=== PATIENT | female | born 1955 | race Caucasian/White ===

== ENCOUNTER 2017-05-19 11:53 | Inpatient (IN) | payer MEDICAID ==
[2017-05-19] MEDS ORDERED: VANCOMYCIN 1 GM (PMX) 250 ML IVPB (12:25)
[2017-05-19] MEDS ORDERED: ACETAMINOPHEN 325 MG TAB PO (13:00)
[2017-05-19] MEDS ORDERED: ONDANSETRON 4 MG INJ IV (13:00)
[2017-05-19 13:23] LABS: ADD MAN DIFF? NO
[2017-05-19 13:27] LABS: WHITE BLOOD COUNT 8.2 10^3/ul (4.8-10.8)
[2017-05-19 13:27] LABS: BASOPHIL # 0.1 10^3/ul (0.0-0.1); BASOPHILS % 0.7 % (0.0-2.0); EOSINOPHILS # 0.1 10^3/ul (0.0-0.5); EOSINOPHILS % 1.2 % (0.0-7.0); HEMATOCRIT 36.8 % (37.0-47.0); HEMOGLOBIN 11.6 g/dl (12.0-16.0); LYMPHOCYTES # 0.9 10^3/ul (0.8-2.9); LYMPHOCYTES % 10.4 % (15.0-51.0); MEAN CORPUSCULAR HGB CONC 31.5 g/dl (32.0-37.0); MEAN CORPUSCULAR VOLUME 101.7 fl (82.0-101.0); MEAN PLATELET VOLUME 10.7 fl (7.4-10.4); MONOCYTE # 0.5 10^3/ul (0.3-0.9); MONOCYTES % 5.6 % (0.0-11.0); NEUTROPHIL # 6.7 10^3/ul (1.6-7.5); NEUTROPHILS % 81.7 % (39.0-77.0); PLATELET COUNT 211 10^3/UL (140-415); RED BLOOD COUNT 3.62 10^6/ul (4.20-5.40); RED CELL DISTRIBUTION WIDTH 14.5 % (11.5-14.5)
[2017-05-19 13:49] LABS: ALANINE AMINOTRANSFERASE 39 IU/L (13-69); ALBUMIN 3.6 g/dl (3.3-4.9); ALBUMIN/GLOBULIN RATIO 0.73; ALKALINE PHOSPHATASE 267 IU/L (42-121); ANION GAP 21 (8-16); ASPARTATE AMINO TRANSFERASE 40 IU/L (15-46); BILIRUBIN,INDIRECT 0.1 mg/dl (0-1.1); BILIRUBIN,TOTAL 0.1 mg/dl (0.2-1.3); BLOOD UREA NITROGEN 33 mg/dl (7-20); CALCIUM 8.7 mg/dl (8.4-10.2); CARBON DIOXIDE 21 mmol/L (21-31); CHLORIDE 101 mmol/L (97-110); CREATININE 5.58 mg/dl (0.44-1.00); SODIUM 138 mmol/L (135-144); TOTAL PROTEIN 8.5 g/dl (6.1-8.1)
[2017-05-19 13:56] LABS: GLUCOSE 460 mg/dl (70-220)
[2017-05-19 13:57] LABS: LACTIC ACID 3.4 mmol/L (0.5-2.0)
[2017-05-19 13:59] LABS: INR 1.05; PROTIME 13.8 Sec (11.9-14.9); PT RATIO 1.1
[2017-05-19 14:00] LABS: PARTIAL THROMBOPLASTIN TIME 30.4 Sec (25.0-35.0)
[2017-05-19] MEDS: PROMETHAZINE 25 MG TAB PO (15:32)
[2017-05-19] MEDS: CEFEPIME 2GM/50 ML (PMX) 50 ML IVPB (15:35)
[2017-05-19] MEDS ORDERED: DEXTROSE 50% 50 ML SYRINGE IV (16:00)
[2017-05-19] MEDS ORDERED: GLUCAGON 1 MG INJ IM (16:00)
[2017-05-19] MEDS ORDERED: GLUCOSE GEL 15 GRAM TUBE PO ×2 (16:00)
[2017-05-19] MEDS: GENTAMICIN IN NACL, ISO-OSM 50 ML IVPB (16:08)
[2017-05-19] MEDS ORDERED: DIPHENHYDRAMINE 50 MG INJ IM (16:30)
[2017-05-19] MEDS: DIPHENHYDRAMINE 50 MG INJ IV (16:37)
[2017-05-19] MEDS: SEVELAMER CARBONATE 0.8 GM PKT PO (17:17)
[2017-05-19] MEDS: INSULIN ASPART [NOVOLOG] 3 ML PEN SC ×3 (17:46→20:33)
[2017-05-19] MEDS: INSULIN GLARGINE [LANtus] 3 ML PEN SC (20:36)
[2017-05-19] MEDS: ZOLPIDEM 5 MG TAB PO (22:35)
[2017-05-20] MEDS: ACCU-CHEK XX (02:00)
[2017-05-20] MEDS ORDERED: METOPROLOL 5 MG INJ (07:00)
[2017-05-20] MEDS: DEXTROSE 50% 50 ML SYRINGE IV (07:25)
[2017-05-20] MEDS: INSULIN ASPART [NOVOLOG] 3 ML PEN SC ×4 (07:42→21:00)
[2017-05-20] MEDS: SEVELAMER CARBONATE 0.8 GM PKT PO ×3 (07:53→17:04)
[2017-05-20] MEDS ORDERED: MIDAZOLAM 1 MG/ML 2 ML INJ (08:04)
[2017-05-20] MEDS ORDERED: ROPIVACAINE 0.5 % 30 ML VIAL (08:05)
[2017-05-20 08:25] LABS: ADD MAN DIFF? NO
[2017-05-20 08:29] LABS: BASOPHILS % 0.4 % (0.0-2.0); EOSINOPHILS # 0.1 10^3/ul (0.0-0.5); EOSINOPHILS % 1.1 % (0.0-7.0); HEMATOCRIT 33.1 % (37.0-47.0); HEMOGLOBIN 10.9 g/dl (12.0-16.0); LYMPHOCYTES # 0.7 10^3/ul (0.8-2.9); LYMPHOCYTES % 7.9 % (15.0-51.0); MEAN CORPUSCULAR HEMOGLOBIN 32.8 pg (29.0-33.0); MEAN CORPUSCULAR HGB CONC 32.9 g/dl (32.0-37.0); MEAN CORPUSCULAR VOLUME 99.7 fl (82.0-101.0); MEAN PLATELET VOLUME 10.6 fl (7.4-10.4); MONOCYTE # 0.8 10^3/ul (0.3-0.9); MONOCYTES % 8.7 % (0.0-11.0); NEUTROPHIL # 7.4 10^3/ul (1.6-7.5); NEUTROPHILS % 81.6 % (39.0-77.0); PLATELET COUNT 211 10^3/UL (140-415); RED BLOOD COUNT 3.32 10^6/ul (4.20-5.40); RED CELL DISTRIBUTION WIDTH 14.1 % (11.5-14.5)
[2017-05-20] MEDS: BUPIVACAINE 0.5% (SDV) 30 ML INJ (08:30)
[2017-05-20] MEDS: LIDOCAINE 1% (MPF) 30 ML INJ (08:30)
[2017-05-20] MEDS ORDERED: GENTAMICIN 80 MG INJ (08:43)
[2017-05-20] MEDS: IOHEXOL 300MG/ML 30 ML BTL (08:45)
[2017-05-20 08:50] LABS: ANION GAP 20 (8-16); BLOOD UREA NITROGEN 41 mg/dl (7-20); CALCIUM 8.6 mg/dl (8.4-10.2); CARBON DIOXIDE 24 mmol/L (21-31); CHLORIDE 103 mmol/L (97-110); CREATININE 6.05 mg/dl (0.44-1.00); GLUCOSE 69 mg/dl (70-220); MAGNESIUM 1.8 mg/dl (1.7-2.5); PHOSPHORUS 7.3 mg/dl (2.5-4.9); POTASSIUM 4.1 mmol/L (3.5-5.1); SODIUM 143 mmol/L (135-144)
[2017-05-20] MEDS: HEPARIN 1000 UNITS/ML 10 ML INJ ×2 (09:00→09:05)
[2017-05-20] MEDS ORDERED: DIPHENHYDRAMINE 50 MG INJ IV (10:30)
[2017-05-20] MEDS ORDERED: ONDANSETRON 4 MG INJ IV (10:30)
[2017-05-20] MEDS ORDERED: FENTAnyl 50 MCG/ML VIAL IV (10:30)
[2017-05-20] MEDS ORDERED: hydrALAzine 20 MG INJ IV (10:30)
[2017-05-20] MEDS ORDERED: HYDROmorphONE (0.2 MG/ML) 10ML SYG IV (10:30)
[2017-05-20] MEDS ORDERED: LABETALOL HCL 20MG INJ IV (10:30)
[2017-05-20] MEDS: METOPROLOL (XL) 100 MG TAB PO (11:50)
[2017-05-20 12:02] LABS: HEPATITIS B SURFACE ANTIGEN NEGATIVE (NEGATIVE)
[2017-05-20] MEDS: DESMOPRESSIN IVPB (14:00)
[2017-05-20] MEDS: SOD CHLORIDE 0.9% IVPB (14:00)
[2017-05-20 14:20] LABS: HEMATOCRIT 29.1 % (37.0-47.0); HEMOGLOBIN 9.6 g/dl (12.0-16.0)
[2017-05-20] MEDS ORDERED: PROMETHAZINE 25 MG TAB PO (14:30)
[2017-05-20] MEDS ORDERED: GENTAMICIN IV PER PHARMACY XX (14:30)
[2017-05-20] MEDS: PROMETHAZINE 25 MG TAB PO (15:23)
[2017-05-20] MEDS: CEFEPIME 1GM/50 ML IVPB (17:04)
[2017-05-20] MEDS: INSULIN GLARGINE [LANtus] 3 ML PEN SC (20:37)
[2017-05-20] MEDS ORDERED: CEFEPIME 1GM/50 ML (PMX) 50 ML IVPB (21:00)
[2017-05-20 22:30] LABS: IMMEDIATE SPIN CROSSMATCH 1 1
[2017-05-20] MEDS: ZOLPIDEM 5 MG TAB PO (22:45)
[2017-05-21] MEDS: DIPHENHYDRAMINE 50 MG INJ IV ×2 (01:20→21:19)
[2017-05-21] MEDS: ACCU-CHEK XX ×3 (02:00→21:17)
[2017-05-21 06:36] LABS: ADD MAN DIFF? NO
[2017-05-21 06:43] LABS: BASOPHILS % 0.3 % (0.0-2.0); EOSINOPHILS # 0.1 10^3/ul (0.0-0.5); HEMATOCRIT 27.9 % (37.0-47.0); HEMOGLOBIN 9.2 g/dl (12.0-16.0); LYMPHOCYTES % 8.8 % (15.0-51.0); MEAN CORPUSCULAR HEMOGLOBIN 31.9 pg (29.0-33.0); MEAN CORPUSCULAR VOLUME 96.9 fl (82.0-101.0); MEAN PLATELET VOLUME 10.9 fl (7.4-10.4); MONOCYTE # 0.9 10^3/ul (0.3-0.9); NEUTROPHIL # 9.5 10^3/ul (1.6-7.5); NEUTROPHILS % 81.6 % (39.0-77.0); PLATELET COUNT 165 10^3/UL (140-415); RED BLOOD COUNT 2.88 10^6/ul (4.20-5.40); RED CELL DISTRIBUTION WIDTH 16.5 % (11.5-14.5)
[2017-05-21 06:43] LABS: WHITE BLOOD COUNT 11.6 10^3/ul (4.8-10.8)
[2017-05-21 07:03] LABS: ANION GAP 19 (8-16); BLOOD UREA NITROGEN 44 mg/dl (7-20); CARBON DIOXIDE 19 mmol/L (21-31); CHLORIDE 110 mmol/L (97-110); CREATININE 6.53 mg/dl (0.44-1.00); GLUCOSE 141 mg/dl (70-220); MAGNESIUM 1.9 mg/dl (1.7-2.5); PHOSPHORUS 6.5 mg/dl (2.5-4.9); POTASSIUM 4.5 mmol/L (3.5-5.1); SODIUM 143 mmol/L (135-144)
[2017-05-21 07:07] LABS: GENTAMICIN,RANDOM 7.6 ug/ml
[2017-05-21] MEDS: INSULIN ASPART [NOVOLOG] 3 ML PEN SC ×4 (08:11→20:04)
[2017-05-21] MEDS: SEVELAMER CARBONATE 0.8 GM PKT PO ×3 (08:19→17:37)
[2017-05-21] MEDS: METOPROLOL (XL) 100 MG TAB PO (08:51)
[2017-05-21] MEDS: DEXTROSE 50% 50 ML SYRINGE IV (12:06)
[2017-05-21] MEDS: morphine 2 MG INJ IV (12:06)
[2017-05-21] MEDS ORDERED: GENTAMICIN 70 MG in SOD CHLORIDE 0.9% 50 ML IVPB (17:00)
[2017-05-21] MEDS: CEFEPIME 1GM/50 ML IVPB (17:36)
[2017-05-21] MEDS: ALTEPLASE (CATHFLO) 2 MG INJ CATHETER ×3 (18:10→21:07)
[2017-05-21] MEDS: ATORVASTATIN 20 MG TAB PO (21:19)
[2017-05-21] MEDS: INSULIN GLARGINE [LANtus] 3 ML PEN SC (21:26)
[2017-05-21] MEDS: ZOLPIDEM 5 MG TAB PO (22:14)
[2017-05-22] MEDS: ACCU-CHEK XX ×8 (02:00→21:08)
[2017-05-22 06:05] LABS: ADD MAN DIFF? NO
[2017-05-22 06:09] LABS: BASOPHILS % 0.4 % (0.0-2.0); EOSINOPHILS # 0.1 10^3/ul (0.0-0.5); EOSINOPHILS % 1.5 % (0.0-7.0); HEMATOCRIT 27.4 % (37.0-47.0); LYMPHOCYTES # 1.2 10^3/ul (0.8-2.9); LYMPHOCYTES % 12.7 % (15.0-51.0); MEAN CORPUSCULAR HGB CONC 32.8 g/dl (32.0-37.0); MEAN CORPUSCULAR VOLUME 97.5 fl (82.0-101.0); MONOCYTE # 0.9 10^3/ul (0.3-0.9); MONOCYTES % 9.3 % (0.0-11.0); NEUTROPHILS % 75.9 % (39.0-77.0); PLATELET COUNT 168 10^3/UL (140-415); RED BLOOD COUNT 2.81 10^6/ul (4.20-5.40); RED CELL DISTRIBUTION WIDTH 16.5 % (11.5-14.5)
[2017-05-22 06:09] LABS: WHITE BLOOD COUNT 9.2 10^3/ul (4.8-10.8)
[2017-05-22 06:59] LABS: ANION GAP 15 (8-16); BLOOD UREA NITROGEN 29 mg/dl (7-20); CALCIUM 8.1 mg/dl (8.4-10.2); CARBON DIOXIDE 26 mmol/L (21-31); CHLORIDE 106 mmol/L (97-110); GLUCOSE 64 mg/dl (70-220); MAGNESIUM 1.8 mg/dl (1.7-2.5); POTASSIUM 4.2 mmol/L (3.5-5.1); SODIUM 143 mmol/L (135-144)
[2017-05-22] MEDS: INSULIN ASPART [NOVOLOG] 3 ML PEN SC ×7 (07:55→21:00)
[2017-05-22] MEDS ORDERED: INSULIN GLARGINE [LANtus] 3 ML PEN SC (08:00)
[2017-05-22] MEDS: ASPIRIN 81 MG TAB PO (08:11)
[2017-05-22] MEDS: SEVELAMER CARBONATE 0.8 GM PKT PO ×3 (08:12→17:17)
[2017-05-22] MEDS: INSULIN GLARGINE [LANtus] 3 ML PEN SC ×2 (08:13→21:12)
[2017-05-22] MEDS: METOPROLOL (XL) 100 MG TAB PO (08:15)
[2017-05-22] MEDS: LISINOPRIL 20 MG TAB PO (12:02)
[2017-05-22] MEDS: EPOETIN 10000 UNITS/1 ML INJ (ESRD) SC (12:04)
[2017-05-22] MEDS: morphine 2 MG INJ IV (14:56)
[2017-05-22] MEDS: HYDROGEN PEROXIDE 118 ML TOP (14:57)
[2017-05-22] MEDS: CEFEPIME 1GM/50 ML IVPB (15:36)
[2017-05-22] MEDS: ATORVASTATIN 20 MG TAB PO (21:00)
[2017-05-22 21:01] LABS: THYROID STIMULATING HORMONE 0.391 MIU/L (0.465-4.680)
[2017-05-22] MEDS: DIPHENHYDRAMINE 50 MG INJ IV (21:17)
[2017-05-22 21:18] LABS: HEPATITIS C VIRAL ANTIBODY NEGATIVE (NEGATIVE)
[2017-05-22] MEDS: ZOLPIDEM 5 MG TAB PO (23:26)
[2017-05-23] MEDS: ACCU-CHEK XX ×8 (02:00→21:03)
[2017-05-23] MEDS: INSULIN ASPART [NOVOLOG] 3 ML PEN SC ×7 (07:55→21:00)
[2017-05-23] MEDS: SEVELAMER CARBONATE 0.8 GM PKT PO ×3 (08:15→17:37)
[2017-05-23] MEDS: ASPIRIN 81 MG TAB PO (08:15)
[2017-05-23] MEDS: METOPROLOL (XL) 100 MG TAB PO (08:16)
[2017-05-23] MEDS: LISINOPRIL 20 MG TAB PO (08:18)
[2017-05-23] MEDS: INSULIN GLARGINE [LANtus] 3 ML PEN SC ×2 (08:32→21:45)
[2017-05-23] MEDS: HYDROGEN PEROXIDE 118 ML TOP (08:33)
[2017-05-23 08:38] LABS: CHOL/HDL RATIO 2.9 RATIO; HDL CHOLESTEROL 33 mg/dl (35-98); LDL CHOLESTEROL,CALCULATED 46 mg/dl; TRIGLYCERIDES 85 mg/dl (0-149)
[2017-05-23 08:38] LABS: CHOLESTEROL 96 mg/dl (100-200)
[2017-05-23] MEDS ORDERED: SOD CHLORIDE 0.9% IVPB (12:00)
[2017-05-23] MEDS ORDERED: DAPTOMYCIN IVPB (12:00)
[2017-05-23] MEDS: HEPARIN 1000 UNITS/ML 10 ML INJ CATHETER (12:47)
[2017-05-23] MEDS: GENTAMICIN 60 MG in SOD CHLORIDE 0.9% 50 ML IVPB (14:29)
[2017-05-23] MEDS: PROMETHAZINE 25 MG TAB PO (14:30)
[2017-05-23 15:06] LABS: RAPID PLASMA REAGIN NONREACTIVE (NR)
[2017-05-23] MEDS: LINEZOLID 600 MG/D5W (PMX) 300 ML IVPB ×2 (15:12→22:37)
[2017-05-23] MEDS: EPOETIN 10000 UNITS/1 ML INJ (ESRD) SC (17:38)
[2017-05-23] MEDS: DIPHENHYDRAMINE 50 MG INJ IV (20:56)
[2017-05-23] MEDS: ATORVASTATIN 20 MG TAB PO (20:57)
[2017-05-24] MEDS: DIPHENHYDRAMINE 50 MG INJ IV ×2 (01:07→21:03)
[2017-05-24] MEDS: morphine LIQ (10 MG/5 ML) CUP PO (01:11)
[2017-05-24] MEDS: PROMETHAZINE 25 MG TAB PO ×2 (01:24→21:03)
[2017-05-24] MEDS: ACCU-CHEK XX ×8 (01:55→21:09)
[2017-05-24] MEDS: INSULIN ASPART [NOVOLOG] 3 ML PEN SC ×7 (07:55→21:00)
[2017-05-24] MEDS: SEVELAMER CARBONATE 0.8 GM PKT PO ×3 (09:20→17:58)
[2017-05-24] MEDS: ASPIRIN 81 MG TAB PO (09:21)
[2017-05-24] MEDS: METOPROLOL (XL) 100 MG TAB PO (09:21)
[2017-05-24] MEDS: LISINOPRIL 20 MG TAB PO (09:21)
[2017-05-24] MEDS: LINEZOLID 600 MG/D5W (PMX) 300 ML IVPB ×2 (09:21→21:03)
[2017-05-24] MEDS: INSULIN GLARGINE [LANtus] 3 ML PEN SC ×2 (09:51→21:00)
[2017-05-24] MEDS: HYDROGEN PEROXIDE 118 ML TOP (09:55)
[2017-05-24] MEDS: ATORVASTATIN 20 MG TAB PO (21:00)
[2017-05-25] MEDS: ACCU-CHEK XX ×8 (02:00→21:58)
[2017-05-25] MEDS: PROMETHAZINE 25 MG TAB PO ×2 (05:39→09:31)
[2017-05-25 05:54] LABS: ADD MAN DIFF? NO
[2017-05-25 06:01] LABS: BASOPHILS % 0.5 % (0.0-2.0); EOSINOPHILS # 0.1 10^3/ul (0.0-0.5); EOSINOPHILS % 1.8 % (0.0-7.0); HEMATOCRIT 26.9 % (37.0-47.0); HEMOGLOBIN 8.7 g/dl (12.0-16.0); LYMPHOCYTES # 1.1 10^3/ul (0.8-2.9); LYMPHOCYTES % 17.1 % (15.0-51.0); MEAN CORPUSCULAR HEMOGLOBIN 31.4 pg (29.0-33.0); MEAN CORPUSCULAR HGB CONC 32.3 g/dl (32.0-37.0); MEAN CORPUSCULAR VOLUME 97.1 fl (82.0-101.0); MEAN PLATELET VOLUME 10.9 fl (7.4-10.4); MONOCYTE # 0.6 10^3/ul (0.3-0.9); MONOCYTES % 9.6 % (0.0-11.0); NEUTROPHIL # 4.4 10^3/ul (1.6-7.5); NEUTROPHILS % 70.7 % (39.0-77.0); PLATELET COUNT 177 10^3/UL (140-415); RED BLOOD COUNT 2.77 10^6/ul (4.20-5.40); RED CELL DISTRIBUTION WIDTH 14.6 % (11.5-14.5)
[2017-05-25 06:01] LABS: WHITE BLOOD COUNT 6.3 10^3/ul (4.8-10.8)
[2017-05-25 06:24] LABS: ANION GAP 15 (8-16); BLOOD UREA NITROGEN 36 mg/dl (7-20); CALCIUM 8.1 mg/dl (8.4-10.2); CARBON DIOXIDE 25 mmol/L (21-31); CHLORIDE 101 mmol/L (97-110); CREATININE 7.32 mg/dl (0.44-1.00); GLUCOSE 117 mg/dl (70-220); PHOSPHORUS 6.8 mg/dl (2.5-4.9); POTASSIUM 4.5 mmol/L (3.5-5.1); SODIUM 136 mmol/L (135-144)
[2017-05-25] MEDS: INSULIN ASPART [NOVOLOG] 3 ML PEN SC ×7 (07:55→21:00)
[2017-05-25] MEDS: LINEZOLID 600 MG/D5W (PMX) 300 ML IVPB ×2 (08:38→21:58)
[2017-05-25] MEDS: ASPIRIN 81 MG TAB PO (09:00)
[2017-05-25] MEDS: HYDROGEN PEROXIDE 118 ML TOP (09:00)
[2017-05-25] MEDS: SEVELAMER CARBONATE 0.8 GM PKT PO ×3 (09:20→17:31)
[2017-05-25] MEDS: LISINOPRIL 20 MG TAB PO (09:21)
[2017-05-25] MEDS: METOPROLOL (XL) 100 MG TAB PO (09:22)
[2017-05-25] MEDS: ALTEPLASE (CATHFLO) 2 MG INJ CATHETER (14:58)
[2017-05-25] MEDS ORDERED: ALTEPLASE (CATHFLO) 2 MG INJ CATHETER (15:00)
[2017-05-25] MEDS: GLUCOSE GEL 15 GRAM TUBE BUCCAL (19:56)
[2017-05-25] MEDS: INSULIN GLARGINE [LANtus] 3 ML PEN SC ×2 (20:03→20:51)
[2017-05-25] MEDS: DEXTROSE 50% 50 ML SYRINGE IV (20:45)
[2017-05-25] MEDS: ATORVASTATIN 20 MG TAB PO (21:00)
[2017-05-25] MEDS ORDERED: PROCHLORPERAZINE 10 MG INJ IV (21:30)
[2017-05-26] MEDS: ALTEPLASE (CATHFLO) 2 MG INJ CATHETER ×2 (01:57→01:59)
[2017-05-26] MEDS: ACCU-CHEK XX ×8 (02:48→21:45)
[2017-05-26] MEDS: EPOETIN 10000 UNITS/1 ML INJ (ESRD) SC (03:35)
[2017-05-26] MEDS: PROMETHAZINE 25 MG TAB PO (03:36)
[2017-05-26] MEDS: morphine LIQ (10 MG/5 ML) CUP PO (06:14)
[2017-05-26] MEDS: SEVELAMER CARBONATE 0.8 GM PKT PO ×3 (07:55→17:55)
[2017-05-26] MEDS: INSULIN ASPART [NOVOLOG] 3 ML PEN SC ×7 (07:55→21:00)
[2017-05-26] MEDS: HYDROGEN PEROXIDE 118 ML TOP (09:00)
[2017-05-26] MEDS: LINEZOLID 600 MG/D5W (PMX) 300 ML IVPB ×2 (09:00→21:00)
[2017-05-26] MEDS: LISINOPRIL 20 MG TAB PO ×2 (09:00→21:00)
[2017-05-26] MEDS: INSULIN GLARGINE [LANtus] 3 ML PEN SC ×3 (09:00→21:00)
[2017-05-26] MEDS: ASPIRIN 81 MG TAB PO (09:00)
[2017-05-26] MEDS: METOPROLOL (XL) 100 MG TAB PO (11:30)
[2017-05-26 12:06] LABS: IRON 76 ug/dl (35-150)
[2017-05-26 12:15] LABS: % IRON SATURATION 44 % SAT (22-52); TOTAL IRON BINDING CAPACITY 171 ug/dl (241-421)
[2017-05-26] MEDS: ATORVASTATIN 20 MG TAB PO (21:00)
[2017-05-27] MEDS: DIPHENHYDRAMINE 50 MG INJ IV ×2 (00:55→21:35)
[2017-05-27] MEDS: ACCU-CHEK XX ×6 (02:46→14:08)
[2017-05-27 06:57] LABS: ADD MAN DIFF? NO
[2017-05-27 06:58] LABS: WHITE BLOOD COUNT 7.2 10^3/ul (4.8-10.8)
[2017-05-27 06:58] LABS: BASOPHIL # 0.1 10^3/ul (0.0-0.1); BASOPHILS % 0.8 % (0.0-2.0); EOSINOPHILS # 0.1 10^3/ul (0.0-0.5); EOSINOPHILS % 1.8 % (0.0-7.0); HEMATOCRIT 28.8 % (37.0-47.0); HEMOGLOBIN 9.3 g/dl (12.0-16.0); LYMPHOCYTES % 14.4 % (15.0-51.0); MEAN CORPUSCULAR HEMOGLOBIN 31.8 pg (29.0-33.0); MEAN CORPUSCULAR HGB CONC 32.3 g/dl (32.0-37.0); MEAN CORPUSCULAR VOLUME 98.6 fl (82.0-101.0); MEAN PLATELET VOLUME 10.4 fl (7.4-10.4); MONOCYTE # 0.8 10^3/ul (0.3-0.9); MONOCYTES % 11.4 % (0.0-11.0); NEUTROPHIL # 5.2 10^3/ul (1.6-7.5); NEUTROPHILS % 71.3 % (39.0-77.0); PLATELET COUNT 251 10^3/UL (140-415); RED BLOOD COUNT 2.92 10^6/ul (4.20-5.40); RED CELL DISTRIBUTION WIDTH 14.9 % (11.5-14.5)
[2017-05-27 07:23] LABS: ALANINE AMINOTRANSFERASE 20 IU/L (13-69); ALBUMIN/GLOBULIN RATIO 0.66; ALKALINE PHOSPHATASE 105 IU/L (42-121); ASPARTATE AMINO TRANSFERASE 17 IU/L (15-46); BLOOD UREA NITROGEN 27 mg/dl (7-20); CALCIUM 7.9 mg/dl (8.4-10.2); CARBON DIOXIDE 27 mmol/L (21-31); GLUCOSE 78 mg/dl (70-220); POTASSIUM 4.4 mmol/L (3.5-5.1); SODIUM 140 mmol/L (135-144); TOTAL PROTEIN 7.5 g/dl (6.1-8.1)
[2017-05-27 07:37] LABS: ANION GAP 16 (8-16); CHLORIDE 101 mmol/L (97-110)
[2017-05-27 07:43] LABS: PHOSPHORUS 6.5 mg/dl (2.5-4.9)
[2017-05-27] MEDS: INSULIN ASPART [NOVOLOG] 3 ML PEN SC ×5 (07:55→17:55)
[2017-05-27] MEDS: LINEZOLID 600 MG/D5W (PMX) 300 ML IVPB ×2 (08:23→21:00)
[2017-05-27] MEDS: LISINOPRIL 20 MG TAB PO ×2 (08:25→21:00)
[2017-05-27] MEDS: SEVELAMER CARBONATE 0.8 GM PKT PO ×3 (08:26→18:14)
[2017-05-27] MEDS: METOPROLOL (XL) 100 MG TAB PO ×2 (08:26→21:00)
[2017-05-27] MEDS: HYDROGEN PEROXIDE 118 ML TOP (08:27)
[2017-05-27] MEDS: INSULIN GLARGINE [LANtus] 3 ML PEN SC ×2 (08:35→21:48)
[2017-05-27] MEDS: ASPIRIN 81 MG TAB PO (08:36)
[2017-05-27] MEDS: ATORVASTATIN 20 MG TAB PO (21:00)
[2017-05-28] MEDS: ACCU-CHEK XX ×2 (07:28→17:18)
[2017-05-28] MEDS: SEVELAMER CARBONATE 0.8 GM PKT PO ×3 (07:55→17:18)
[2017-05-28] MEDS: INSULIN ASPART [NOVOLOG] 3 ML PEN SC ×3 (07:55→17:17)
[2017-05-28] MEDS: LISINOPRIL 20 MG TAB PO ×2 (09:00→20:39)
[2017-05-28] MEDS: METOPROLOL (XL) 100 MG TAB PO ×2 (09:00→20:43)
[2017-05-28] MEDS: INSULIN GLARGINE [LANtus] 3 ML PEN SC ×2 (09:00→21:15)
[2017-05-28] MEDS: LINEZOLID 600 MG/D5W (PMX) 300 ML IVPB ×2 (09:00→20:39)
[2017-05-28] MEDS: ASPIRIN 81 MG TAB PO (09:00)
[2017-05-28] MEDS: HYDROGEN PEROXIDE 118 ML TOP (09:16)
[2017-05-28] MEDS: ALTEPLASE (CATHFLO) 2 MG INJ CATHETER (11:14)
[2017-05-28] MEDS ORDERED: morphine 2 MG INJ (13:48)
[2017-05-28] MEDS: morphine 2 MG INJ IV (13:51)
[2017-05-28] MEDS ORDERED: IODIXANOL LOCM 100 ML BTL (14:37)
[2017-05-28] MEDS ORDERED: LIDOCAINE 1% (MDV) 20 ML INJ (14:37)
[2017-05-28] MEDS ORDERED: HEPARIN 1000 UNITS/ML 10 ML INJ (14:41)
[2017-05-28] MEDS ORDERED: FENTAnyl 50 MCG/ML VIAL (14:58)
[2017-05-28] MEDS ORDERED: IODIXANOL LOCM 50 ML BTL (15:28)
[2017-05-28] MEDS: PROMETHAZINE 25 MG TAB PO (17:18)
[2017-05-28] MEDS: EPOETIN 10000 UNITS/1 ML INJ (ESRD) SC (17:19)
[2017-05-28] MEDS: GENTAMICIN 60 MG in SOD CHLORIDE 0.9% 50 ML IVPB (18:26)
[2017-05-28] MEDS: ATORVASTATIN 20 MG TAB PO (20:39)
[2017-05-28] MEDS: DIPHENHYDRAMINE 50 MG INJ IV (20:42)
[2017-05-29] MEDS: ACCU-CHEK XX ×2 (07:25→17:45)
[2017-05-29 07:32] LABS: ADD MAN DIFF? NO
[2017-05-29 07:35] LABS: BASOPHIL # 0.1 10^3/ul (0.0-0.1); BASOPHILS % 0.7 % (0.0-2.0); EOSINOPHILS # 0.2 10^3/ul (0.0-0.5); HEMATOCRIT 30.8 % (37.0-47.0); HEMOGLOBIN 9.8 g/dl (12.0-16.0); LYMPHOCYTES # 1.2 10^3/ul (0.8-2.9); MEAN CORPUSCULAR HEMOGLOBIN 31.9 pg (29.0-33.0); MEAN CORPUSCULAR HGB CONC 31.8 g/dl (32.0-37.0); MEAN CORPUSCULAR VOLUME 100.3 fl (82.0-101.0); MEAN PLATELET VOLUME 10.3 fl (7.4-10.4); MONOCYTE # 0.9 10^3/ul (0.3-0.9); MONOCYTES % 11.2 % (0.0-11.0); NEUTROPHIL # 5.3 10^3/ul (1.6-7.5); NEUTROPHILS % 69.7 % (39.0-77.0); PLATELET COUNT 261 10^3/UL (140-415); RED BLOOD COUNT 3.07 10^6/ul (4.20-5.40)
[2017-05-29 07:35] LABS: WHITE BLOOD COUNT 7.6 10^3/ul (4.8-10.8)
[2017-05-29] MEDS: SEVELAMER CARBONATE 0.8 GM PKT PO ×3 (07:55→17:46)
[2017-05-29] MEDS: INSULIN ASPART [NOVOLOG] 3 ML PEN SC ×3 (07:55→17:48)
[2017-05-29 08:01] LABS: ANION GAP 16 (8-16); BLOOD UREA NITROGEN 26 mg/dl (7-20); CARBON DIOXIDE 25 mmol/L (21-31); CHLORIDE 104 mmol/L (97-110); CREATININE 5.65 mg/dl (0.44-1.00); GLUCOSE 86 mg/dl (70-220); MAGNESIUM 1.9 mg/dl (1.7-2.5); PHOSPHORUS 5.8 mg/dl (2.5-4.9); POTASSIUM 4.9 mmol/L (3.5-5.1); SODIUM 140 mmol/L (135-144)
[2017-05-29] MEDS: LISINOPRIL 20 MG TAB PO ×2 (09:00→21:00)
[2017-05-29] MEDS: HYDROGEN PEROXIDE 118 ML TOP (09:00)
[2017-05-29] MEDS: METOPROLOL (XL) 100 MG TAB PO ×2 (09:00→21:09)
[2017-05-29] MEDS: LINEZOLID 600 MG/D5W (PMX) 300 ML IVPB ×2 (09:00→21:00)
[2017-05-29] MEDS: ASPIRIN 81 MG TAB PO (09:00)
[2017-05-29] MEDS: INSULIN GLARGINE [LANtus] 3 ML PEN SC ×2 (09:00→21:12)
[2017-05-29] MEDS: morphine 2 MG INJ IV (16:05)
[2017-05-29] MEDS: ATORVASTATIN 20 MG TAB PO (21:00)
[2017-05-29] MEDS: DIPHENHYDRAMINE 50 MG INJ IV (22:18)
[2017-05-30] MEDS: INSULIN ASPART [NOVOLOG] 3 ML PEN SC ×3 (08:15→18:00)
[2017-05-30] MEDS: SEVELAMER CARBONATE 0.8 GM PKT PO ×3 (08:31→20:26)
[2017-05-30] MEDS: ACCU-CHEK XX ×2 (08:32→17:45)
[2017-05-30] MEDS: ASPIRIN 81 MG TAB PO (08:33)
[2017-05-30] MEDS: LISINOPRIL 20 MG TAB PO ×2 (09:00→20:27)
[2017-05-30] MEDS: HYDROGEN PEROXIDE 118 ML TOP (09:00)
[2017-05-30] MEDS: METOPROLOL (XL) 100 MG TAB PO ×2 (09:00→20:27)
[2017-05-30] MEDS: LINEZOLID 600 MG/D5W (PMX) 300 ML IVPB ×2 (09:21→20:28)
[2017-05-30] MEDS: PROMETHAZINE 25 MG TAB PO ×2 (11:23→20:51)
[2017-05-30] MEDS: INSULIN GLARGINE [LANtus] 3 ML PEN SC ×2 (12:09→20:34)
[2017-05-30] MEDS: HEPARIN 1000 UNITS/ML 10 ML INJ CATHETER (19:20)
[2017-05-30] MEDS: EPOETIN 10000 UNITS/1 ML INJ (ESRD) SC (20:33)
[2017-05-30] MEDS: ATORVASTATIN 20 MG TAB PO (20:34)
[2017-05-30] MEDS: DIPHENHYDRAMINE 50 MG INJ IV (22:02)
[2017-05-30] MEDS: GENTAMICIN 60 MG in SOD CHLORIDE 0.9% 50 ML IVPB (23:51)
[2017-05-31] MEDS ORDERED: IODIXANOL LOCM 50 ML BTL (07:30)
[2017-05-31] MEDS ORDERED: LIDOCAINE 1% (MDV) 20 ML INJ (07:30)
[2017-05-31] MEDS ORDERED: MIDAZOLAM 1 MG/ML 2 ML INJ (07:31)
[2017-05-31] MEDS ORDERED: FENTAnyl 50 MCG/ML VIAL (07:33)
[2017-05-31] MEDS ORDERED: BUPIVACAINE 0.5% (SDV) 30 ML INJ (07:33)
[2017-05-31] MEDS: ACCU-CHEK XX (08:00)
[2017-05-31] MEDS: ASPIRIN 81 MG TAB PO (09:00)
[2017-05-31] MEDS: SEVELAMER CARBONATE 0.8 GM PKT PO ×2 (09:07→12:48)
[2017-05-31] MEDS: LISINOPRIL 20 MG TAB PO (09:10)
[2017-05-31] MEDS: INSULIN ASPART [NOVOLOG] 3 ML PEN SC ×2 (09:10→12:51)
[2017-05-31] MEDS: INSULIN GLARGINE [LANtus] 3 ML PEN SC (09:10)
[2017-05-31] MEDS: METOPROLOL (XL) 100 MG TAB PO (09:11)
[2017-05-31] MEDS: HYDROGEN PEROXIDE 118 ML TOP (09:28)
[2017-05-31] MEDS: LINEZOLID 600 MG/D5W (PMX) 300 ML IVPB (09:28)
[2017-05-31] MEDS: PROMETHAZINE 25 MG TAB PO (09:37)
[2017-05-31] MEDS: morphine 2 MG INJ IV (12:48)
[2017-05-31] MEDS: DIPHENHYDRAMINE 50 MG INJ IV (13:43)
== END 2017-05-31 14:38 | disposition home health service (06) | DRG 270 ==
LOC: TEL 05-24 08:30 → MS2 05-29 10:46 → E/R 11:53 → TEL 12:52
PROC: 02PY03Z Removal of Infusion Device from Great Vessel, Open Approach (ICD-10-PCS; principal; 2017-05-20 07:30)
PROC: 0JB60ZZ Excision of Chest Subcutaneous Tissue and Fascia, Open Approach (ICD-10-PCS; 2017-05-20 07:30)
PROC: 0JPT0XZ Removal of Tunneled Vascular Access Device from Trunk Subcutaneous Tissue and Fascia, Open Approach (ICD-10-PCS; 2017-05-20 07:30)
PROC: 0JH63XZ Insertion of Tunneled Vascular Access Device into Chest Subcutaneous Tissue and Fascia, Percutaneous Approach (ICD-10-PCS; 2017-05-20 07:30)
PROC: 06H033Z Insertion of Infusion Device into Inferior Vena Cava, Percutaneous Approach (ICD-10-PCS; 2017-05-20 07:30)
PROC: B519YZA Fluoroscopy of Inferior Vena Cava using Other Contrast, Guidance (ICD-10-PCS; 2017-05-20 07:30)
PROC: 30233N1 Transfusion of Nonautologous Red Blood Cells into Peripheral Vein, Percutaneous Approach (ICD-10-PCS; 2017-05-20 07:30)
PROC: 0J2TXYZ Change Other Device in Trunk Subcutaneous Tissue and Fascia, External Approach (ICD-10-PCS; 2017-05-20 08:10)
PROC: 0JH63XZ Insertion of Tunneled Vascular Access Device into Chest Subcutaneous Tissue and Fascia, Percutaneous Approach (ICD-10-PCS; 2017-05-20 08:10)
PROC: 02HV33Z Insertion of Infusion Device into Superior Vena Cava, Percutaneous Approach (ICD-10-PCS; 2017-05-20 08:10)
PROC: B518YZA Fluoroscopy of Superior Vena Cava using Other Contrast, Guidance (ICD-10-PCS; 2017-05-20 08:10)
PROC: 5A1D70Z Performance of Urinary Filtration, Intermittent, Less than 6 Hours Per Day (ICD-10-PCS; 2017-05-20 08:10)
DX: T82.7XXA Infection and inflammatory reaction due to other cardiac and vascular devices, implants and grafts, initial encounter (principal); A41.50 Gram-negative sepsis, unspecified; I50.33 Acute on chronic diastolic (congestive) heart failure; N18.6 End stage renal disease; A41.02 Sepsis due to Methicillin resistant Staphylococcus aureus; A41.81 Sepsis due to Enterococcus; L02.411 Cutaneous abscess of right axilla; I13.2 Hypertensive heart and chronic kidney disease with heart failure and with stage 5 chronic kidney disease, or end stage renal disease; I42.9 Cardiomyopathy, unspecified; N25.81 Secondary hyperparathyroidism of renal origin; L02.213 Cutaneous abscess of chest wall; T82.41XA Breakdown (mechanical) of vascular dialysis catheter, initial encounter; E10.22 Type 1 diabetes mellitus with diabetic chronic kidney disease; D63.1 Anemia in chronic kidney disease; E78.5 Hyperlipidemia, unspecified; I34.0 Nonrheumatic mitral (valve) insufficiency; L29.9 Pruritus, unspecified; Z88.1 Allergy status to other antibiotic agents; Z99.2 Dependence on renal dialysis; Z79.4 Long term (current) use of insulin
CPT/HCPCS: 36430; 71045; 76937; 78264; 80048; 80053; 80061; 80170; 82728; 82962; 83540; 83605; 83735; 84100; 84443; 85014; 85018; 85025; 85610; 85730; 86592; 86803; 86850; 86900; 86901; 86920; 87040; 87070; 87075; 87081; 87102; 87340; 90935; 93005; 93306; 96374; 99285-25

== ENCOUNTER 2017-07-03 09:17 | Day surgery (SDC) | payer MEDICARE, MEDICAID ==
[2017-07-03] MEDS: LIDOCAINE 1% (MPF) 30 ML INJ
[~2017-07-03 09:17] MED LIST: ATROPINE 1 MG/10 ML SYRINGE IV; DIPHENHYDRAMINE 50 MG INJ IV; EPHEDrine SULFATE 50 MG/5 ML SYG IV; FENTAnyl 50 MCG/ML VIAL IV; LABETALOL HCL 20MG INJ IV; MEPERIDINE 25 MG INJ IV; MIDAZOLAM 1 MG/ML 2 ML INJ IV; ONDANSETRON 4 MG INJ IV; ROPIVACAINE 0.5 % 30 ML VIAL; hydrALAzine 20 MG INJ IV
[2017-07-03] MEDS ORDERED: MIDAZOLAM 1 MG/ML 2 ML INJ (09:33)
[2017-07-03] MEDS ORDERED: NEOSTIGMINE 3 MG/3 ML SYRINGE (09:33)
[2017-07-03] MEDS ORDERED: DEXAMETHASONE 4 MG/ML 1 ML INJ (09:33)
[2017-07-03] MEDS ORDERED: PROPOFOL 20 ML (09:33)
[2017-07-03] MEDS ORDERED: FENTAnyl 50 MCG/ML VIAL ×2 (09:33→15:48)
[2017-07-03] MEDS ORDERED: GLYCOPYRROLATE 0.4 MG INJ (09:33)
[2017-07-03] MEDS ORDERED: LIDOCAINE 2% (SDV) 5 ML INJ (09:33)
[2017-07-03] MEDS ORDERED: ROCURONIUM 50 MG INJ (09:33)
[2017-07-03] MEDS ORDERED: ONDANSETRON 4 MG INJ (09:34)
[2017-07-03] MEDS ORDERED: GELATIN SIZE 100 SPONGE (09:52)
[2017-07-03] MEDS ORDERED: CEFAZOLIN 1 GM INJ (09:57)
[2017-07-03 10:56] LABS: ADD MAN DIFF? NO
[2017-07-03 10:59] LABS: BASOPHILS % 0.4 % (0.0-2.0); EOSINOPHILS # 0.1 10^3/ul (0.0-0.5); HEMATOCRIT 23.2 % (37.0-47.0); HEMOGLOBIN 7.3 g/dl (12.0-16.0); LYMPHOCYTES # 0.9 10^3/ul (0.8-2.9); LYMPHOCYTES % 12.1 % (15.0-51.0); MEAN CORPUSCULAR HEMOGLOBIN 33.8 pg (29.0-33.0); MEAN CORPUSCULAR HGB CONC 31.5 g/dl (32.0-37.0); MEAN CORPUSCULAR VOLUME 107.4 fl (82.0-101.0); MEAN PLATELET VOLUME 10.9 fl (7.4-10.4); MONOCYTE # 0.8 10^3/ul (0.3-0.9); MONOCYTES % 11.8 % (0.0-11.0); NEUTROPHIL # 5.2 10^3/ul (1.6-7.5); NEUTROPHILS % 74.1 % (39.0-77.0); PLATELET COUNT 233 10^3/UL (140-415); RED BLOOD COUNT 2.16 10^6/ul (4.20-5.40); RED CELL DISTRIBUTION WIDTH 17.2 % (11.5-14.5)
[2017-07-03 11:03] LABS: HOLD TRANSMISSIONS 1
[2017-07-03 11:18] LABS: ANION GAP 20 (8-16); CARBON DIOXIDE 27 mmol/L (21-31); CHLORIDE 100 mmol/L (97-110); GLUCOSE 190 mg/dl (70-220)
[2017-07-03 11:20] LABS: BLOOD UREA NITROGEN 32 mg/dl (7-20); CREATININE 4.96 mg/dl (0.44-1.00); POTASSIUM 4.4 mmol/L (3.5-5.1); SODIUM 143 mmol/L (135-144)
[2017-07-03 11:23] LABS: PROTIME 15.4 Sec (11.9-14.9); PT RATIO 1.2
[2017-07-03] MEDS ORDERED: GENTAMICIN 80 MG/NS (PMX) 50 ML (12:10)
[2017-07-03] MEDS: HEPARIN 1000 UNITS/ML 10 ML INJ (12:30)
[2017-07-03] MEDS: THROMBIN 5000 UNIT VIAL ×2 (14:39→14:40)
[2017-07-03 14:44] LABS: IMMEDIATE SPIN CROSSMATCH 1 2
[2017-07-03] MEDS: PROMETHAZINE 25 MG TAB PO (15:54)
[2017-07-03] MEDS: FENTAnyl 50 MCG/ML VIAL IV (15:56)
== END 2017-07-03 18:15 | disposition home or self-care (01) ==
LOC: SDS 09:17
DX: I12.0 Hypertensive chronic kidney disease with stage 5 chronic kidney disease or end stage renal disease (principal); N18.6 End stage renal disease; E10.9 Type 1 diabetes mellitus without complications; E78.5 Hyperlipidemia, unspecified; I50.9 Heart failure, unspecified
CPT/HCPCS: 36430; 71045; 80048; 82962; 85025; 85610; 85730; 86850; 86900; 86901; 86920; 93005

== ENCOUNTER 2017-07-17 23:23 | Inpatient (IN) | payer MEDICARE, MEDICAID ==
[2017-07-18 01:25] LABS: ADD MAN DIFF? NO
[2017-07-18 01:28] LABS: WHITE BLOOD COUNT 9.4 10^3/ul (4.8-10.8)
[2017-07-18 01:28] LABS: BASOPHILS % 0.3 % (0.0-2.0); EOSINOPHILS # 0.1 10^3/ul (0.0-0.5); EOSINOPHILS % 0.8 % (0.0-7.0); HEMATOCRIT 22.5 % (37.0-47.0); LYMPHOCYTES # 0.9 10^3/ul (0.8-2.9); LYMPHOCYTES % 9.2 % (15.0-51.0); MEAN CORPUSCULAR HEMOGLOBIN 32.4 pg (29.0-33.0); MEAN CORPUSCULAR HGB CONC 31.1 g/dl (32.0-37.0); MEAN CORPUSCULAR VOLUME 104.2 fl (82.0-101.0); MEAN PLATELET VOLUME 10.9 fl (7.4-10.4); MONOCYTE # 1.1 10^3/ul (0.3-0.9); MONOCYTES % 11.3 % (0.0-11.0); NEUTROPHIL # 7.3 10^3/ul (1.6-7.5); NEUTROPHILS % 77.9 % (39.0-77.0); NUCLEATED RED BLOOD CELLS% 0.2 /100WBC (0.0-0.0); PLATELET COUNT 233 10^3/UL (140-415); RED BLOOD COUNT 2.16 10^6/ul (4.20-5.40); RED CELL DISTRIBUTION WIDTH 17.2 % (11.5-14.5)
[2017-07-18 01:44] LABS: ANION GAP 19 (8-16); BLOOD UREA NITROGEN 49 mg/dl (7-20); CALCIUM 8.4 mg/dl (8.4-10.2); CARBON DIOXIDE 26 mmol/L (21-31); CHLORIDE 98 mmol/L (97-110); CREATININE 5.33 mg/dl (0.44-1.00); POTASSIUM 4.3 mmol/L (3.5-5.1); SODIUM 139 mmol/L (135-144)
[2017-07-18 01:59] LABS: TROPONIN-I < 0.012 ng/ml (0.000-0.120)
[2017-07-18 02:01] LABS: GLUCOSE 437 mg/dl (70-220)
[2017-07-18 02:11] LABS: B-TYPE NATRIURETIC PEPTIDE > 175000 PG/ML (0-125)
[2017-07-18] MEDS: morphine 4 MG/ML VIAL IV (02:16)
[2017-07-18] MEDS ORDERED: DOCUSATE SODIUM 100 MG CAP PO (04:30)
[2017-07-18] MEDS ORDERED: ACETAMINOPHEN 325 MG TAB PO (04:30)
[2017-07-18] MEDS ORDERED: morphine 2 MG INJ IV ×2 (04:30→10:30)
[2017-07-18] MEDS ORDERED: GLUCOSE GEL 15 GRAM TUBE PO ×2 (04:30)
[2017-07-18] MEDS ORDERED: GLUCAGON 1 MG INJ IM (04:30)
[2017-07-18] MEDS ORDERED: GLUCOSE GEL 15 GRAM TUBE BUCCAL (04:30)
[2017-07-18] MEDS ORDERED: NACL 0.9% 3 ML SYG IV (04:30)
[2017-07-18] MEDS ORDERED: BISACODYL (EC) 5 MG TAB PO (04:30)
[2017-07-18] MEDS: INSULIN LISPRO 100 UNIT/ML VIAL SC (04:43)
[2017-07-18] MEDS: DIPHENHYDRAMINE 50 MG INJ IV ×4 (04:54→17:36)
[2017-07-18] MEDS: INSULIN REGULAR, HUMAN 100 UNIT/1 ML 3ML VIAL IV (07:30)
[2017-07-18] MEDS: INSULIN ASPART [NOVOLOG] 3 ML PEN SC ×6 (07:44→21:00)
[2017-07-18 08:02] LABS: CREATINE KINASE 155 IU/L (23-200)
[2017-07-18 08:15] LABS: CK INDEX 1.9; CK-MB 2.96 ng/ml (0.0-2.4)
[2017-07-18 08:19] LABS: TROPONIN-I < 0.012 ng/ml (0.000-0.120)
[2017-07-18 09:16] LABS: IRON 43 ug/dl (35-150)
[2017-07-18 09:25] LABS: % IRON SATURATION 19 % SAT (22-52); TOTAL IRON BINDING CAPACITY 223 ug/dl (241-421)
[2017-07-18] MEDS: morphine LIQ (10 MG/5 ML) CUP PO (09:27)
[2017-07-18] MEDS: PROMETHAZINE 25 MG TAB PO ×2 (09:34→16:17)
[2017-07-18] MEDS: LOSARTAN 25 MG TAB PO (10:00)
[2017-07-18] MEDS: INSULIN GLARGINE [LANtus] 3 ML PEN SC (10:28)
[2017-07-18 13:14] LABS: CREATINE KINASE 169 IU/L (23-200)
[2017-07-18 13:27] LABS: CK INDEX 2.9; CK-MB 4.84 ng/ml (0.0-2.4); TROPONIN-I < 0.012 ng/ml (0.000-0.120)
[2017-07-18 13:46] LABS: HEPATITIS B SURFACE ANTIGEN NEGATIVE (NEGATIVE)
[2017-07-18] MEDS ORDERED: morphine LIQ (10 MG/5 ML) CUP PO (15:30)
[2017-07-18] MEDS: morphine 2 MG INJ IV ×2 (16:22→21:06)
[2017-07-18 16:49] LABS: HEMATOCRIT 20.2 % (37.0-47.0)
[2017-07-18 16:53] LABS: HEMOGLOBIN 6.4 g/dl (12.0-16.0)
[2017-07-18] MEDS: SOD FERRIC GLUC COMPLX 125 MG in SOD CHLORIDE 0.9% 100 ML IVPB (17:33)
[2017-07-18] MEDS: EPOETIN 10000 UNITS/1 ML INJ (ESRD) SC (17:36)
[2017-07-18 20:32] LABS: HEMATOCRIT 23.3 % (37.0-47.0); HEMOGLOBIN 7.6 g/dl (12.0-16.0)
[2017-07-18] MEDS: DEXTROSE 50% 50 ML SYRINGE IV (20:56)
[2017-07-19] MEDS: ACCU-CHEK XX (02:00)
[2017-07-19 06:52] LABS: ADD MAN DIFF? NO
[2017-07-19 06:56] LABS: ABNORMAL IP MESSAGE 1; BASOPHIL # 0.1 10^3/ul (0.0-0.1); BASOPHILS % 0.3 % (0.0-2.0); EOSINOPHILS # 0.1 10^3/ul (0.0-0.5); EOSINOPHILS % 0.3 % (0.0-7.0); HEMATOCRIT 20.9 % (37.0-47.0); LYMPHOCYTES # 0.9 10^3/ul (0.8-2.9); LYMPHOCYTES % 5.5 % (15.0-51.0); MEAN CORPUSCULAR HEMOGLOBIN 32.2 pg (29.0-33.0); MEAN CORPUSCULAR HGB CONC 31.1 g/dl (32.0-37.0); MEAN CORPUSCULAR VOLUME 103.5 fl (82.0-101.0); MEAN PLATELET VOLUME 10.8 fl (7.4-10.4); MONOCYTE # 1.4 10^3/ul (0.3-0.9); MONOCYTES % 8.1 % (0.0-11.0); NEUTROPHIL # 14.1 10^3/ul (1.6-7.5); NEUTROPHILS % 85.1 % (39.0-77.0); NUCLEATED RED BLOOD CELLS # 0.1 10^3/ul (0.0-0.0); NUCLEATED RED BLOOD CELLS% 0.4 /100WBC (0.0-0.0); PLATELET COUNT 221 10^3/UL (140-415); RED BLOOD COUNT 2.02 10^6/ul (4.20-5.40); RED CELL DISTRIBUTION WIDTH 17.2 % (11.5-14.5)
[2017-07-19 06:56] LABS: WHITE BLOOD COUNT 16.6 10^3/ul (4.8-10.8)
[2017-07-19 06:58] LABS: POSITIVE DIFF @See below
[2017-07-19 07:01] LABS: HEMOGLOBIN 6.5 g/dl (12.0-16.0)
[2017-07-19 07:10] LABS: HEMOGLOBIN A1C 7.7 % (0-5.9)
[2017-07-19 07:21] LABS: ALANINE AMINOTRANSFERASE 19 IU/L (13-69); ALBUMIN 2.6 g/dl (3.3-4.9); ALBUMIN/GLOBULIN RATIO 0.72; ALKALINE PHOSPHATASE 95 IU/L (42-121); ANION GAP 13 (8-16); ASPARTATE AMINO TRANSFERASE 31 IU/L (15-46); BLOOD UREA NITROGEN 22 mg/dl (7-20); CALCIUM 8.1 mg/dl (8.4-10.2); CARBON DIOXIDE 29 mmol/L (21-31); CHLORIDE 103 mmol/L (97-110); CREATININE 3.43 mg/dl (0.44-1.00); GLUCOSE 111 mg/dl (70-220); MAGNESIUM 1.9 mg/dl (1.7-2.5); POTASSIUM 4.2 mmol/L (3.5-5.1); SODIUM 141 mmol/L (135-144); TOTAL PROTEIN 6.2 g/dl (6.1-8.1)
[2017-07-19] MEDS: INSULIN ASPART [NOVOLOG] 3 ML PEN SC ×7 (07:46→21:00)
[2017-07-19] MEDS: INSULIN GLARGINE [LANtus] 3 ML PEN SC ×2 (08:40→20:00)
[2017-07-19] MEDS: LOSARTAN 25 MG TAB PO (08:41)
[2017-07-19] MEDS: PROMETHAZINE 25 MG TAB PO ×2 (08:47→18:53)
[2017-07-19] MEDS ORDERED: ERTAPENEM SODIUM 0.5 GM in SOD CHLORIDE 0.9% 100 ML IVPB (12:30)
[2017-07-19] MEDS: ZYVOX 600 MG TAB PO ×2 (13:03→21:00)
[2017-07-19] MEDS: SOD FERRIC GLUC COMPLX 125 MG in SOD CHLORIDE 0.9% 100 ML IVPB (21:21)
[2017-07-20 01:12] LABS: IMMEDIATE SPIN CROSSMATCH 1 3
[2017-07-20] MEDS: ACCU-CHEK XX (02:00)
[2017-07-20] MEDS ORDERED: ERTAPENEM SODIUM 0.5 GM in SOD CHLORIDE 0.9% 100 ML IVPB (06:00)
[2017-07-20] MEDS: INSULIN ASPART [NOVOLOG] 3 ML PEN SC ×7 (07:55→20:58)
[2017-07-20] MEDS: INSULIN GLARGINE [LANtus] 3 ML PEN SC ×2 (08:00→20:58)
[2017-07-20] MEDS: REGADENOSON 0.4 MG/5 ML SYG (08:55)
[2017-07-20] MEDS: LOSARTAN 25 MG TAB PO ×2 (10:28→10:41)
[2017-07-20] MEDS: ZYVOX 600 MG TAB PO ×2 (10:28→10:40)
[2017-07-20] MEDS: PROMETHAZINE 25 MG TAB PO (10:37)
[2017-07-20] MEDS: ERTAPENEM SODIUM 0.5 GM in SOD CHLORIDE 0.9% 100 ML IVPB ×2 (11:11→11:16)
[2017-07-20 11:35] LABS: ADD MAN DIFF? NO
[2017-07-20 11:38] LABS: WHITE BLOOD COUNT 13.7 10^3/ul (4.8-10.8)
[2017-07-20 11:38] LABS: BASOPHIL # 0.1 10^3/ul (0.0-0.1); BASOPHILS % 0.4 % (0.0-2.0); EOSINOPHILS % 0.2 % (0.0-7.0); HEMATOCRIT 31.8 % (37.0-47.0); HEMOGLOBIN 10.2 g/dl (12.0-16.0); LYMPHOCYTES # 0.8 10^3/ul (0.8-2.9); LYMPHOCYTES % 5.6 % (15.0-51.0); MEAN CORPUSCULAR HEMOGLOBIN 31.3 pg (29.0-33.0); MEAN CORPUSCULAR HGB CONC 32.1 g/dl (32.0-37.0); MEAN CORPUSCULAR VOLUME 97.5 fl (82.0-101.0); MEAN PLATELET VOLUME 10.6 fl (7.4-10.4); MONOCYTE # 1.1 10^3/ul (0.3-0.9); NEUTROPHIL # 11.6 10^3/ul (1.6-7.5); NEUTROPHILS % 84.9 % (39.0-77.0); NUCLEATED RED BLOOD CELLS # 0.1 10^3/ul (0.0-0.0); NUCLEATED RED BLOOD CELLS% 0.4 /100WBC (0.0-0.0); PLATELET COUNT 232 10^3/UL (140-415); RED BLOOD COUNT 3.26 10^6/ul (4.20-5.40); RED CELL DISTRIBUTION WIDTH 19.4 % (11.5-14.5)
[2017-07-20 12:01] LABS: ANION GAP 20 (8-16); BLOOD UREA NITROGEN 36 mg/dl (7-20); CARBON DIOXIDE 25 mmol/L (21-31); CHLORIDE 101 mmol/L (97-110); CREATININE 5.14 mg/dl (0.44-1.00); GLUCOSE 101 mg/dl (70-220); POTASSIUM 4.6 mmol/L (3.5-5.1); SODIUM 141 mmol/L (135-144)
[2017-07-20] MEDS: SOD FERRIC GLUC COMPLX 125 MG in SOD CHLORIDE 0.9% 100 ML IVPB (18:18)
[2017-07-20] MEDS: EPOETIN 10000 UNITS/1 ML INJ (ESRD) SC (18:19)
[2017-07-20] MEDS: HEPARIN 1000 UNITS/ML 10 ML INJ CATHETER (19:36)
[2017-07-21] MEDS: ACCU-CHEK XX (02:00)
[2017-07-21] MEDS: DIPHENHYDRAMINE 50 MG INJ IV ×2 (07:16→21:08)
[2017-07-21 07:54] LABS: ADD MAN DIFF? NO
[2017-07-21 08:11] LABS: WHITE BLOOD COUNT 11.6 10^3/ul (4.8-10.8)
[2017-07-21 08:11] LABS: BASOPHILS % 0.3 % (0.0-2.0); EOSINOPHILS # 0.1 10^3/ul (0.0-0.5); EOSINOPHILS % 1.2 % (0.0-7.0); HEMATOCRIT 30.6 % (37.0-47.0); HEMOGLOBIN 9.8 g/dl (12.0-16.0); LYMPHOCYTES # 0.9 10^3/ul (0.8-2.9); LYMPHOCYTES % 7.9 % (15.0-51.0); MEAN CORPUSCULAR HEMOGLOBIN 31.4 pg (29.0-33.0); MEAN CORPUSCULAR VOLUME 98.1 fl (82.0-101.0); MEAN PLATELET VOLUME 10.6 fl (7.4-10.4); MONOCYTE # 1.2 10^3/ul (0.3-0.9); MONOCYTES % 10.1 % (0.0-11.0); NEUTROPHIL # 9.2 10^3/ul (1.6-7.5); NEUTROPHILS % 79.6 % (39.0-77.0); NUCLEATED RED BLOOD CELLS # 0.1 10^3/ul (0.0-0.0); NUCLEATED RED BLOOD CELLS% 0.9 /100WBC (0.0-0.0); PLATELET COUNT 267 10^3/UL (140-415); RED BLOOD COUNT 3.12 10^6/ul (4.20-5.40)
[2017-07-21] MEDS: INSULIN ASPART [NOVOLOG] 3 ML PEN SC ×7 (08:26→20:38)
[2017-07-21] MEDS: INSULIN GLARGINE [LANtus] 3 ML PEN SC ×2 (08:26→20:38)
[2017-07-21 08:39] LABS: ANION GAP 16 (8-16); BLOOD UREA NITROGEN 21 mg/dl (7-20); CALCIUM 8.1 mg/dl (8.4-10.2); CARBON DIOXIDE 28 mmol/L (21-31); CHLORIDE 101 mmol/L (97-110); CREATININE 3.59 mg/dl (0.44-1.00); GLUCOSE 286 mg/dl (70-220); PHOSPHORUS 3.8 mg/dl (2.5-4.9); SODIUM 141 mmol/L (135-144)
[2017-07-21] MEDS: ZYVOX 600 MG TAB PO (09:00)
[2017-07-21] MEDS: LOSARTAN 25 MG TAB PO (09:21)
[2017-07-21] MEDS: PROMETHAZINE 25 MG TAB PO ×2 (09:49→15:09)
[2017-07-21] MEDS ORDERED: GENTAMICIN IV PER PHARMACY XX (12:00)
[2017-07-21] MEDS ORDERED: GENTAMICIN 120 MG/NS (PMX) 100 ML IVPB (13:00)
[2017-07-21] MEDS: GENTAMICIN 100 MG/50 ML NS IVPB (15:10)
[2017-07-21] MEDS: SOD FERRIC GLUC COMPLX 125 MG in SOD CHLORIDE 0.9% 100 ML IVPB (18:05)
[2017-07-22] MEDS: ACCU-CHEK XX (02:00)
[2017-07-22] MEDS: LOSARTAN 25 MG TAB PO (08:27)
[2017-07-22] MEDS: INSULIN GLARGINE [LANtus] 3 ML PEN SC ×2 (08:33→20:14)
[2017-07-22] MEDS: INSULIN ASPART [NOVOLOG] 3 ML PEN SC ×7 (08:33→20:15)
[2017-07-22] MEDS: PROMETHAZINE 25 MG TAB PO (08:39)
[2017-07-22] MEDS ORDERED: GENTAMICIN 80 MG/NS (PMX) 50 ML IVPB (10:00)
[2017-07-22] MEDS: SOD FERRIC GLUC COMPLX 125 MG in SOD CHLORIDE 0.9% 100 ML IVPB (16:55)
[2017-07-22] MEDS: DIPHENHYDRAMINE 50 MG INJ IV (23:45)
[2017-07-23] MEDS: ACCU-CHEK XX (02:00)
[2017-07-23] MEDS: LOSARTAN 25 MG TAB PO ×2 (08:15→21:27)
[2017-07-23] MEDS: INSULIN GLARGINE [LANtus] 3 ML PEN SC ×2 (08:32→21:43)
[2017-07-23] MEDS: INSULIN ASPART [NOVOLOG] 3 ML PEN SC ×7 (08:32→21:00)
[2017-07-23] MEDS: HEPARIN 1000 UNITS/ML 10 ML INJ CATHETER (11:56)
[2017-07-23] MEDS: COLLAGENASE 5 GM (UD JAR) TOP (12:06)
[2017-07-23 13:09] LABS: OCCULT BLOOD STOOL POSITIVE (NEGATIVE)
[2017-07-23] MEDS: GENTAMICIN 70 MG in SOD CHLORIDE 0.9% 50 ML IVPB (17:38)
[2017-07-23] MEDS: EPOETIN 10000 UNITS/1 ML INJ (ESRD) SC (17:39)
[2017-07-23] MEDS: METOPROLOL (XL) 25 MG TAB PO ×2 (17:58→21:00)
[2017-07-23] MEDS ORDERED: morphine LIQ (10 MG/5 ML) CUP PO (18:30)
[2017-07-23] MEDS: PROMETHAZINE 25 MG TAB PO (19:43)
[2017-07-23] MEDS: DIPHENHYDRAMINE 50 MG INJ IV (23:03)
[2017-07-24] MEDS: ACCU-CHEK XX (02:00)
[2017-07-24 07:51] LABS: ADD MAN DIFF? NO
[2017-07-24 08:01] LABS: BASOPHILS % 0.4 % (0.0-2.0); EOSINOPHILS # 0.2 10^3/ul (0.0-0.5); EOSINOPHILS % 1.4 % (0.0-7.0); HEMATOCRIT 24.3 % (37.0-47.0); HEMOGLOBIN 7.5 g/dl (12.0-16.0); MEAN CORPUSCULAR HEMOGLOBIN 32.5 pg (29.0-33.0); MEAN CORPUSCULAR HGB CONC 30.9 g/dl (32.0-37.0); MEAN CORPUSCULAR VOLUME 105.2 fl (82.0-101.0); MEAN PLATELET VOLUME 10.3 fl (7.4-10.4); MONOCYTE # 1.1 10^3/ul (0.3-0.9); MONOCYTES % 10.9 % (0.0-11.0); NEUTROPHIL # 7.9 10^3/ul (1.6-7.5); NEUTROPHILS % 76.7 % (39.0-77.0); NUCLEATED RED BLOOD CELLS% 0.2 /100WBC (0.0-0.0); PLATELET COUNT 231 10^3/UL (140-415); RED BLOOD COUNT 2.31 10^6/ul (4.20-5.40); RED CELL DISTRIBUTION WIDTH 19.4 % (11.5-14.5)
[2017-07-24 08:01] LABS: WHITE BLOOD COUNT 10.4 10^3/ul (4.8-10.8)
[2017-07-24 08:12] LABS: ANION GAP 17 (8-16); BLOOD UREA NITROGEN 55 mg/dl (7-20); CARBON DIOXIDE 26 mmol/L (21-31); CHLORIDE 104 mmol/L (97-110); CREATININE 4.31 mg/dl (0.44-1.00); GLUCOSE 152 mg/dl (70-220); MAGNESIUM 1.9 mg/dl (1.7-2.5); PHOSPHORUS 4.2 mg/dl (2.5-4.9); POTASSIUM 4.8 mmol/L (3.5-5.1); SODIUM 142 mmol/L (135-144)
[2017-07-24] MEDS: LOSARTAN 25 MG TAB PO ×2 (08:14→21:48)
[2017-07-24] MEDS: METOPROLOL (XL) 25 MG TAB PO (08:14)
[2017-07-24] MEDS: COLLAGENASE 5 GM (UD JAR) TOP (08:14)
[2017-07-24] MEDS: INSULIN ASPART [NOVOLOG] 3 ML PEN SC ×7 (08:15→22:00)
[2017-07-24] MEDS: INSULIN GLARGINE [LANtus] 3 ML PEN SC ×2 (08:17→20:00)
[2017-07-24] MEDS: METOCLOPRAMIDE 5 MG TAB PO ×2 (13:00→21:00)
[2017-07-24] MEDS: LIDOCAINE 2% (MDV) 20 ML INJ (17:42)
[2017-07-24] MEDS: BUPIVACAINE 0.5% (SDV) 30 ML INJ (17:42)
[2017-07-24] MEDS: PANTOPRAZOLE 40 MG INJ IV (18:00)
[2017-07-24] MEDS ORDERED: hydrALAzine 20 MG INJ IV (18:30)
[2017-07-24] MEDS: METOPROLOL (XL) 50 MG TAB PO (21:00)
[2017-07-24] MEDS: DIPHENHYDRAMINE 50 MG INJ IV (23:51)
[2017-07-25] MEDS: ACCU-CHEK XX (02:55)
[2017-07-25] MEDS: PANTOPRAZOLE 40 MG INJ IV ×2 (06:22→17:27)
[2017-07-25] MEDS: DIPHENHYDRAMINE 50 MG INJ IV (06:22)
[2017-07-25 06:57] LABS: ADD MAN DIFF? NO
[2017-07-25 07:06] LABS: ABNORMAL IP MESSAGE 1; BASOPHILS % 0.4 % (0.0-2.0); EOSINOPHILS # 0.2 10^3/ul (0.0-0.5); EOSINOPHILS % 1.3 % (0.0-7.0); HEMATOCRIT 22.4 % (37.0-47.0); LYMPHOCYTES # 1.5 10^3/ul (0.8-2.9); LYMPHOCYTES % 13.2 % (15.0-51.0); MEAN CORPUSCULAR HEMOGLOBIN 32.2 pg (29.0-33.0); MEAN CORPUSCULAR HGB CONC 30.4 g/dl (32.0-37.0); MEAN CORPUSCULAR VOLUME 106.2 fl (82.0-101.0); MEAN PLATELET VOLUME 10.4 fl (7.4-10.4); MONOCYTE # 1.1 10^3/ul (0.3-0.9); NEUTROPHIL # 8.3 10^3/ul (1.6-7.5); NEUTROPHILS % 74.6 % (39.0-77.0); NUCLEATED RED BLOOD CELLS% 0.2 /100WBC (0.0-0.0); PLATELET COUNT 253 10^3/UL (140-415); RED BLOOD COUNT 2.11 10^6/ul (4.20-5.40); RED CELL DISTRIBUTION WIDTH 19.9 % (11.5-14.5)
[2017-07-25 07:06] LABS: WHITE BLOOD COUNT 11.1 10^3/ul (4.8-10.8)
[2017-07-25 07:14] LABS: POSITIVE DIFF @See below
[2017-07-25 07:19] LABS: HEMOGLOBIN 6.8 g/dl (12.0-16.0); PATH REVIEW? YES
[2017-07-25 07:24] LABS: INR 1.23; PARTIAL THROMBOPLASTIN TIME 35.4 Sec (25.0-35.0); PROTIME 15.7 Sec (11.9-14.9); PT RATIO 1.2
[2017-07-25 07:31] LABS: ALANINE AMINOTRANSFERASE 19 IU/L (13-69); ALBUMIN 2.8 g/dl (3.3-4.9); ALBUMIN/GLOBULIN RATIO 0.77; ALKALINE PHOSPHATASE 94 IU/L (42-121); ANION GAP 20 (8-16); ASPARTATE AMINO TRANSFERASE 27 IU/L (15-46); BLOOD UREA NITROGEN 87 mg/dl (7-20); CALCIUM 8.1 mg/dl (8.4-10.2); CARBON DIOXIDE 23 mmol/L (21-31); CHLORIDE 105 mmol/L (97-110); CREATININE 5.44 mg/dl (0.44-1.00); GLUCOSE 169 mg/dl (70-220); SODIUM 143 mmol/L (135-144); TOTAL PROTEIN 6.4 g/dl (6.1-8.1)
[2017-07-25 07:38] LABS: POTASSIUM 5.2 mmol/L (3.5-5.1)
[2017-07-25] MEDS: INSULIN ASPART [NOVOLOG] 3 ML PEN SC ×7 (09:00→20:19)
[2017-07-25] MEDS: INSULIN GLARGINE [LANtus] 3 ML PEN SC ×2 (09:00→20:35)
[2017-07-25] MEDS: LOSARTAN 25 MG TAB PO ×2 (09:00→20:17)
[2017-07-25] MEDS: METOPROLOL (XL) 50 MG TAB PO ×2 (09:00→20:34)
[2017-07-25] MEDS: COLLAGENASE 5 GM (UD JAR) TOP (09:00)
[2017-07-25] MEDS: METOCLOPRAMIDE 5 MG TAB PO ×3 (09:00→20:36)
[2017-07-25] MEDS: PROMETHAZINE 25 MG TAB PO (09:31)
[2017-07-25 09:57] LABS: IMMEDIATE SPIN CROSSMATCH 1 2
[2017-07-25] MEDS: HEPARIN 1000 UNITS/ML 10 ML INJ CATHETER (13:17)
[2017-07-25] MEDS: EPOETIN 10000 UNITS/1 ML INJ (ESRD) SC (17:27)
[2017-07-26] MEDS: DIPHENHYDRAMINE 50 MG INJ IV ×2 (00:08→23:36)
[2017-07-26] MEDS: ACCU-CHEK XX (02:00)
[2017-07-26] MEDS: PANTOPRAZOLE 40 MG INJ IV ×2 (06:00→17:15)
[2017-07-26] MEDS: LOSARTAN 25 MG TAB PO (07:38)
[2017-07-26] MEDS: METOCLOPRAMIDE 5 MG TAB PO ×3 (07:38→20:20)
[2017-07-26] MEDS: METOPROLOL (XL) 50 MG TAB PO (07:38)
[2017-07-26] MEDS: INSULIN ASPART [NOVOLOG] 3 ML PEN SC ×7 (07:55→20:14)
[2017-07-26] MEDS: INSULIN GLARGINE [LANtus] 3 ML PEN SC ×2 (08:00→20:28)
[2017-07-26] MEDS: COLLAGENASE 5 GM (UD JAR) TOP (09:00)
[2017-07-26 11:10] LABS: ADD MAN DIFF? NO
[2017-07-26 11:14] LABS: BASOPHILS % 0.4 % (0.0-2.0); EOSINOPHILS # 0.1 10^3/ul (0.0-0.5); EOSINOPHILS % 1.5 % (0.0-7.0); HEMATOCRIT 29.4 % (37.0-47.0); HEMOGLOBIN 9.4 g/dl (12.0-16.0); LYMPHOCYTES % 11.6 % (15.0-51.0); MEAN CORPUSCULAR HEMOGLOBIN 31.2 pg (29.0-33.0); MEAN CORPUSCULAR VOLUME 97.7 fl (82.0-101.0); MEAN PLATELET VOLUME 10.2 fl (7.4-10.4); MONOCYTE # 1.1 10^3/ul (0.3-0.9); MONOCYTES % 12.1 % (0.0-11.0); NEUTROPHIL # 6.6 10^3/ul (1.6-7.5); NEUTROPHILS % 73.7 % (39.0-77.0); NUCLEATED RED BLOOD CELLS% 0.3 /100WBC (0.0-0.0); PLATELET COUNT 227 10^3/UL (140-415); RED BLOOD COUNT 3.01 10^6/ul (4.20-5.40); RED CELL DISTRIBUTION WIDTH 21.1 % (11.5-14.5)
[2017-07-26 11:14] LABS: WHITE BLOOD COUNT 8.9 10^3/ul (4.8-10.8)
[2017-07-26 11:37] LABS: ALANINE AMINOTRANSFERASE 15 IU/L (13-69); ALBUMIN 2.9 g/dl (3.3-4.9); ALKALINE PHOSPHATASE 105 IU/L (42-121); ANION GAP 18 (8-16); ASPARTATE AMINO TRANSFERASE 29 IU/L (15-46); BILIRUBIN,INDIRECT 0.2 mg/dl (0-1.1); BILIRUBIN,TOTAL 0.2 mg/dl (0.2-1.3); BLOOD UREA NITROGEN 41 mg/dl (7-20); CALCIUM 8.1 mg/dl (8.4-10.2); CARBON DIOXIDE 28 mmol/L (21-31); CHLORIDE 104 mmol/L (97-110); CREATININE 4.05 mg/dl (0.44-1.00); GLUCOSE 95 mg/dl (70-220); POTASSIUM 4.2 mmol/L (3.5-5.1); SODIUM 146 mmol/L (135-144)
[2017-07-26] MEDS: PROPOFOL 20 ML (11:37)
[2017-07-26] MEDS: LOSARTAN 50 MG TAB PO (20:20)
[2017-07-26] MEDS: METOPROLOL (XL) 100 MG TAB PO (20:20)
[2017-07-27] MEDS: ACCU-CHEK XX (02:00)
[2017-07-27] MEDS: PANTOPRAZOLE 40 MG INJ IV ×2 (05:30→17:32)
[2017-07-27] MEDS: DIPHENHYDRAMINE 50 MG INJ IV ×2 (05:30→23:47)
[2017-07-27 07:14] LABS: ADD MAN DIFF? NO
[2017-07-27 07:20] LABS: BASOPHIL # 0.1 10^3/ul (0.0-0.1); BASOPHILS % 0.5 % (0.0-2.0); EOSINOPHILS # 0.2 10^3/ul (0.0-0.5); EOSINOPHILS % 1.8 % (0.0-7.0); HEMATOCRIT 29.3 % (37.0-47.0); HEMOGLOBIN 9.4 g/dl (12.0-16.0); LYMPHOCYTES # 1.2 10^3/ul (0.8-2.9); LYMPHOCYTES % 12.4 % (15.0-51.0); MEAN CORPUSCULAR HEMOGLOBIN 32.2 pg (29.0-33.0); MEAN CORPUSCULAR HGB CONC 32.1 g/dl (32.0-37.0); MEAN CORPUSCULAR VOLUME 100.3 fl (82.0-101.0); MEAN PLATELET VOLUME 9.8 fl (7.4-10.4); MONOCYTE # 0.9 10^3/ul (0.3-0.9); NEUTROPHIL # 6.9 10^3/ul (1.6-7.5); NEUTROPHILS % 74.5 % (39.0-77.0); PLATELET COUNT 228 10^3/UL (140-415); RED BLOOD COUNT 2.92 10^6/ul (4.20-5.40); RED CELL DISTRIBUTION WIDTH 20.5 % (11.5-14.5)
[2017-07-27 07:20] LABS: WHITE BLOOD COUNT 9.3 10^3/ul (4.8-10.8)
[2017-07-27 07:40] LABS: ANION GAP 17 (8-16); BLOOD UREA NITROGEN 56 mg/dl (7-20); CALCIUM 7.7 mg/dl (8.4-10.2); CARBON DIOXIDE 27 mmol/L (21-31); CHLORIDE 105 mmol/L (97-110); GLUCOSE 116 mg/dl (70-220); MAGNESIUM 2.1 mg/dl (1.7-2.5); PHOSPHORUS 5.1 mg/dl (2.5-4.9); POTASSIUM 4.8 mmol/L (3.5-5.1); SODIUM 144 mmol/L (135-144)
[2017-07-27] MEDS: INSULIN ASPART [NOVOLOG] 3 ML PEN SC ×7 (07:55→20:46)
[2017-07-27] MEDS: INSULIN GLARGINE [LANtus] 3 ML PEN SC ×2 (08:20→20:45)
[2017-07-27] MEDS: METOPROLOL (XL) 100 MG TAB PO ×2 (09:00→21:00)
[2017-07-27] MEDS: METOCLOPRAMIDE 5 MG TAB PO ×3 (09:00→21:00)
[2017-07-27] MEDS: COLLAGENASE 5 GM (UD JAR) TOP (09:00)
[2017-07-27] MEDS: LOSARTAN 50 MG TAB PO ×2 (09:00→21:00)
[2017-07-27] MEDS: HEPARIN 1000 UNITS/ML 10 ML INJ CATHETER (13:35)
[2017-07-27] MEDS ORDERED: ACETAMINOPHEN 1000MG/100ML IV 100 ML (16:16)
[2017-07-27] MEDS ORDERED: FENTAnyl 50 MCG/ML VIAL (16:16)
[2017-07-27] MEDS ORDERED: MIDAZOLAM 1 MG/ML 2 ML INJ (16:16)
[2017-07-27] MEDS ORDERED: KETOROLAC 30 MG INJ (16:16)
[2017-07-27] MEDS ORDERED: CEFAZOLIN 1 GM INJ (16:16)
[2017-07-27] MEDS: EPOETIN 10000 UNITS/1 ML INJ (ESRD) SC (17:19)
[2017-07-27] MEDS: GENTAMICIN 70 MG in SOD CHLORIDE 0.9% 50 ML IVPB (17:20)
[2017-07-27] MEDS: SUCRALFATE 1 GM TAB PO (21:00)
[2017-07-28] MEDS: DEXTROSE 50% 50 ML SYRINGE IV (02:40)
[2017-07-28] MEDS: ACCU-CHEK XX (02:46)
[2017-07-28] MEDS: PANTOPRAZOLE 40 MG INJ IV ×2 (06:00→18:00)
[2017-07-28 07:15] LABS: ADD MAN DIFF? NO
[2017-07-28 07:18] LABS: BASOPHIL # 0.1 10^3/ul (0.0-0.1); BASOPHILS % 0.6 % (0.0-2.0); EOSINOPHILS # 0.2 10^3/ul (0.0-0.5); EOSINOPHILS % 1.9 % (0.0-7.0); HEMATOCRIT 29.6 % (37.0-47.0); HEMOGLOBIN 9.4 g/dl (12.0-16.0); LYMPHOCYTES % 11.9 % (15.0-51.0); MEAN CORPUSCULAR HEMOGLOBIN 31.9 pg (29.0-33.0); MEAN CORPUSCULAR HGB CONC 31.8 g/dl (32.0-37.0); MEAN CORPUSCULAR VOLUME 100.3 fl (82.0-101.0); MEAN PLATELET VOLUME 10.1 fl (7.4-10.4); MONOCYTES % 12.7 % (0.0-11.0); NEUTROPHIL # 5.9 10^3/ul (1.6-7.5); NEUTROPHILS % 72.5 % (39.0-77.0); PLATELET COUNT 247 10^3/UL (140-415); RED BLOOD COUNT 2.95 10^6/ul (4.20-5.40); RED CELL DISTRIBUTION WIDTH 20.5 % (11.5-14.5)
[2017-07-28 07:18] LABS: WHITE BLOOD COUNT 8.1 10^3/ul (4.8-10.8)
[2017-07-28 07:45] LABS: ANION GAP 13 (8-16); BLOOD UREA NITROGEN 29 mg/dl (7-20); CARBON DIOXIDE 28 mmol/L (21-31); CHLORIDE 104 mmol/L (97-110); GLUCOSE 79 mg/dl (70-220); PHOSPHORUS 4.3 mg/dl (2.5-4.9); SODIUM 141 mmol/L (135-144)
[2017-07-28] MEDS: INSULIN ASPART [NOVOLOG] 3 ML PEN SC ×7 (07:55→21:00)
[2017-07-28] MEDS: INSULIN GLARGINE [LANtus] 3 ML PEN SC ×2 (08:00→21:08)
[2017-07-28] MEDS: COLLAGENASE 5 GM (UD JAR) TOP (09:00)
[2017-07-28] MEDS: SUCRALFATE 1 GM TAB PO ×2 (09:00→21:00)
[2017-07-28] MEDS: METOCLOPRAMIDE 5 MG TAB PO ×3 (09:00→21:00)
[2017-07-28] MEDS: METOPROLOL (XL) 100 MG TAB PO ×2 (09:00→21:00)
[2017-07-28] MEDS: LOSARTAN 50 MG TAB PO ×2 (09:00→21:00)
[2017-07-28 14:48] LABS: ADD MAN DIFF? NO
[2017-07-28 14:52] LABS: BASOPHIL # 0.1 10^3/ul (0.0-0.1); BASOPHILS % 0.6 % (0.0-2.0); EOSINOPHILS # 0.1 10^3/ul (0.0-0.5); EOSINOPHILS % 1.3 % (0.0-7.0); HEMATOCRIT 33.6 % (37.0-47.0); HEMOGLOBIN 10.6 g/dl (12.0-16.0); LYMPHOCYTES # 0.8 10^3/ul (0.8-2.9); LYMPHOCYTES % 9.8 % (15.0-51.0); MEAN CORPUSCULAR HEMOGLOBIN 32.1 pg (29.0-33.0); MEAN CORPUSCULAR HGB CONC 31.5 g/dl (32.0-37.0); MEAN CORPUSCULAR VOLUME 101.8 fl (82.0-101.0); MEAN PLATELET VOLUME 10.1 fl (7.4-10.4); MONOCYTE # 0.8 10^3/ul (0.3-0.9); MONOCYTES % 9.3 % (0.0-11.0); NEUTROPHIL # 6.7 10^3/ul (1.6-7.5); NEUTROPHILS % 78.6 % (39.0-77.0); PLATELET COUNT 272 10^3/UL (140-415); RED CELL DISTRIBUTION WIDTH 21.1 % (11.5-14.5)
[2017-07-28 14:52] LABS: WHITE BLOOD COUNT 8.5 10^3/ul (4.8-10.8)
[2017-07-28 15:06] LABS: LACTIC ACID 1.4 mmol/L (0.5-2.0)
[2017-07-28 15:07] LABS: ANION GAP 16 (8-16); BLOOD UREA NITROGEN 33 mg/dl (7-20); CALCIUM 8.2 mg/dl (8.4-10.2); CARBON DIOXIDE 27 mmol/L (21-31); CHLORIDE 103 mmol/L (97-110); GLUCOSE 82 mg/dl (70-220); POTASSIUM 4.5 mmol/L (3.5-5.1); SODIUM 141 mmol/L (135-144)
[2017-07-28 15:28] LABS: TROPONIN-I < 0.010 ng/ml (0.000-0.120)
[2017-07-29] MEDS: ACCU-CHEK XX (02:40)
[2017-07-29] MEDS: PANTOPRAZOLE 40 MG INJ IV (06:00)
[2017-07-29] MEDS: LOSARTAN 50 MG TAB PO (09:00)
[2017-07-29] MEDS: COLLAGENASE 5 GM (UD JAR) TOP (09:00)
[2017-07-29] MEDS: SUCRALFATE 1 GM TAB PO (09:00)
[2017-07-29] MEDS: INSULIN ASPART [NOVOLOG] 3 ML PEN SC ×4 (09:02→13:03)
[2017-07-29] MEDS: INSULIN GLARGINE [LANtus] 3 ML PEN SC (09:04)
[2017-07-29] MEDS: METOPROLOL (XL) 100 MG TAB PO (09:07)
[2017-07-29] MEDS: METOCLOPRAMIDE 5 MG TAB PO ×2 (09:07→12:25)
== END 2017-07-29 14:55 | disposition home health service (06) | DRG 981 ==
LOC: E/R 23:23 → TEL 07-18 03:42
PROC: 0KBT0ZZ Excision of Left Lower Leg Muscle, Open Approach (ICD-10-PCS; principal; 2017-07-24 15:30)
PROC: 5A1D70Z Performance of Urinary Filtration, Intermittent, Less than 6 Hours Per Day (ICD-10-PCS; 2017-07-24 17:36)
PROC: 30233N1 Transfusion of Nonautologous Red Blood Cells into Peripheral Vein, Percutaneous Approach (ICD-10-PCS; 2017-07-24 17:36)
PROC: 0DB68ZX Excision of Stomach, Via Natural or Artificial Opening Endoscopic, Diagnostic (ICD-10-PCS; 2017-07-24 17:36)
DX: I13.2 Hypertensive heart and chronic kidney disease with heart failure and with stage 5 chronic kidney disease, or end stage renal disease (principal); N18.6 End stage renal disease; I50.23 Acute on chronic systolic (congestive) heart failure; K25.0 Acute gastric ulcer with hemorrhage; K29.71 Gastritis, unspecified, with bleeding; L03.116 Cellulitis of left lower limb; L02.416 Cutaneous abscess of left lower limb; R65.10 Systemic inflammatory response syndrome (SIRS) of non-infectious origin without acute organ dysfunction; E87.2 Acidosis; D62 Acute posthemorrhagic anemia; L97.822 Non-pressure chronic ulcer of other part of left lower leg with fat layer exposed; L97.823 Non-pressure chronic ulcer of other part of left lower leg with necrosis of muscle; D63.1 Anemia in chronic kidney disease; E78.5 Hyperlipidemia, unspecified; E10.22 Type 1 diabetes mellitus with diabetic chronic kidney disease; E10.622 Type 1 diabetes mellitus with other skin ulcer; E10.3599 Type 1 diabetes mellitus with proliferative diabetic retinopathy without macular edema, unspecified eye; E10.42 Type 1 diabetes mellitus with diabetic polyneuropathy; E10.43 Type 1 diabetes mellitus with diabetic autonomic (poly)neuropathy; E10.65 Type 1 diabetes mellitus with hyperglycemia; E10.59 Type 1 diabetes mellitus with other circulatory complications; I70.248 Atherosclerosis of native arteries of left leg with ulceration of other part of lower leg; I70.201 Unspecified atherosclerosis of native arteries of extremities, right leg; I42.9 Cardiomyopathy, unspecified; I34.0 Nonrheumatic mitral (valve) insufficiency; K31.84 Gastroparesis; L29.9 Pruritus, unspecified; B96.5 Pseudomonas (aeruginosa) (mallei) (pseudomallei) as the cause of diseases classified elsewhere; Z96.81 Presence of artificial skin; Z99.2 Dependence on renal dialysis; Z79.4 Long term (current) use of insulin
CPT/HCPCS: 36415; 36430; 70551; 71045; 78452; 80048; 80053; 82270; 82550; 82553; 82728; 82962; 83036; 83540; 83605; 83735; 83880; 84100; 84484; 85014; 85018; 85025; 85610; 85730; 86850; 86900; 86901; 86920; 87040; 87070; 87340; 88305; 88312; 90935; 93005; 93017; 93923; 96372; 96374; 99285-25

== ENCOUNTER 2017-08-18 20:16 | Inpatient (IN) | payer MEDICARE, MEDICAID ==
[2017-08-18] MEDS ORDERED: LIDOCAINE 4% CR (21:48)
[2017-08-18 22:14] LABS: WHITE BLOOD COUNT 9.6 10^3/ul (4.8-10.8)
[2017-08-18 22:14] LABS: ABNORMAL IP MESSAGE 1; HEMATOCRIT 16.8 % (37.0-47.0); MEAN CORPUSCULAR HEMOGLOBIN 33.8 pg (29.0-33.0); MEAN CORPUSCULAR VOLUME 109.1 fl (82.0-101.0); MEAN PLATELET VOLUME 10.7 fl (7.4-10.4); NUCLEATED RED BLOOD CELLS% 0.5 /100WBC (0.0-0.0); PLATELET COUNT 173 10^3/UL (140-415); RED BLOOD COUNT 1.54 10^6/ul (4.20-5.40); RED CELL DISTRIBUTION WIDTH 19.5 % (11.5-14.5)
[2017-08-18 22:26] LABS: POSITIVE DIFF @See below
[2017-08-18 22:38] LABS: ADD MAN DIFF? YES
[2017-08-18 22:46] LABS: INR 1.42; PROTIME 17.6 Sec (11.9-14.9); PT RATIO 1.4
[2017-08-18 22:47] LABS: PARTIAL THROMBOPLASTIN TIME 36.2 Sec (25.0-35.0)
[2017-08-18 22:48] LABS: EOSINOPHILS % 0.3 % (0.0-7.0); HEMOGLOBIN 5.2 g/dl (12.0-16.0); LYMPHOCYTES % 11.3 % (15.0-51.0); MONOCYTES % 9.6 % (0.0-11.0); NEUTROPHILS % 77.8 % (39.0-77.0)
[2017-08-18 22:49] LABS: BASOPHILS % 0.3 % (0.0-2.0); LYMPHOCYTES #M 1.1 10^3/ul (0.8-2.9); MONOCYTE #M 0.9 10^3/ul (0.3-0.9); SEG NEUT #M 7.4 10^3/ul (1.7-7.5)
[2017-08-18 22:50] LABS: ALANINE AMINOTRANSFERASE 17 IU/L (13-69); ALBUMIN 2.6 g/dl (3.3-4.9); ALBUMIN/GLOBULIN RATIO 0.78; ALKALINE PHOSPHATASE 82 IU/L (42-121); ANION GAP 26 (8-16); ASPARTATE AMINO TRANSFERASE 20 IU/L (15-46); BLOOD UREA NITROGEN 61 mg/dl (7-20); CALCIUM 8.5 mg/dl (8.4-10.2); CARBON DIOXIDE 20 mmol/L (21-31); CHLORIDE 102 mmol/L (97-110); CREATININE 6.21 mg/dl (0.44-1.00); GLUCOSE 232 mg/dl (70-220); LIPASE 23 U/L (23-300); POTASSIUM 5.6 mmol/L (3.5-5.1); SODIUM 142 mmol/L (135-144); TOTAL PROTEIN 5.9 g/dl (6.1-8.1)
[2017-08-18 23:19] LABS: IMMEDIATE SPIN CROSSMATCH 1 2
[2017-08-18] MEDS ORDERED: DIPHENHYDRAMINE 50 MG INJ (23:48)
[2017-08-19 01:00] LABS: OCCULT BLOOD STOOL POSITIVE (NEGATIVE)
[2017-08-19] MEDS: ONDANSETRON 4 MG INJ IV (01:05)
[2017-08-19] MEDS: morphine 4 MG/ML VIAL IV (01:06)
[2017-08-19] MEDS: DIPHENHYDRAMINE 50 MG INJ IV ×3 (01:11→23:49)
[2017-08-19] MEDS: LIDOCAINE 4% CR TOP (01:11)
[2017-08-19] MEDS ORDERED: ONDANSETRON 4 MG INJ IV (02:30)
[2017-08-19] MEDS ORDERED: ACETAMINOPHEN 325 MG TAB PO ×2 (02:30→06:30)
[2017-08-19] MEDS: PANTOPRAZOLE IV 80 MG in SOD CHLORIDE 0.9% 100 ML IVPB (06:01)
[2017-08-19] MEDS ORDERED: morphine 2 MG INJ IV (06:30)
[2017-08-19] MEDS ORDERED: NACL 0.9% 3 ML SYG IV (06:30)
[2017-08-19] MEDS ORDERED: GLUCOSE GEL 15 GRAM TUBE PO ×2 (08:00)
[2017-08-19] MEDS ORDERED: GLUCAGON 1 MG INJ IM (08:00)
[2017-08-19] MEDS ORDERED: GLUCOSE GEL 15 GRAM TUBE BUCCAL (08:00)
[2017-08-19 13:58] LABS: HEPATITIS B SURFACE ANTIGEN NEGATIVE (NEGATIVE)
[2017-08-19] MEDS ORDERED: HEPARIN 1000 UNITS/ML 10 ML INJ (14:00)
[2017-08-19] MEDS: HEPARIN 1000 UNITS/ML 10 ML INJ CATHETER (14:45)
[2017-08-19] MEDS: DEXTROSE 5%-0.45% NACL 1,000 ML IV (14:58)
[2017-08-19] MEDS: SOD CHLORIDE 0.9% 1,000 ML IV ×2 (15:00→16:18)
[2017-08-19] MEDS: INSULIN ASPART [NOVOLOG] 3 ML PEN SC ×4 (15:20→21:00)
[2017-08-19] MEDS: PANTOPRAZOLE IV 80 MG in SOD CHLORIDE 0.9% 100 ML IV (16:18)
[2017-08-19] MEDS ORDERED: morphine LIQ (10 MG/5 ML) CUP PO (17:30)
[2017-08-19] MEDS: INSULIN GLARGINE [LANtus] 3 ML PEN SC (20:52)
[2017-08-20] MEDS: ACCU-CHEK XX (02:08)
[2017-08-20] MEDS: SOD CHLORIDE 0.9% 1,000 ML IV (02:29)
[2017-08-20] MEDS: INSULIN ASPART [NOVOLOG] 3 ML PEN SC ×4 (07:55→20:59)
[2017-08-20 08:04] LABS: ADD MAN DIFF? NO
[2017-08-20 08:08] LABS: ABNORMAL IP MESSAGE 1; BASOPHILS % 0.3 % (0.0-2.0); EOSINOPHILS # 0.1 10^3/ul (0.0-0.5); EOSINOPHILS % 0.8 % (0.0-7.0); HEMATOCRIT 25.2 % (37.0-47.0); HEMOGLOBIN 8.2 g/dl (12.0-16.0); LYMPHOCYTES # 1.4 10^3/ul (0.8-2.9); LYMPHOCYTES % 14.5 % (15.0-51.0); MEAN CORPUSCULAR HEMOGLOBIN 31.3 pg (29.0-33.0); MEAN CORPUSCULAR HGB CONC 32.5 g/dl (32.0-37.0); MEAN CORPUSCULAR VOLUME 96.2 fl (82.0-101.0); MEAN PLATELET VOLUME 11.1 fl (7.4-10.4); MONOCYTE # 1.3 10^3/ul (0.3-0.9); MONOCYTES % 13.5 % (0.0-11.0); NEUTROPHIL # 6.7 10^3/ul (1.6-7.5); NEUTROPHILS % 70.5 % (39.0-77.0); NUCLEATED RED BLOOD CELLS # 0.2 10^3/ul (0.0-0.0); NUCLEATED RED BLOOD CELLS% 2.3 /100WBC (0.0-0.0); PLATELET COUNT 140 10^3/UL (140-415); RED BLOOD COUNT 2.62 10^6/ul (4.20-5.40); RED CELL DISTRIBUTION WIDTH 22.9 % (11.5-14.5)
[2017-08-20 08:08] LABS: WHITE BLOOD COUNT 9.5 10^3/ul (4.8-10.8)
[2017-08-20 08:09] LABS: POSITIVE DIFF @See below
[2017-08-20] MEDS: BISACODYL (EC) 5 MG TAB PO ×2 (08:33→17:01)
[2017-08-20 08:37] LABS: ANION GAP 20 (8-16); BLOOD UREA NITROGEN 47 mg/dl (7-20); CARBON DIOXIDE 26 mmol/L (21-31); CHLORIDE 101 mmol/L (97-110); CREATININE 4.88 mg/dl (0.44-1.00); GLUCOSE 122 mg/dl (70-220); PHOSPHORUS 6.4 mg/dl (2.5-4.9); POTASSIUM 5.1 mmol/L (3.5-5.1); SODIUM 142 mmol/L (135-144)
[2017-08-20] MEDS ORDERED: PROCHLORPERAZINE 10 MG INJ IV (09:00)
[2017-08-20] MEDS: MAGNESIUM CITRATE 300 ML BTL PO (10:19)
[2017-08-20] MEDS: POLYETHYLENE GLYCOL 3350 119 GM POWDER PO ×2 (10:20→16:00)
[2017-08-20 12:26] LABS: ADD MAN DIFF? NO
[2017-08-20 12:40] LABS: ABNORMAL IP MESSAGE 1; BASOPHIL # 0.1 10^3/ul (0.0-0.1); BASOPHILS % 0.4 % (0.0-2.0); EOSINOPHILS # 0.1 10^3/ul (0.0-0.5); EOSINOPHILS % 0.8 % (0.0-7.0); HEMATOCRIT 27.7 % (37.0-47.0); HEMOGLOBIN 9.1 g/dl (12.0-16.0); LYMPHOCYTES # 1.3 10^3/ul (0.8-2.9); LYMPHOCYTES % 10.8 % (15.0-51.0); MEAN CORPUSCULAR HEMOGLOBIN 31.9 pg (29.0-33.0); MEAN CORPUSCULAR HGB CONC 32.9 g/dl (32.0-37.0); MEAN CORPUSCULAR VOLUME 97.2 fl (82.0-101.0); MEAN PLATELET VOLUME 11.2 fl (7.4-10.4); MONOCYTE # 1.9 10^3/ul (0.3-0.9); MONOCYTES % 15.5 % (0.0-11.0); NEUTROPHIL # 8.6 10^3/ul (1.6-7.5); NEUTROPHILS % 72.1 % (39.0-77.0); NUCLEATED RED BLOOD CELLS # 0.2 10^3/ul (0.0-0.0); PLATELET COUNT 142 10^3/UL (140-415); RED BLOOD COUNT 2.85 10^6/ul (4.20-5.40); RED CELL DISTRIBUTION WIDTH 23.1 % (11.5-14.5)
[2017-08-20 12:42] LABS: POSITIVE DIFF @See below
[2017-08-20 16:57] LABS: ADD MAN DIFF? NO
[2017-08-20 16:59] LABS: ABNORMAL IP MESSAGE 1; BASOPHIL # 0.1 10^3/ul (0.0-0.1); BASOPHILS % 0.6 % (0.0-2.0); EOSINOPHILS # 0.1 10^3/ul (0.0-0.5); EOSINOPHILS % 0.7 % (0.0-7.0); HEMATOCRIT 26.1 % (37.0-47.0); HEMOGLOBIN 8.4 g/dl (12.0-16.0); LYMPHOCYTES # 1.4 10^3/ul (0.8-2.9); LYMPHOCYTES % 12.8 % (15.0-51.0); MEAN CORPUSCULAR HEMOGLOBIN 31.8 pg (29.0-33.0); MEAN CORPUSCULAR HGB CONC 32.2 g/dl (32.0-37.0); MEAN CORPUSCULAR VOLUME 98.9 fl (82.0-101.0); MEAN PLATELET VOLUME 10.7 fl (7.4-10.4); MONOCYTE # 1.3 10^3/ul (0.3-0.9); MONOCYTES % 11.7 % (0.0-11.0); NEUTROPHILS % 73.6 % (39.0-77.0); NUCLEATED RED BLOOD CELLS # 0.2 10^3/ul (0.0-0.0); NUCLEATED RED BLOOD CELLS% 1.7 /100WBC (0.0-0.0); PLATELET COUNT 151 10^3/UL (140-415); RED BLOOD COUNT 2.64 10^6/ul (4.20-5.40); RED CELL DISTRIBUTION WIDTH 23.8 % (11.5-14.5)
[2017-08-20 16:59] LABS: WHITE BLOOD COUNT 10.9 10^3/ul (4.8-10.8)
[2017-08-20 17:01] LABS: POSITIVE DIFF @See below
[2017-08-20] MEDS: DEXTROSE 5%-0.9% NACL 1,000 ML IV (20:58)
[2017-08-20] MEDS: INSULIN GLARGINE [LANtus] 3 ML PEN SC (20:58)
[2017-08-20 23:12] LABS: ADD MAN DIFF? NO
[2017-08-20 23:14] LABS: WHITE BLOOD COUNT 9.6 10^3/ul (4.8-10.8)
[2017-08-20 23:14] LABS: ABNORMAL IP MESSAGE 1; BASOPHILS % 0.4 % (0.0-2.0); EOSINOPHILS # 0.1 10^3/ul (0.0-0.5); HEMATOCRIT 25.9 % (37.0-47.0); HEMOGLOBIN 8.3 g/dl (12.0-16.0); LYMPHOCYTES # 1.3 10^3/ul (0.8-2.9); LYMPHOCYTES % 13.7 % (15.0-51.0); MEAN CORPUSCULAR HEMOGLOBIN 31.9 pg (29.0-33.0); MEAN CORPUSCULAR VOLUME 99.6 fl (82.0-101.0); MONOCYTE # 1.2 10^3/ul (0.3-0.9); MONOCYTES % 12.4 % (0.0-11.0); NEUTROPHIL # 6.8 10^3/ul (1.6-7.5); NEUTROPHILS % 71.7 % (39.0-77.0); NUCLEATED RED BLOOD CELLS # 0.2 10^3/ul (0.0-0.0); PLATELET COUNT 158 10^3/UL (140-415); RED CELL DISTRIBUTION WIDTH 23.2 % (11.5-14.5)
[2017-08-20 23:19] LABS: POSITIVE DIFF @See below
[2017-08-21] MEDS: ACCU-CHEK XX (02:00)
[2017-08-21 07:48] LABS: ADD MAN DIFF? NO
[2017-08-21 07:52] LABS: WHITE BLOOD COUNT 8.4 10^3/ul (4.8-10.8)
[2017-08-21 07:52] LABS: ABNORMAL IP MESSAGE 1; BASOPHILS % 0.5 % (0.0-2.0); EOSINOPHILS # 0.1 10^3/ul (0.0-0.5); EOSINOPHILS % 1.4 % (0.0-7.0); HEMATOCRIT 23.9 % (37.0-47.0); HEMOGLOBIN 7.5 g/dl (12.0-16.0); LYMPHOCYTES % 11.5 % (15.0-51.0); MEAN CORPUSCULAR HEMOGLOBIN 31.4 pg (29.0-33.0); MEAN CORPUSCULAR HGB CONC 31.4 g/dl (32.0-37.0); MEAN PLATELET VOLUME 11.1 fl (7.4-10.4); NEUTROPHIL # 6.2 10^3/ul (1.6-7.5); NUCLEATED RED BLOOD CELLS # 0.1 10^3/ul (0.0-0.0); NUCLEATED RED BLOOD CELLS% 1.3 /100WBC (0.0-0.0); PLATELET COUNT 144 10^3/UL (140-415); RED BLOOD COUNT 2.39 10^6/ul (4.20-5.40); RED CELL DISTRIBUTION WIDTH 23.2 % (11.5-14.5)
[2017-08-21] MEDS: INSULIN ASPART [NOVOLOG] 3 ML PEN SC ×4 (07:55→21:00)
[2017-08-21 07:57] LABS: POSITIVE DIFF @See below
[2017-08-21 08:22] LABS: ANION GAP 16 (8-16); BLOOD UREA NITROGEN 51 mg/dl (7-20); CALCIUM 7.8 mg/dl (8.4-10.2); CARBON DIOXIDE 25 mmol/L (21-31); CHLORIDE 107 mmol/L (97-110); CREATININE 5.95 mg/dl (0.44-1.00); GLUCOSE 117 mg/dl (70-220); MAGNESIUM 2.4 mg/dl (1.7-2.5); PHOSPHORUS 6.6 mg/dl (2.5-4.9); POTASSIUM 4.6 mmol/L (3.5-5.1); SODIUM 143 mmol/L (135-144)
[2017-08-21] MEDS ORDERED: EPOETIN 10000 UNITS/1 ML INJ (ESRD) SC (08:30)
[2017-08-21] MEDS: EPOETIN 10000 UNITS/1 ML INJ (ESRD) SC (10:17)
[2017-08-21] MEDS: DEXTROSE 5%-0.9% NACL 1,000 ML IV ×2 (10:20→23:40)
[2017-08-21] MEDS: morphine 2 MG INJ IV (12:46)
[2017-08-21] MEDS: ONDANSETRON 4 MG INJ IV (12:47)
[2017-08-21] MEDS: ACETIC ACID 0.25% IRR 1,000 ML BTL IRR (13:01)
[2017-08-21] MEDS: LIDOCAINE 2% (SDV) 5 ML INJ (15:33)
[2017-08-21] MEDS: PROPOFOL 60 ML (15:33)
[2017-08-21] MEDS: EPHEDrine SULFATE 50 MG/5 ML SYG (15:56)
[2017-08-21] MEDS: SUCRALFATE 1 GM TAB PO ×2 (17:35→21:36)
[2017-08-21] MEDS: PROMETHAZINE (1.25 MG/ML) 5 ML CUP PO (17:56)
[2017-08-21 18:35] LABS: HEMATOCRIT 27.2 % (37.0-47.0); HEMOGLOBIN 8.4 g/dl (12.0-16.0)
[2017-08-21] MEDS: INSULIN GLARGINE [LANtus] 3 ML PEN SC (21:41)
[2017-08-22] MEDS: morphine 2 MG INJ IV ×3 (00:13→18:15)
[2017-08-22] MEDS: ONDANSETRON 4 MG INJ IV ×3 (00:13→18:21)
[2017-08-22] MEDS: ACCU-CHEK XX (02:24)
[2017-08-22] MEDS: DIPHENHYDRAMINE 25 MG CAP PO (04:05)
[2017-08-22 07:39] LABS: ADD MAN DIFF? NO
[2017-08-22 07:42] LABS: WHITE BLOOD COUNT 8.9 10^3/ul (4.8-10.8)
[2017-08-22 07:42] LABS: ABNORMAL IP MESSAGE 1; BASOPHILS % 0.3 % (0.0-2.0); EOSINOPHILS # 0.1 10^3/ul (0.0-0.5); EOSINOPHILS % 1.6 % (0.0-7.0); HEMATOCRIT 28.7 % (37.0-47.0); HEMOGLOBIN 8.7 g/dl (12.0-16.0); LYMPHOCYTES # 0.8 10^3/ul (0.8-2.9); LYMPHOCYTES % 8.9 % (15.0-51.0); MEAN CORPUSCULAR HEMOGLOBIN 31.6 pg (29.0-33.0); MEAN CORPUSCULAR HGB CONC 30.3 g/dl (32.0-37.0); MEAN CORPUSCULAR VOLUME 104.4 fl (82.0-101.0); MEAN PLATELET VOLUME 10.8 fl (7.4-10.4); MONOCYTES % 11.2 % (0.0-11.0); NEUTROPHIL # 6.9 10^3/ul (1.6-7.5); NEUTROPHILS % 77.5 % (39.0-77.0); NUCLEATED RED BLOOD CELLS% 0.5 /100WBC (0.0-0.0); PLATELET COUNT 147 10^3/UL (140-415); RED BLOOD COUNT 2.75 10^6/ul (4.20-5.40); RED CELL DISTRIBUTION WIDTH 23.7 % (11.5-14.5)
[2017-08-22 07:51] LABS: POSITIVE DIFF @See below
[2017-08-22] MEDS: INSULIN ASPART [NOVOLOG] 3 ML PEN SC ×4 (07:55→20:45)
[2017-08-22] MEDS: SUCRALFATE 1 GM TAB PO ×4 (08:10→20:45)
[2017-08-22] MEDS: ACETIC ACID 0.25% IRR 1,000 ML BTL IRR (08:10)
[2017-08-22 08:13] LABS: ANION GAP 23 (8-16); BLOOD UREA NITROGEN 53 mg/dl (7-20); CALCIUM 7.7 mg/dl (8.4-10.2); CARBON DIOXIDE 19 mmol/L (21-31); CHLORIDE 103 mmol/L (97-110); CREATININE 6.85 mg/dl (0.44-1.00); GLUCOSE 161 mg/dl (70-220); MAGNESIUM 2.5 mg/dl (1.7-2.5); PHOSPHORUS 7.4 mg/dl (2.5-4.9); POTASSIUM 4.4 mmol/L (3.5-5.1); SODIUM 141 mmol/L (135-144)
[2017-08-22] MEDS: LIDOCAINE 1% (MPF) 5 ML VIAL SC (10:50)
[2017-08-22] MEDS: SEVELAMER CARBONATE 800 MG TABLET PO ×2 (12:08→18:16)
[2017-08-22] MEDS: HEPARIN 1000 UNITS/ML 10 ML INJ CATHETER (18:03)
[2017-08-22] MEDS: EPOETIN 10000 UNITS/1 ML INJ (ESRD) SC (18:18)
[2017-08-22] MEDS: INSULIN GLARGINE [LANtus] 3 ML PEN SC (20:51)
[2017-08-23] MEDS: ONDANSETRON 4 MG INJ IV ×4 (00:14→23:44)
[2017-08-23] MEDS: morphine 2 MG INJ IV ×4 (00:15→23:41)
[2017-08-23] MEDS: DIPHENHYDRAMINE 50 MG INJ IV (01:13)
[2017-08-23] MEDS: ACCU-CHEK XX (02:29)
[2017-08-23] MEDS: INSULIN ASPART [NOVOLOG] 3 ML PEN SC ×4 (07:55→21:00)
[2017-08-23] MEDS: SUCRALFATE 1 GM TAB PO ×4 (08:05→21:32)
[2017-08-23] MEDS: SEVELAMER CARBONATE 800 MG TABLET PO ×2 (08:05→11:50)
[2017-08-23] MEDS: ACETIC ACID 0.25% IRR 1,000 ML BTL IRR (08:06)
[2017-08-23 08:48] LABS: ADD MAN DIFF? NO
[2017-08-23 09:00] LABS: WHITE BLOOD COUNT 9.2 10^3/ul (4.8-10.8)
[2017-08-23 09:00] LABS: ABNORMAL IP MESSAGE 1; BASOPHILS % 0.3 % (0.0-2.0); EOSINOPHILS # 0.1 10^3/ul (0.0-0.5); EOSINOPHILS % 1.4 % (0.0-7.0); HEMATOCRIT 24.1 % (37.0-47.0); HEMOGLOBIN 7.5 g/dl (12.0-16.0); LYMPHOCYTES # 0.8 10^3/ul (0.8-2.9); LYMPHOCYTES % 8.2 % (15.0-51.0); MEAN CORPUSCULAR HEMOGLOBIN 31.6 pg (29.0-33.0); MEAN CORPUSCULAR HGB CONC 31.1 g/dl (32.0-37.0); MEAN CORPUSCULAR VOLUME 101.7 fl (82.0-101.0); MONOCYTE # 1.1 10^3/ul (0.3-0.9); MONOCYTES % 12.2 % (0.0-11.0); NEUTROPHIL # 7.1 10^3/ul (1.6-7.5); NEUTROPHILS % 77.4 % (39.0-77.0); NUCLEATED RED BLOOD CELLS% 0.2 /100WBC (0.0-0.0); PLATELET COUNT 145 10^3/UL (140-415); RED BLOOD COUNT 2.37 10^6/ul (4.20-5.40); RED CELL DISTRIBUTION WIDTH 22.9 % (11.5-14.5)
[2017-08-23 09:01] LABS: POSITIVE DIFF @See below
[2017-08-23] MEDS: COLLAGENASE 5 GM (UD JAR) TOP (10:22)
[2017-08-23 12:34] LABS: HEMATOCRIT 25.5 % (37.0-47.0)
[2017-08-23] MEDS: PANTOPRAZOLE (EC) 40 MG TAB PO (17:32)
[2017-08-23] MEDS: SEVELAMER CARBONATE 0.8 GM PKT PO (17:32)
[2017-08-23] MEDS ORDERED: PANTOPRAZOLE 40 MG INJ IV (18:00)
[2017-08-23] MEDS: INSULIN GLARGINE [LANtus] 3 ML PEN SC (21:35)
[2017-08-24] MEDS: ACCU-CHEK XX (02:42)
[2017-08-24] MEDS: PANTOPRAZOLE (EC) 40 MG TAB PO ×2 (06:08→17:41)
[2017-08-24] MEDS: INSULIN ASPART [NOVOLOG] 3 ML PEN SC ×4 (07:55→21:00)
[2017-08-24] MEDS: SEVELAMER CARBONATE 2.4 GM PKT PO ×3 (07:55→17:55)
[2017-08-24 08:52] LABS: ADD MAN DIFF? NO
[2017-08-24] MEDS: COLLAGENASE 5 GM (UD JAR) TOP (09:00)
[2017-08-24] MEDS: HEPARIN 5,000 UNIT/0.5 ML VIAL SC (09:00)
[2017-08-24] MEDS: SUCRALFATE 1 GM TAB PO ×4 (09:00→23:55)
[2017-08-24 09:09] LABS: BASOPHILS % 0.4 % (0.0-2.0); EOSINOPHILS # 0.2 10^3/ul (0.0-0.5); HEMATOCRIT 25.6 % (37.0-47.0); LYMPHOCYTES # 0.9 10^3/ul (0.8-2.9); LYMPHOCYTES % 9.7 % (15.0-51.0); MEAN CORPUSCULAR HEMOGLOBIN 31.6 pg (29.0-33.0); MEAN CORPUSCULAR HGB CONC 31.3 g/dl (32.0-37.0); MEAN CORPUSCULAR VOLUME 101.2 fl (82.0-101.0); MEAN PLATELET VOLUME 10.8 fl (7.4-10.4); MONOCYTE # 1.2 10^3/ul (0.3-0.9); MONOCYTES % 12.7 % (0.0-11.0); NEUTROPHIL # 6.8 10^3/ul (1.6-7.5); NEUTROPHILS % 74.5 % (39.0-77.0); PLATELET COUNT 175 10^3/UL (140-415); RED BLOOD COUNT 2.53 10^6/ul (4.20-5.40)
[2017-08-24 09:09] LABS: WHITE BLOOD COUNT 9.1 10^3/ul (4.8-10.8)
[2017-08-24] MEDS: morphine 2 MG INJ IV ×3 (10:06→23:53)
[2017-08-24] MEDS: ONDANSETRON 4 MG INJ IV ×4 (10:06→23:53)
[2017-08-24] MEDS: ACETIC ACID 0.25% IRR 1,000 ML BTL IRR (10:07)
[2017-08-24] MEDS: EPOETIN 10000 UNITS/1 ML INJ (ESRD) SC (17:00)
[2017-08-24] MEDS: DEXTROSE 50% 50 ML SYRINGE IV ×2 (17:20→19:03)
[2017-08-24] MEDS: HEPARIN 1000 UNITS/ML 10 ML INJ CATHETER (18:47)
[2017-08-24] MEDS ORDERED: FENTAnyl 50 MCG/ML VIAL (20:06)
[2017-08-24] MEDS ORDERED: MIDAZOLAM 1 MG/ML 2 ML INJ (20:06)
[2017-08-24] MEDS ORDERED: CEFAZOLIN 1 GM INJ (20:14)
[2017-08-24] MEDS ORDERED: GENTAMICIN 80 MG INJ (20:19)
[2017-08-24] MEDS ORDERED: ONDANSETRON 4 MG INJ IV (20:30)
[2017-08-24] MEDS ORDERED: HYDROmorphONE 1 MG/5 ML IV SYRINGE IV (20:30)
[2017-08-24] MEDS: HYDROmorphONE 1 MG/5 ML IV SYRINGE IV ×4 (20:50→21:30)
[2017-08-24] MEDS: INSULIN GLARGINE [LANtus] 3 ML PEN SC (21:00)
[2017-08-24] MEDS: DIPHENHYDRAMINE 25 MG CAP PO (23:53)
[2017-08-25] MEDS: HEPARIN 5,000 UNIT/0.5 ML VIAL SC ×3 (00:20→20:26)
[2017-08-25] MEDS: DIPHENHYDRAMINE 50 MG INJ IV ×3 (00:37→20:32)
[2017-08-25] MEDS: ACCU-CHEK XX (02:00)
[2017-08-25] MEDS: PANTOPRAZOLE (EC) 40 MG TAB PO ×2 (06:18→17:17)
[2017-08-25] MEDS: ONDANSETRON 4 MG INJ IV ×3 (06:18→22:11)
[2017-08-25] MEDS: morphine 2 MG INJ IV ×3 (06:19→22:11)
[2017-08-25] MEDS: INSULIN ASPART [NOVOLOG] 3 ML PEN SC ×4 (07:55→21:00)
[2017-08-25 08:08] LABS: ADD MAN DIFF? NO
[2017-08-25 08:16] LABS: BASOPHILS % 0.4 % (0.0-2.0); EOSINOPHILS # 0.2 10^3/ul (0.0-0.5); HEMATOCRIT 26.2 % (37.0-47.0); LYMPHOCYTES # 0.9 10^3/ul (0.8-2.9); LYMPHOCYTES % 10.3 % (15.0-51.0); MEAN CORPUSCULAR HEMOGLOBIN 30.9 pg (29.0-33.0); MEAN CORPUSCULAR HGB CONC 30.5 g/dl (32.0-37.0); MEAN CORPUSCULAR VOLUME 101.2 fl (82.0-101.0); MEAN PLATELET VOLUME 10.3 fl (7.4-10.4); MONOCYTE # 1.3 10^3/ul (0.3-0.9); MONOCYTES % 14.6 % (0.0-11.0); NEUTROPHIL # 6.5 10^3/ul (1.6-7.5); PLATELET COUNT 192 10^3/UL (140-415); RED BLOOD COUNT 2.59 10^6/ul (4.20-5.40); RED CELL DISTRIBUTION WIDTH 21.8 % (11.5-14.5)
[2017-08-25 08:32] LABS: ANION GAP 11 (8-16); BLOOD UREA NITROGEN 14 mg/dl (7-20); CALCIUM 7.9 mg/dl (8.4-10.2); CARBON DIOXIDE 28 mmol/L (21-31); CHLORIDE 104 mmol/L (97-110); CREATININE 3.89 mg/dl (0.44-1.00); GLUCOSE 93 mg/dl (70-220); MAGNESIUM 1.9 mg/dl (1.7-2.5); PHOSPHORUS 4.9 mg/dl (2.5-4.9); POTASSIUM 4.2 mmol/L (3.5-5.1); SODIUM 139 mmol/L (135-144)
[2017-08-25] MEDS: SUCRALFATE 1 GM TAB PO ×4 (09:32→20:22)
[2017-08-25] MEDS: SEVELAMER CARBONATE 2.4 GM PKT PO ×3 (09:32→17:17)
[2017-08-25] MEDS: COLLAGENASE 5 GM (UD JAR) TOP (09:32)
[2017-08-25] MEDS: ACETIC ACID 0.25% IRR 1,000 ML BTL IRR (09:33)
[2017-08-25] MEDS: INSULIN GLARGINE [LANtus] 3 ML PEN SC (20:25)
[2017-08-26] MEDS: ACCU-CHEK XX (02:00)
[2017-08-26] MEDS: PANTOPRAZOLE (EC) 40 MG TAB PO ×2 (05:03→17:54)
[2017-08-26] MEDS: DIPHENHYDRAMINE 50 MG INJ IV ×3 (05:03→21:23)
[2017-08-26] MEDS: ONDANSETRON 4 MG INJ IV ×2 (06:18→13:53)
[2017-08-26] MEDS: morphine 2 MG INJ IV ×2 (06:18→13:00)
[2017-08-26] MEDS: INSULIN ASPART [NOVOLOG] 3 ML PEN SC ×4 (07:55→21:00)
[2017-08-26] MEDS: COLLAGENASE 5 GM (UD JAR) TOP (09:13)
[2017-08-26] MEDS: SUCRALFATE 1 GM TAB PO ×4 (09:13→21:07)
[2017-08-26] MEDS: SEVELAMER CARBONATE 2.4 GM PKT PO ×3 (09:13→17:54)
[2017-08-26] MEDS: ACETIC ACID 0.25% IRR 1,000 ML BTL IRR (09:14)
[2017-08-26] MEDS: HEPARIN 5,000 UNIT/0.5 ML VIAL SC ×2 (09:18→21:19)
[2017-08-26] MEDS: INSULIN GLARGINE [LANtus] 3 ML PEN SC (21:19)
[2017-08-27] MEDS: ACCU-CHEK XX (02:00)
[2017-08-27] MEDS: PANTOPRAZOLE (EC) 40 MG TAB PO ×2 (05:42→18:39)
[2017-08-27] MEDS: ONDANSETRON 4 MG INJ IV ×2 (05:42→22:37)
[2017-08-27] MEDS: morphine 2 MG INJ IV ×3 (07:24→22:28)
[2017-08-27] MEDS: SEVELAMER CARBONATE 2.4 GM PKT PO ×3 (07:50→18:39)
[2017-08-27] MEDS: INSULIN ASPART [NOVOLOG] 3 ML PEN SC ×4 (07:55→21:00)
[2017-08-27] MEDS: SUCRALFATE 1 GM TAB PO ×4 (08:55→21:00)
[2017-08-27] MEDS: DIPHENHYDRAMINE 50 MG INJ IV ×3 (08:55→22:28)
[2017-08-27] MEDS: ACETIC ACID 0.25% IRR 1,000 ML BTL IRR (09:00)
[2017-08-27] MEDS: COLLAGENASE 5 GM (UD JAR) TOP (09:00)
[2017-08-27] MEDS: HEPARIN 5,000 UNIT/0.5 ML VIAL SC ×2 (09:08→22:33)
[2017-08-27] MEDS: ALTEPLASE (CATHFLO) 2 MG INJ CATHETER (17:07)
[2017-08-27] MEDS: HEPARIN 1000 UNITS/ML 10 ML INJ CATHETER (22:10)
[2017-08-27] MEDS: INSULIN GLARGINE [LANtus] 3 ML PEN SC (22:23)
[2017-08-28] MEDS: ACCU-CHEK XX (01:40)
[2017-08-28] MEDS: EPOETIN 10000 UNITS/1 ML INJ (ESRD) SC (04:59)
[2017-08-28] MEDS: DIPHENHYDRAMINE 50 MG INJ IV ×2 (05:09→12:43)
[2017-08-28] MEDS: morphine 2 MG INJ IV ×2 (05:09→11:14)
[2017-08-28] MEDS: PANTOPRAZOLE (EC) 40 MG TAB PO (05:09)
[2017-08-28] MEDS: INSULIN ASPART [NOVOLOG] 3 ML PEN SC ×2 (07:55→11:13)
[2017-08-28] MEDS: SUCRALFATE 1 GM TAB PO ×2 (08:56→12:43)
[2017-08-28] MEDS: COLLAGENASE 5 GM (UD JAR) TOP (08:56)
[2017-08-28] MEDS: SEVELAMER CARBONATE 2.4 GM PKT PO ×2 (08:56→11:13)
[2017-08-28] MEDS: ACETIC ACID 0.25% IRR 1,000 ML BTL IRR (08:56)
[2017-08-28 09:16] LABS: ADD MAN DIFF? NO
[2017-08-28 09:24] LABS: BASOPHIL # 0.1 10^3/ul (0.0-0.1); BASOPHILS % 0.7 % (0.0-2.0); EOSINOPHILS # 0.2 10^3/ul (0.0-0.5); HEMATOCRIT 25.7 % (37.0-47.0); HEMOGLOBIN 7.8 g/dl (12.0-16.0); LYMPHOCYTES # 0.8 10^3/ul (0.8-2.9); LYMPHOCYTES % 10.7 % (15.0-51.0); MEAN CORPUSCULAR HEMOGLOBIN 30.6 pg (29.0-33.0); MEAN CORPUSCULAR HGB CONC 30.4 g/dl (32.0-37.0); MEAN CORPUSCULAR VOLUME 100.8 fl (82.0-101.0); MEAN PLATELET VOLUME 10.4 fl (7.4-10.4); MONOCYTE # 1.2 10^3/ul (0.3-0.9); MONOCYTES % 15.6 % (0.0-11.0); NEUTROPHIL # 5.1 10^3/ul (1.6-7.5); NEUTROPHILS % 69.7 % (39.0-77.0); PLATELET COUNT 238 10^3/UL (140-415); RED BLOOD COUNT 2.55 10^6/ul (4.20-5.40); RED CELL DISTRIBUTION WIDTH 20.8 % (11.5-14.5)
[2017-08-28 09:24] LABS: WHITE BLOOD COUNT 7.4 10^3/ul (4.8-10.8)
[2017-08-28] MEDS: HEPARIN 5,000 UNIT/0.5 ML VIAL SC (09:40)
[2017-08-28 11:03] LABS: ANION GAP 11 (8-16); BLOOD UREA NITROGEN 15 mg/dl (7-20); CALCIUM 7.8 mg/dl (8.4-10.2); CARBON DIOXIDE 27 mmol/L (21-31); CHLORIDE 107 mmol/L (97-110); CREATININE 4.15 mg/dl (0.44-1.00); GLUCOSE 72 mg/dl (70-220); MAGNESIUM 1.9 mg/dl (1.7-2.5); PHOSPHORUS 3.7 mg/dl (2.5-4.9); POTASSIUM 3.7 mmol/L (3.5-5.1); SODIUM 141 mmol/L (135-144)
[2017-08-28] MEDS: ONDANSETRON 4 MG INJ IV (14:43)
[2017-09-04] MEDS: LIDOCAINE 1% (MPF) 30 ML INJ INJ (11:05)
== END 2017-08-28 16:20 | disposition home health service (06) | DRG 981 ==
LOC: TEL 08-26 14:50 → E/R 20:16 → TEL 08-19 02:29
PROC: 0HRLXK4 Replacement of Left Lower Leg Skin with Nonautologous Tissue Substitute, Partial Thickness, External Approach (ICD-10-PCS; principal; 2017-08-21 14:30)
PROC: 0HBLXZZ Excision of Left Lower Leg Skin, External Approach (ICD-10-PCS; 2017-08-21 14:30)
PROC: 30233N1 Transfusion of Nonautologous Red Blood Cells into Peripheral Vein, Percutaneous Approach (ICD-10-PCS; 2017-08-21 14:30)
PROC: 5A1D70Z Performance of Urinary Filtration, Intermittent, Less than 6 Hours Per Day (ICD-10-PCS; 2017-08-21 14:30)
PROC: 0DJ08ZZ Inspection of Upper Intestinal Tract, Via Natural or Artificial Opening Endoscopic (ICD-10-PCS; 2017-08-21 14:30)
PROC: 0DJD8ZZ Inspection of Lower Intestinal Tract, Via Natural or Artificial Opening Endoscopic (ICD-10-PCS; 2017-08-21 14:30)
PROC: 02HV33Z Insertion of Infusion Device into Superior Vena Cava, Percutaneous Approach (ICD-10-PCS; 2017-08-21 14:30)
DX: K25.0 Acute gastric ulcer with hemorrhage (principal); L89.623 Pressure ulcer of left heel, stage 3; N18.6 End stage renal disease; D62 Acute posthemorrhagic anemia; E87.1 Hypo-osmolality and hyponatremia; I12.0 Hypertensive chronic kidney disease with stage 5 chronic kidney disease or end stage renal disease; L97.822 Non-pressure chronic ulcer of other part of left lower leg with fat layer exposed; I70.262 Atherosclerosis of native arteries of extremities with gangrene, left leg; I70.201 Unspecified atherosclerosis of native arteries of extremities, right leg; D63.1 Anemia in chronic kidney disease; E10.22 Type 1 diabetes mellitus with diabetic chronic kidney disease; E10.622 Type 1 diabetes mellitus with other skin ulcer; E10.43 Type 1 diabetes mellitus with diabetic autonomic (poly)neuropathy; E78.5 Hyperlipidemia, unspecified; G89.4 Chronic pain syndrome; K92.1 Melena; K31.84 Gastroparesis; K64.8 Other hemorrhoids; L29.9 Pruritus, unspecified; Z99.2 Dependence on renal dialysis; Z79.4 Long term (current) use of insulin
CPT/HCPCS: 36415; 36430; 36569; 71045; 76937; 80048; 80053; 82270; 82962; 83690; 83735; 84100; 85014; 85018; 85025; 85610; 85730; 86850; 86900; 86901; 86920; 87070; 87075; 87102; 87116; 87340; 90935; 93005; 93931; 96374; 96375; 96376; 97116; 97162; 97530; 99291-25

== ENCOUNTER 2017-09-04 08:46 | Day surgery (SDC) | payer MEDICARE, MEDICAID ==
[2017-09-04 10:36] LABS: POTASSIUM 4.3 mmol/L (3.5-5.1)
[2017-09-04] MEDS ORDERED: LIDOCAINE 1% (MPF) 30 ML INJ (10:57)
[2017-09-04] MEDS ORDERED: FENTAnyl 50 MCG/ML VIAL ×2 (11:14→11:20)
[2017-09-04] MEDS ORDERED: MIDAZOLAM 1 MG/ML 2 ML INJ (11:14)
[2017-09-04] MEDS ORDERED: GENTAMICIN 80 MG INJ (11:29)
[2017-09-04] MEDS ORDERED: CEFAZOLIN 1 GM INJ (12:05)
[2017-09-04] MEDS ORDERED: CEFAZOLIN 2 GM/50 ML (PMX) 50 ML IVPB (12:30)
[2017-09-04] MEDS ORDERED: ONDANSETRON 4 MG INJ (12:37)
[2017-09-04] MEDS: ONDANSETRON 4 MG INJ IV (12:42)
== END 2017-09-04 15:50 | disposition home or self-care (01) ==
LOC: SDS 08:46
DX: L97.825 Non-pressure chronic ulcer of other part of left lower leg with muscle involvement without evidence of necrosis (principal); E11.9 Type 2 diabetes mellitus without complications; J44.9 Chronic obstructive pulmonary disease, unspecified; I12.0 Hypertensive chronic kidney disease with stage 5 chronic kidney disease or end stage renal disease; N18.6 End stage renal disease; Z99.2 Dependence on renal dialysis
CPT/HCPCS: 11043; 82962; 84132

== ENCOUNTER 2017-09-20 12:47 | Inpatient (IN) | payer MEDICARE, MEDICAID ==
[2017-09-20 14:33] LABS: ADD MAN DIFF? NO
[2017-09-20 14:34] LABS: WHITE BLOOD COUNT 6.6 10^3/ul (4.8-10.8)
[2017-09-20 14:34] LABS: BASOPHILS % 0.5 % (0.0-2.0); EOSINOPHILS # 0.1 10^3/ul (0.0-0.5); EOSINOPHILS % 1.4 % (0.0-7.0); HEMATOCRIT 32.4 % (37.0-47.0); HEMOGLOBIN 9.8 g/dl (12.0-16.0); LYMPHOCYTES % 14.5 % (15.0-51.0); MEAN CORPUSCULAR HEMOGLOBIN 33.2 pg (29.0-33.0); MEAN CORPUSCULAR HGB CONC 30.2 g/dl (32.0-37.0); MEAN CORPUSCULAR VOLUME 109.8 fl (82.0-101.0); MEAN PLATELET VOLUME 10.5 fl (7.4-10.4); MONOCYTE # 0.8 10^3/ul (0.3-0.9); MONOCYTES % 11.9 % (0.0-11.0); NEUTROPHIL # 4.7 10^3/ul (1.6-7.5); NEUTROPHILS % 71.2 % (39.0-77.0); PLATELET COUNT 191 10^3/UL (140-415); RED BLOOD COUNT 2.95 10^6/ul (4.20-5.40); RED CELL DISTRIBUTION WIDTH 21.4 % (11.5-14.5)
[2017-09-20] MEDS: CLOPIDOGREL 75 MG TAB PO (14:36)
[2017-09-20 14:55] LABS: ALANINE AMINOTRANSFERASE 13 IU/L (13-69); ALBUMIN 3.7 g/dl (3.3-4.9); ALBUMIN/GLOBULIN RATIO 0.78; ALKALINE PHOSPHATASE 123 IU/L (42-121); ANION GAP 12 (8-16); ASPARTATE AMINO TRANSFERASE 31 IU/L (15-46); BILIRUBIN,INDIRECT 0.4 mg/dl (0-1.1); BILIRUBIN,TOTAL 0.4 mg/dl (0.2-1.3); BLOOD UREA NITROGEN 8 mg/dl (7-20); CALCIUM 8.9 mg/dl (8.4-10.2); CARBON DIOXIDE 34 mmol/L (21-31); CHLORIDE 96 mmol/L (97-110); CREATININE 2.82 mg/dl (0.44-1.00); GLUCOSE 189 mg/dl (70-220); LIPASE 22 U/L (23-300); POTASSIUM 3.4 mmol/L (3.5-5.1); SODIUM 139 mmol/L (135-144); TOTAL PROTEIN 8.4 g/dl (6.1-8.1)
[2017-09-20 15:06] LABS: INR 1.18; PARTIAL THROMBOPLASTIN TIME 30.3 Sec (25.0-35.0); PROTIME 15.2 Sec (11.9-14.9); PT RATIO 1.2; TROPONIN-I < 0.010 ng/ml (0.000-0.120)
[2017-09-20] MEDS ORDERED: ZOLPIDEM 5 MG TAB PO (17:00)
[2017-09-20] MEDS: POTASSIUM CHLORIDE (SR) 20 MEQ TAB PO (19:18)
[2017-09-20] MEDS ORDERED: GLUCOSE GEL 15 GRAM TUBE BUCCAL (20:00)
[2017-09-20] MEDS ORDERED: DEXTROSE 50% 50 ML SYRINGE IV (20:00)
[2017-09-20] MEDS ORDERED: GLUCOSE GEL 15 GRAM TUBE PO ×2 (20:00)
[2017-09-20] MEDS ORDERED: GLUCAGON 1 MG INJ IM (20:00)
[2017-09-20] MEDS: INSULIN ASPART [NOVOLOG] 3 ML PEN SC ×2 (20:29→21:00)
[2017-09-20] MEDS ORDERED: ISOTRETINOIN 30 MG PO (21:00)
[2017-09-20] MEDS: METOPROLOL (XL) 100 MG TAB PO (21:00)
[2017-09-20] MEDS: PANTOPRAZOLE (EC) 40 MG TAB PO (22:24)
[2017-09-20] MEDS: SEVELAMER CARBONATE 0.8 GM PKT PO (22:24)
[2017-09-20] MEDS: LOSARTAN 50 MG TAB PO (22:26)
[2017-09-20] MEDS: INSULIN GLARGINE [LANTus] (100 UNITS/ML) SYG SC (23:41)
[2017-09-21] MEDS: morphine 2 MG INJ IV (00:24)
[2017-09-21] MEDS: DIPHENHYDRAMINE 50 MG INJ IV ×2 (00:24→22:27)
[2017-09-21] MEDS: ONDANSETRON 4 MG INJ IV ×2 (01:29→12:02)
[2017-09-21] MEDS: ACCU-CHEK XX (02:00)
[2017-09-21] MEDS: INSULIN ASPART [NOVOLOG] 3 ML PEN SC ×4 (07:55→21:00)
[2017-09-21 08:18] LABS: ADD MAN DIFF? NO
[2017-09-21 08:23] LABS: WHITE BLOOD COUNT 6.4 10^3/ul (4.8-10.8)
[2017-09-21 08:23] LABS: BASOPHIL # 0.1 10^3/ul (0.0-0.1); BASOPHILS % 0.8 % (0.0-2.0); EOSINOPHILS # 0.1 10^3/ul (0.0-0.5); EOSINOPHILS % 1.7 % (0.0-7.0); HEMATOCRIT 33.8 % (37.0-47.0); HEMOGLOBIN 9.9 g/dl (12.0-16.0); LYMPHOCYTES # 1.2 10^3/ul (0.8-2.9); LYMPHOCYTES % 18.8 % (15.0-51.0); MEAN CORPUSCULAR HEMOGLOBIN 31.9 pg (29.0-33.0); MEAN CORPUSCULAR HGB CONC 29.3 g/dl (32.0-37.0); MEAN PLATELET VOLUME 10.9 fl (7.4-10.4); MONOCYTES % 14.9 % (0.0-11.0); NEUTROPHIL # 4.1 10^3/ul (1.6-7.5); NEUTROPHILS % 63.5 % (39.0-77.0); PLATELET COUNT 199 10^3/UL (140-415); RED CELL DISTRIBUTION WIDTH 21.4 % (11.5-14.5)
[2017-09-21] MEDS: METOPROLOL (XL) 100 MG TAB PO ×2 (08:28→21:44)
[2017-09-21] MEDS: PANTOPRAZOLE (EC) 40 MG TAB PO ×2 (08:28→21:43)
[2017-09-21] MEDS: LOSARTAN 50 MG TAB PO ×2 (08:29→21:43)
[2017-09-21] MEDS: SEVELAMER CARBONATE 0.8 GM PKT PO ×3 (08:29→17:25)
[2017-09-21 08:42] LABS: ANION GAP 13 (8-16); BLOOD UREA NITROGEN 19 mg/dl (7-20); CALCIUM 8.4 mg/dl (8.4-10.2); CARBON DIOXIDE 32 mmol/L (21-31); CHLORIDE 99 mmol/L (97-110); CREATININE 3.82 mg/dl (0.44-1.00); GLUCOSE 114 mg/dl (70-220); PHOSPHORUS 5.2 mg/dl (2.5-4.9); SODIUM 140 mmol/L (135-144)
[2017-09-21 09:25] LABS: HEPATITIS B SURFACE ANTIGEN NEGATIVE (NEGATIVE)
[2017-09-21 10:25] LABS: CHOLESTEROL 95 mg/dl (100-200)
[2017-09-21 10:25] LABS: CHOL/HDL RATIO 2.7 RATIO; HDL CHOLESTEROL 35 mg/dl (35-98); LDL CHOLESTEROL,CALCULATED 52 mg/dl; TRIGLYCERIDES 42 mg/dl (0-149)
[2017-09-21 11:05] LABS: HEPATITIS B SURFACE ANTIBODY INDETERMINATE (NEGATIVE)
[2017-09-21] MEDS: CLOPIDOGREL 75 MG TAB PO (11:48)
[2017-09-21] MEDS: LIDOCAINE 1% (MDV) 20 ML INJ INJ (15:28)
[2017-09-21] MEDS: SUCRALFATE 1 GM TAB PO ×2 (17:24→21:42)
[2017-09-21] MEDS: EPOETIN 10000 UNITS/1 ML INJ (ESRD) SC (17:25)
[2017-09-21 19:09] LABS: RAPID PLASMA REAGIN NONREACTIVE (NR)
[2017-09-21] MEDS: ATORVASTATIN 40 MG TAB PO (21:41)
[2017-09-21] MEDS: INSULIN GLARGINE [LANTus] (100 UNITS/ML) SYG SC (22:03)
[2017-09-22] MEDS: ACCU-CHEK XX (02:00)
[2017-09-22] MEDS: INSULIN ASPART [NOVOLOG] 3 ML PEN SC ×4 (07:55→21:00)
[2017-09-22 08:18] LABS: ADD MAN DIFF? NO
[2017-09-22 08:19] LABS: BASOPHIL # 0.1 10^3/ul (0.0-0.1); BASOPHILS % 0.9 % (0.0-2.0); EOSINOPHILS # 0.1 10^3/ul (0.0-0.5); EOSINOPHILS % 1.4 % (0.0-7.0); HEMATOCRIT 33.9 % (37.0-47.0); HEMOGLOBIN 10.1 g/dl (12.0-16.0); LYMPHOCYTES # 1.2 10^3/ul (0.8-2.9); LYMPHOCYTES % 15.5 % (15.0-51.0); MEAN CORPUSCULAR HEMOGLOBIN 32.7 pg (29.0-33.0); MEAN CORPUSCULAR HGB CONC 29.8 g/dl (32.0-37.0); MEAN CORPUSCULAR VOLUME 109.7 fl (82.0-101.0); MEAN PLATELET VOLUME 10.8 fl (7.4-10.4); MONOCYTE # 1.2 10^3/ul (0.3-0.9); MONOCYTES % 14.6 % (0.0-11.0); NEUTROPHIL # 5.4 10^3/ul (1.6-7.5); NEUTROPHILS % 67.2 % (39.0-77.0); PLATELET COUNT 208 10^3/UL (140-415); RED BLOOD COUNT 3.09 10^6/ul (4.20-5.40); RED CELL DISTRIBUTION WIDTH 20.9 % (11.5-14.5)
[2017-09-22 08:42] LABS: ANION GAP 12 (8-16); BLOOD UREA NITROGEN 17 mg/dl (7-20); CALCIUM 8.5 mg/dl (8.4-10.2); CARBON DIOXIDE 30 mmol/L (21-31); CHLORIDE 100 mmol/L (97-110); GLUCOSE 123 mg/dl (70-220); POTASSIUM 4.1 mmol/L (3.5-5.1); SODIUM 138 mmol/L (135-144)
[2017-09-22] MEDS: SEVELAMER CARBONATE 0.8 GM PKT PO ×3 (08:47→18:04)
[2017-09-22] MEDS: PANTOPRAZOLE (EC) 40 MG TAB PO ×2 (08:47→20:59)
[2017-09-22] MEDS: CLOPIDOGREL 75 MG TAB PO (08:47)
[2017-09-22] MEDS: METOPROLOL (XL) 100 MG TAB PO ×2 (08:47→21:00)
[2017-09-22] MEDS: SUCRALFATE 1 GM TAB PO ×4 (08:47→21:00)
[2017-09-22] MEDS: LOSARTAN 50 MG TAB PO ×2 (08:48→20:59)
[2017-09-22] MEDS: INSULIN GLARGINE [LANTus] (100 UNITS/ML) SYG SC (21:34)
[2017-09-22] MEDS: morphine 2 MG INJ IV (23:03)
[2017-09-22] MEDS: ONDANSETRON 4 MG INJ IV (23:08)
[2017-09-23] MEDS: ACCU-CHEK XX (02:00)
[2017-09-23] MEDS: [UNRECOGNIZED DRUG - REMARK] XX ×3 (07:30→23:11)
[2017-09-23] MEDS: INSULIN ASPART [NOVOLOG] 3 ML PEN SC ×4 (07:55→22:40)
[2017-09-23] MEDS: SEVELAMER CARBONATE 0.8 GM PKT PO ×3 (08:07→17:31)
[2017-09-23] MEDS: SUCRALFATE 1 GM TAB PO ×4 (08:08→21:57)
[2017-09-23] MEDS: CLOPIDOGREL 75 MG TAB PO (08:09)
[2017-09-23] MEDS: LOSARTAN 50 MG TAB PO ×2 (08:09→21:57)
[2017-09-23] MEDS: METOPROLOL (XL) 100 MG TAB PO ×2 (08:09→21:57)
[2017-09-23] MEDS: PANTOPRAZOLE (EC) 40 MG TAB PO ×2 (08:09→21:57)
[2017-09-23] MEDS: DEXTROSE 50% 50 ML SYRINGE IV (08:34)
[2017-09-23] MEDS ORDERED: morphine LIQ (10 MG/5 ML) CUP PO (13:00)
[2017-09-23] MEDS: DIPHENHYDRAMINE 50 MG INJ IV (22:11)
[2017-09-23] MEDS: INSULIN GLARGINE [LANTus] (100 UNITS/ML) SYG SC (22:40)
[2017-09-24] MEDS: ACCU-CHEK XX (02:00)
[2017-09-24] MEDS: [UNRECOGNIZED DRUG - REMARK] XX ×3 (07:30→23:30)
[2017-09-24] MEDS: INSULIN ASPART [NOVOLOG] 3 ML PEN SC ×4 (08:09→21:00)
[2017-09-24] MEDS: ONDANSETRON 4 MG INJ IV (08:52)
[2017-09-24] MEDS: morphine LIQ (10 MG/5 ML) CUP PO (08:52)
[2017-09-24] MEDS: SEVELAMER CARBONATE 0.8 GM PKT PO ×3 (08:58→17:47)
[2017-09-24] MEDS: PANTOPRAZOLE (EC) 40 MG TAB PO ×2 (08:58→21:03)
[2017-09-24] MEDS: CLOPIDOGREL 75 MG TAB PO (08:58)
[2017-09-24] MEDS: LOSARTAN 50 MG TAB PO ×2 (08:59→21:14)
[2017-09-24] MEDS: METOPROLOL (XL) 100 MG TAB PO ×2 (08:59→21:14)
[2017-09-24] MEDS: SUCRALFATE 1 GM TAB PO ×4 (08:59→21:00)
[2017-09-24] MEDS: morphine 2 MG INJ IV (13:00)
[2017-09-24] MEDS: COLLAGENASE 5 GM (UD JAR) TOP (15:00)
[2017-09-24 17:12] LABS: ALANINE AMINOTRANSFERASE 11 IU/L (13-69); ALBUMIN 2.9 g/dl (3.3-4.9); ALBUMIN/GLOBULIN RATIO 0.69; ALKALINE PHOSPHATASE 108 IU/L (42-121); ANION GAP 12 (8-16); ASPARTATE AMINO TRANSFERASE 20 IU/L (15-46); BILIRUBIN,INDIRECT 0.2 mg/dl (0-1.1); BILIRUBIN,TOTAL 0.2 mg/dl (0.2-1.3); BLOOD UREA NITROGEN 18 mg/dl (7-20); CALCIUM 8.4 mg/dl (8.4-10.2); CARBON DIOXIDE 31 mmol/L (21-31); CHLORIDE 98 mmol/L (97-110); CREATININE 3.66 mg/dl (0.44-1.00); GLUCOSE 81 mg/dl (70-220); POTASSIUM 4.1 mmol/L (3.5-5.1); SODIUM 137 mmol/L (135-144); TOTAL PROTEIN 7.1 g/dl (6.1-8.1)
[2017-09-24] MEDS: EPOETIN 10000 UNITS/1 ML INJ (ESRD) SC (17:42)
[2017-09-24] MEDS ORDERED: morphine LIQ (10 MG/5 ML) CUP PO (20:00)
[2017-09-24] MEDS: INSULIN GLARGINE [LANTus] (100 UNITS/ML) SYG SC (21:00)
[2017-09-25] MEDS: DIPHENHYDRAMINE 50 MG INJ IV ×2 (01:25→21:25)
[2017-09-25] MEDS: ACCU-CHEK XX ×2 (01:58→22:33)
[2017-09-25] MEDS: [UNRECOGNIZED DRUG - REMARK] XX ×3 (01:58→23:25)
[2017-09-25] MEDS: INSULIN ASPART [NOVOLOG] 3 ML PEN SC ×4 (07:55→21:00)
[2017-09-25] MEDS: METOPROLOL (XL) 100 MG TAB PO ×2 (09:03→21:24)
[2017-09-25] MEDS: PANTOPRAZOLE (EC) 40 MG TAB PO ×2 (09:03→21:23)
[2017-09-25] MEDS: COLLAGENASE 5 GM (UD JAR) TOP (09:03)
[2017-09-25] MEDS: SUCRALFATE 1 GM TAB PO ×4 (09:03→21:23)
[2017-09-25] MEDS: SEVELAMER CARBONATE 0.8 GM PKT PO ×3 (09:03→18:34)
[2017-09-25] MEDS: CLOPIDOGREL 75 MG TAB PO (09:04)
[2017-09-25] MEDS: LOSARTAN 50 MG TAB PO ×2 (09:04→21:24)
[2017-09-25] MEDS: INSULIN GLARGINE [LANTus] (100 UNITS/ML) SYG SC (21:43)
[2017-09-26] MEDS: ONDANSETRON 4 MG INJ IV ×2 (02:20→22:46)
[2017-09-26] MEDS: morphine 2 MG INJ IV ×2 (02:20→22:47)
[2017-09-26] MEDS: [UNRECOGNIZED DRUG - REMARK] XX ×3 (07:30→23:56)
[2017-09-26] MEDS: INSULIN ASPART [NOVOLOG] 3 ML PEN SC ×5 (07:55→20:25)
[2017-09-26] MEDS: SEVELAMER CARBONATE 0.8 GM PKT PO ×3 (08:55→16:44)
[2017-09-26] MEDS: COLLAGENASE 5 GM (UD JAR) TOP (08:55)
[2017-09-26] MEDS: LOSARTAN 50 MG TAB PO ×2 (08:56→20:25)
[2017-09-26] MEDS: METOPROLOL (XL) 100 MG TAB PO ×2 (08:56→20:24)
[2017-09-26] MEDS: SUCRALFATE 1 GM TAB PO ×4 (08:56→20:24)
[2017-09-26] MEDS: CLOPIDOGREL 75 MG TAB PO (08:56)
[2017-09-26] MEDS: PANTOPRAZOLE (EC) 40 MG TAB PO ×2 (08:58→20:25)
[2017-09-26] MEDS: EPOETIN 10000 UNITS/1 ML INJ (ESRD) SC (16:46)
[2017-09-26] MEDS: DIPHENHYDRAMINE 50 MG INJ IV (20:26)
[2017-09-26] MEDS: INSULIN GLARGINE [LANTus] (100 UNITS/ML) SYG SC (20:26)
[2017-09-27] MEDS: ACCU-CHEK XX (02:00)
[2017-09-27] MEDS: [UNRECOGNIZED DRUG - REMARK] XX (07:30)
[2017-09-27] MEDS: SEVELAMER CARBONATE 0.8 GM PKT PO ×2 (07:54→11:33)
[2017-09-27] MEDS: INSULIN ASPART [NOVOLOG] 3 ML PEN SC ×2 (08:00→11:37)
[2017-09-27 08:44] LABS: ADD MAN DIFF? NO
[2017-09-27 08:50] LABS: WHITE BLOOD COUNT 7.7 10^3/ul (4.8-10.8)
[2017-09-27 08:50] LABS: BASOPHILS % 0.5 % (0.0-2.0); EOSINOPHILS # 0.1 10^3/ul (0.0-0.5); EOSINOPHILS % 1.3 % (0.0-7.0); HEMATOCRIT 33.3 % (37.0-47.0); HEMOGLOBIN 10.1 g/dl (12.0-16.0); LYMPHOCYTES # 0.9 10^3/ul (0.8-2.9); LYMPHOCYTES % 12.2 % (15.0-51.0); MEAN CORPUSCULAR HEMOGLOBIN 33.1 pg (29.0-33.0); MEAN CORPUSCULAR HGB CONC 30.3 g/dl (32.0-37.0); MEAN CORPUSCULAR VOLUME 109.2 fl (82.0-101.0); MEAN PLATELET VOLUME 10.4 fl (7.4-10.4); MONOCYTE # 1.2 10^3/ul (0.3-0.9); MONOCYTES % 15.6 % (0.0-11.0); NEUTROPHIL # 5.4 10^3/ul (1.6-7.5); PLATELET COUNT 215 10^3/UL (140-415); RED BLOOD COUNT 3.05 10^6/ul (4.20-5.40)
[2017-09-27] MEDS: METOPROLOL (XL) 100 MG TAB PO (09:13)
[2017-09-27] MEDS: PANTOPRAZOLE (EC) 40 MG TAB PO (09:13)
[2017-09-27] MEDS: CLOPIDOGREL 75 MG TAB PO (09:13)
[2017-09-27] MEDS: SUCRALFATE 1 GM TAB PO ×2 (09:13→13:52)
[2017-09-27] MEDS: LOSARTAN 50 MG TAB PO (09:13)
[2017-09-27] MEDS: COLLAGENASE 5 GM (UD JAR) TOP (09:14)
[2017-09-27 09:15] LABS: ANION GAP 13 (8-16); BLOOD UREA NITROGEN 25 mg/dl (7-20); CALCIUM 8.7 mg/dl (8.4-10.2); CARBON DIOXIDE 27 mmol/L (21-31); CHLORIDE 101 mmol/L (97-110); CREATININE 4.66 mg/dl (0.44-1.00); GLUCOSE 190 mg/dl (70-220); MAGNESIUM 2.2 mg/dl (1.7-2.5); PHOSPHORUS 3.5 mg/dl (2.5-4.9); POTASSIUM 4.4 mmol/L (3.5-5.1); SODIUM 137 mmol/L (135-144)
[2017-09-27] MEDS ORDERED: GENTAMICIN IV PER PHARMACY XX (14:00)
[2017-09-27] MEDS ORDERED: GENTAMICIN 100 MG/50 ML NS IVPB (15:45)
[2017-09-28] MEDS ORDERED: SOD CHLORIDE 0.9% IVPB (09:00)
[2017-09-28] MEDS ORDERED: GENTAMICIN IVPB (09:00)
== END 2017-09-27 14:40 | DRG 64 ==
LOC: E/R 12:47 → TEL 16:53
PROC: 5A1D70Z Performance of Urinary Filtration, Intermittent, Less than 6 Hours Per Day (ICD-10-PCS; 2017-09-21)
PROC: 5A1D70Z Performance of Urinary Filtration, Intermittent, Less than 6 Hours Per Day (ICD-10-PCS; 2017-09-23)
PROC: 5A1D70Z Performance of Urinary Filtration, Intermittent, Less than 6 Hours Per Day (ICD-10-PCS; principal; 2017-09-26)
DX: I63.9 Cerebral infarction, unspecified (principal); L89.313 Pressure ulcer of right buttock, stage 3; N18.6 End stage renal disease; I13.2 Hypertensive heart and chronic kidney disease with heart failure and with stage 5 chronic kidney disease, or end stage renal disease; G81.91 Hemiplegia, unspecified affecting right dominant side; I50.22 Chronic systolic (congestive) heart failure; I42.9 Cardiomyopathy, unspecified; L97.223 Non-pressure chronic ulcer of left calf with necrosis of muscle; G81.94 Hemiplegia, unspecified affecting left nondominant side; L89.152 Pressure ulcer of sacral region, stage 2; E10.22 Type 1 diabetes mellitus with diabetic chronic kidney disease; E10.622 Type 1 diabetes mellitus with other skin ulcer; E10.43 Type 1 diabetes mellitus with diabetic autonomic (poly)neuropathy; K31.84 Gastroparesis; R47.1 Dysarthria and anarthria; R29.810 Facial weakness; K25.7 Chronic gastric ulcer without hemorrhage or perforation; G89.4 Chronic pain syndrome; R29.703 NIHSS score 3; Z79.4 Long term (current) use of insulin; Z79.02 Long term (current) use of antithrombotics/antiplatelets; Z99.2 Dependence on renal dialysis
CPT/HCPCS: 36415; 70450; 70551; 71045; 72192; 80048; 80053; 80061; 82962; 83690; 83735; 84100; 84484; 85025; 85610; 85730; 86592; 86706; 87070; 87340; 90935; 92526; 92610; 93005; 93306; 93880; 97116; 97162; 97165; 97530; 99285-25

== ENCOUNTER 2017-09-27 16:50 | Inpatient (IN) | payer MEDICARE, MEDICAID ==
[2017-09-27] MEDS ORDERED: LACTULOSE 30ML CUP PO (17:30)
[2017-09-27] MEDS ORDERED: MAGNESIUM HYDROXIDE 30ML CUP PO (17:30)
[2017-09-27] MEDS ORDERED: ACETAMINOPHEN 325 MG TAB PO (17:30)
[2017-09-27] MEDS ORDERED: BISACODYL 10 MG SUPP PR (17:30)
[2017-09-27] MEDS: ONDANSETRON 4 MG INJ IV (20:29)
[2017-09-27] MEDS ORDERED: GLUCAGON 1 MG INJ IM (20:30)
[2017-09-27] MEDS: PANTOPRAZOLE (EC) 40 MG TAB PO (20:30)
[2017-09-27] MEDS: morphine 2 MG INJ IV (20:30)
[2017-09-27] MEDS ORDERED: GLUCOSE GEL 15 GRAM TUBE PO ×2 (20:30)
[2017-09-27] MEDS ORDERED: morphine LIQ (10 MG/5 ML) CUP PO (20:30)
[2017-09-27] MEDS ORDERED: DEXTROSE 50% 50 ML SYRINGE IV (20:30)
[2017-09-27] MEDS: LOSARTAN 50 MG TAB PO (20:31)
[2017-09-27] MEDS: DOCUSATE SODIUM 100 MG CAP PO (20:44)
[2017-09-27] MEDS: SENNA TAB PO (20:44)
[2017-09-27] MEDS: METOPROLOL (XL) 100 MG TAB PO (21:59)
[2017-09-27] MEDS: INSULIN GLARGINE [LANTus] (100 UNITS/ML) SYG SC (22:13)
[2017-09-27] MEDS: Insulin NOVOLOG SS MILD Algorithm (SS with meals and bedtime) SC (22:14)
[2017-09-27] MEDS ORDERED: ZOLPIDEM 5 MG TAB PO (23:45)
[2017-09-28] MEDS: morphine 2 MG INJ IV ×3 (00:39→15:26)
[2017-09-28] MEDS: ONDANSETRON 4 MG INJ IV ×4 (00:39→23:59)
[2017-09-28] MEDS: ACCUCHECK AT 2AM (Patients on SS coverage) XX (02:00)
[2017-09-28] MEDS ORDERED: PENDING SANTYL ORDER FOR WOUND CARE XX ×2 (02:00)
[2017-09-28 06:39] LABS: ADD MAN DIFF? NO
[2017-09-28 06:44] LABS: BASOPHILS % 0.6 % (0.0-2.0); EOSINOPHILS # 0.1 10^3/ul (0.0-0.5); HEMATOCRIT 33.1 % (37.0-47.0); LYMPHOCYTES % 14.4 % (15.0-51.0); MEAN CORPUSCULAR HEMOGLOBIN 32.7 pg (29.0-33.0); MEAN CORPUSCULAR HGB CONC 30.2 g/dl (32.0-37.0); MEAN CORPUSCULAR VOLUME 108.2 fl (82.0-101.0); MONOCYTE # 1.1 10^3/ul (0.3-0.9); MONOCYTES % 15.2 % (0.0-11.0); NEUTROPHIL # 4.7 10^3/ul (1.6-7.5); NEUTROPHILS % 67.5 % (39.0-77.0); PLATELET COUNT 228 10^3/UL (140-415); RED BLOOD COUNT 3.06 10^6/ul (4.20-5.40); RED CELL DISTRIBUTION WIDTH 18.8 % (11.5-14.5)
[2017-09-28] MEDS: Insulin NOVOLOG SS MILD Algorithm (SS with meals and bedtime) SC ×4 (07:05→21:00)
[2017-09-28 07:24] LABS: ALANINE AMINOTRANSFERASE 9 IU/L (13-69); ALBUMIN 2.9 g/dl (3.3-4.9); ALBUMIN/GLOBULIN RATIO 0.72; ALKALINE PHOSPHATASE 134 IU/L (42-121); ANION GAP 15 (8-16); ASPARTATE AMINO TRANSFERASE 17 IU/L (15-46); BILIRUBIN,INDIRECT 0.2 mg/dl (0-1.1); BILIRUBIN,TOTAL 0.2 mg/dl (0.2-1.3); BLOOD UREA NITROGEN 31 mg/dl (7-20); CALCIUM 8.6 mg/dl (8.4-10.2); CARBON DIOXIDE 29 mmol/L (21-31); CHLORIDE 100 mmol/L (97-110); GLUCOSE 122 mg/dl (70-220); POTASSIUM 4.6 mmol/L (3.5-5.1); SODIUM 139 mmol/L (135-144); TOTAL PROTEIN 6.9 g/dl (6.1-8.1)
[2017-09-28] MEDS: SEVELAMER CARBONATE 0.8 GM PKT PO ×3 (07:57→17:37)
[2017-09-28] MEDS ORDERED: DIPHENHYDRAMINE 50 MG INJ IV (08:00)
[2017-09-28] MEDS: COLLAGENASE 5 GM (UD JAR) TOP (08:41)
[2017-09-28] MEDS: morphine LIQ (10 MG/5 ML) CUP PO (08:41)
[2017-09-28] MEDS: CLOPIDOGREL 75 MG TAB PO (08:42)
[2017-09-28] MEDS: SUCRALFATE 1 GM TAB PO ×4 (08:42→21:06)
[2017-09-28] MEDS: LOSARTAN 50 MG TAB PO ×2 (08:42→21:07)
[2017-09-28] MEDS: METOPROLOL (XL) 100 MG TAB PO ×2 (08:42→21:06)
[2017-09-28] MEDS: PANTOPRAZOLE (EC) 40 MG TAB PO ×2 (08:42→21:06)
[2017-09-28] MEDS: DOCUSATE SODIUM 100 MG CAP PO ×2 (08:42→21:05)
[2017-09-28] MEDS: ZYVOX 600 MG TAB PO ×2 (15:25→23:54)
[2017-09-28] MEDS: EPOETIN 10000 UNITS/1 ML INJ (ESRD) SC (17:38)
[2017-09-28] MEDS: SENNA TAB PO (21:05)
[2017-09-28] MEDS: INSULIN GLARGINE [LANTus] (100 UNITS/ML) SYG SC (21:23)
[2017-09-29] MEDS: ACCUCHECK AT 2AM (Patients on SS coverage) XX (02:37)
[2017-09-29] MEDS: Insulin NOVOLOG SS MILD Algorithm (SS with meals and bedtime) SC ×4 (07:05→21:00)
[2017-09-29] MEDS: SEVELAMER CARBONATE 0.8 GM PKT PO ×3 (07:50→17:44)
[2017-09-29] MEDS: GLUCOSE GEL 15 GRAM TUBE BUCCAL (08:05)
[2017-09-29] MEDS: DEXTROSE 50% 50 ML SYRINGE IV (08:15)
[2017-09-29] MEDS: SUCRALFATE 1 GM TAB PO ×4 (09:00→21:14)
[2017-09-29] MEDS: METOPROLOL (XL) 100 MG TAB PO ×2 (09:00→21:16)
[2017-09-29] MEDS: ONDANSETRON 4 MG INJ IV ×2 (09:39→16:42)
[2017-09-29] MEDS: morphine 2 MG INJ IV ×2 (09:40→16:42)
[2017-09-29] MEDS: COLLAGENASE 5 GM (UD JAR) TOP (09:52)
[2017-09-29] MEDS: CLOPIDOGREL 75 MG TAB PO (09:52)
[2017-09-29] MEDS: PANTOPRAZOLE (EC) 40 MG TAB PO ×2 (09:54→21:15)
[2017-09-29] MEDS: LOSARTAN 50 MG TAB PO ×2 (09:54→21:14)
[2017-09-29] MEDS: DOCUSATE SODIUM 100 MG CAP PO ×2 (09:54→21:16)
[2017-09-29] MEDS: ZYVOX 600 MG TAB PO ×2 (09:54→21:15)
[2017-09-29] MEDS ORDERED: morphine LIQ (10 MG/5 ML) CUP PO (12:30)
[2017-09-29] MEDS ORDERED: DIPHENHYDRAMINE 50 MG INJ IV (14:00)
[2017-09-29] MEDS: SENNA TAB PO (21:16)
[2017-09-29] MEDS: INSULIN GLARGINE [LANTus] (100 UNITS/ML) SYG SC (21:25)
[2017-09-30] MEDS: ACCUCHECK AT 2AM (Patients on SS coverage) XX (02:00)
[2017-09-30] MEDS: Insulin NOVOLOG SS MILD Algorithm (SS with meals and bedtime) SC ×4 (07:05→21:00)
[2017-09-30] MEDS: SEVELAMER CARBONATE 0.8 GM PKT PO ×3 (08:38→17:56)
[2017-09-30] MEDS: LOSARTAN 50 MG TAB PO ×2 (09:00→21:06)
[2017-09-30] MEDS: ZYVOX 600 MG TAB PO ×2 (09:11→21:00)
[2017-09-30] MEDS: DOCUSATE SODIUM 100 MG CAP PO ×2 (09:11→21:06)
[2017-09-30] MEDS: CLOPIDOGREL 75 MG TAB PO (09:11)
[2017-09-30] MEDS: SUCRALFATE 1 GM TAB PO ×4 (09:11→21:06)
[2017-09-30] MEDS: PANTOPRAZOLE (EC) 40 MG TAB PO ×2 (09:11→21:06)
[2017-09-30] MEDS: morphine 2 MG INJ IV ×2 (09:13→14:23)
[2017-09-30] MEDS: METOPROLOL (XL) 100 MG TAB PO ×2 (09:17→21:07)
[2017-09-30] MEDS: ONDANSETRON 4 MG INJ IV ×2 (12:57→17:58)
[2017-09-30] MEDS: COLLAGENASE 5 GM (UD JAR) TOP (14:22)
[2017-09-30] MEDS: INSULIN GLARGINE [LANTus] (100 UNITS/ML) SYG SC (21:04)
[2017-09-30] MEDS: SENNA TAB PO (21:06)
[2017-10-01] MEDS: ACCUCHECK AT 2AM (Patients on SS coverage) XX (02:00)
[2017-10-01] MEDS: Insulin NOVOLOG SS MILD Algorithm (SS with meals and bedtime) SC ×4 (07:05→22:18)
[2017-10-01] MEDS: SEVELAMER CARBONATE 0.8 GM PKT PO ×3 (07:40→17:36)
[2017-10-01] MEDS: DEXTROSE 50% 50 ML SYRINGE IV (07:41)
[2017-10-01] MEDS: METOPROLOL (XL) 100 MG TAB PO ×2 (09:00→21:47)
[2017-10-01] MEDS: LOSARTAN 50 MG TAB PO ×2 (09:00→21:47)
[2017-10-01] MEDS: PANTOPRAZOLE (EC) 40 MG TAB PO ×2 (09:00→21:46)
[2017-10-01] MEDS: SUCRALFATE 1 GM TAB PO ×4 (09:00→21:46)
[2017-10-01] MEDS: DOCUSATE SODIUM 100 MG CAP PO ×2 (09:00→21:00)
[2017-10-01] MEDS: ZYVOX 600 MG TAB PO ×2 (09:09→21:46)
[2017-10-01] MEDS: CLOPIDOGREL 75 MG TAB PO (09:09)
[2017-10-01] MEDS: ONDANSETRON 4 MG INJ IV ×2 (09:09→21:57)
[2017-10-01] MEDS: COLLAGENASE 5 GM (UD JAR) TOP (09:09)
[2017-10-01] MEDS: morphine 2 MG INJ IV ×2 (09:10→22:03)
[2017-10-01] MEDS: EPOETIN 10000 UNITS/1 ML INJ (ESRD) SC (17:37)
[2017-10-01] MEDS: DIPHENHYDRAMINE 50 MG INJ IV (19:51)
[2017-10-01] MEDS: SENNA TAB PO (21:00)
[2017-10-01] MEDS: ATORVASTATIN 40 MG TAB PO (21:00)
[2017-10-01] MEDS: INSULIN GLARGINE [LANTus] (100 UNITS/ML) SYG SC (22:17)
[2017-10-02] MEDS: ACCUCHECK AT 2AM (Patients on SS coverage) XX (02:23)
[2017-10-02 06:52] LABS: ADD MAN DIFF? NO
[2017-10-02] MEDS: Insulin NOVOLOG SS MILD Algorithm (SS with meals and bedtime) SC ×3 (07:05→17:05)
[2017-10-02 07:14] LABS: HEMOGLOBIN 10.1 g/dl (12.0-16.0)
[2017-10-02 07:14] LABS: HEMATOCRIT 32.7 % (37.0-47.0)
[2017-10-02 07:15] LABS: BASOPHILS % 0.4 % (0.0-2.0); EOSINOPHILS # 0.1 10^3/ul (0.0-0.5); EOSINOPHILS % 1.4 % (0.0-7.0); HEMATOCRIT 33.1 % (37.0-47.0); HEMOGLOBIN 10.1 g/dl (12.0-16.0); IMMATURE GRANS #M 0.04 10^3/ul; IMMATURE GRANS % (M) 0.4 %; LYMPHOCYTES # 0.9 10^3/ul (0.8-2.9); LYMPHOCYTES % 9.4 % (15.0-51.0); MEAN CORPUSCULAR HEMOGLOBIN 31.5 pg (29.0-33.0); MEAN CORPUSCULAR HGB CONC 30.5 g/dl (32.0-37.0); MEAN CORPUSCULAR VOLUME 103.1 fl (82.0-101.0); MONOCYTE # 1.4 10^3/ul (0.3-0.9); NEUTROPHIL # 6.6 10^3/ul (1.6-7.5); NEUTROPHILS % 73.4 % (39.0-77.0); PLATELET COUNT 269 10^3/UL (140-415); RED BLOOD COUNT 3.21 10^6/ul (4.20-5.40); RED CELL DISTRIBUTION WIDTH 17.6 % (11.5-14.5)
[2017-10-02] MEDS: SEVELAMER CARBONATE 0.8 GM PKT PO ×3 (07:53→17:16)
[2017-10-02] MEDS: morphine 2 MG INJ IV (08:25)
[2017-10-02] MEDS: CLOPIDOGREL 75 MG TAB PO (09:41)
[2017-10-02] MEDS: ZYVOX 600 MG TAB PO (09:41)
[2017-10-02] MEDS: LOSARTAN 50 MG TAB PO (09:41)
[2017-10-02] MEDS: METOPROLOL (XL) 100 MG TAB PO (09:42)
[2017-10-02] MEDS: DOCUSATE SODIUM 100 MG CAP PO (09:42)
[2017-10-02] MEDS: ONDANSETRON 4 MG INJ IV (09:42)
[2017-10-02] MEDS: PANTOPRAZOLE (EC) 40 MG TAB PO (09:42)
[2017-10-02] MEDS: COLLAGENASE 5 GM (UD JAR) TOP (09:43)
[2017-10-02] MEDS: SUCRALFATE 1 GM TAB PO ×3 (09:43→17:00)
== END 2017-10-02 17:45 | DRG 56 ==
LOC: VRC 16:50
PROVIDERS: Internal Medicine Nephrology
PROC: 5A1D70Z Performance of Urinary Filtration, Intermittent, Less than 6 Hours Per Day (ICD-10-PCS; principal; 2017-09-28)
PROC: 5A1D70Z Performance of Urinary Filtration, Intermittent, Less than 6 Hours Per Day (ICD-10-PCS; 2017-09-29)
PROC: 5A1D70Z Performance of Urinary Filtration, Intermittent, Less than 6 Hours Per Day (ICD-10-PCS; 2017-10-01)
PROC: F07Z5ZZ Bed Mobility Treatment (ICD-10-PCS; 2017-10-01)
PROC: F08Z2ZZ Grooming/Personal Hygiene Treatment (ICD-10-PCS; 2017-10-01)
PROC: F06Z6ZZ Communicative/Cognitive Integration Skills Treatment (ICD-10-PCS; 2017-10-01)
DX: I69.351 Hemiplegia and hemiparesis following cerebral infarction affecting right dominant side (principal); N18.6 End stage renal disease; I12.0 Hypertensive chronic kidney disease with stage 5 chronic kidney disease or end stage renal disease; A18.01 Tuberculosis of spine; I42.9 Cardiomyopathy, unspecified; L97.829 Non-pressure chronic ulcer of other part of left lower leg with unspecified severity; I69.391 Dysphagia following cerebral infarction; R13.10 Dysphagia, unspecified; E10.9 Type 1 diabetes mellitus without complications; G89.4 Chronic pain syndrome; E10.22 Type 1 diabetes mellitus with diabetic chronic kidney disease; Z99.2 Dependence on renal dialysis; I73.9 Peripheral vascular disease, unspecified; D64.9 Anemia, unspecified; K27.9 Peptic ulcer, site unspecified, unspecified as acute or chronic, without hemorrhage or perforation
CPT/HCPCS: 80053; 82962; 85014; 85018; 85025; 87081; 90935; 92507; 92522; 92610; 97110; 97112; 97116; 97163; 97167; 97530; 97535; 97542

== ENCOUNTER 2017-12-14 20:32 | Inpatient (IN) | payer MEDICARE, MEDICAID ==
[2017-12-15] MEDS: SODIUM CHLORIDE 0.9% 1L BAG IV* (00:05)
[2017-12-15 00:19] LABS: ADD MAN DIFF? NO
[2017-12-15 00:21] LABS: BASOPHILS % 0.5 % (0.0-2.0); EOSINOPHILS % 0.5 % (0.0-7.0); HEMATOCRIT 24.4 % (37.0-47.0); HEMOGLOBIN 7.5 g/dl (12.0-16.0); LYMPHOCYTES # 0.7 10^3/ul (0.8-2.9); LYMPHOCYTES % 11.3 % (15.0-51.0); MEAN CORPUSCULAR HEMOGLOBIN 32.8 pg (29.0-33.0); MEAN CORPUSCULAR HGB CONC 30.7 g/dl (32.0-37.0); MEAN CORPUSCULAR VOLUME 106.6 fl (82.0-101.0); MEAN PLATELET VOLUME 10.8 fl (7.4-10.4); MONOCYTE # 0.8 10^3/ul (0.3-0.9); MONOCYTES % 12.6 % (0.0-11.0); NEUTROPHIL # 4.6 10^3/ul (1.6-7.5); NEUTROPHILS % 74.6 % (39.0-77.0); NUCLEATED RED BLOOD CELLS # 0.1 10^3/ul (0.0-0.0); NUCLEATED RED BLOOD CELLS% 0.8 /100WBC (0.0-0.0); PLATELET COUNT 186 10^3/UL (140-415); RED BLOOD COUNT 2.29 10^6/ul (4.20-5.40); RED CELL DISTRIBUTION WIDTH 19.9 % (11.5-14.5)
[2017-12-15 00:21] LABS: WHITE BLOOD COUNT 6.2 10^3/ul (4.8-10.8)
[2017-12-15] MEDS: PIPER-TAZO 3.375 GM IV (PMX) 100 ML IVPB (00:42)
[2017-12-15] MEDS: morphine 4 MG/ML VIAL IV (00:42)
[2017-12-15 00:43] LABS: ALANINE AMINOTRANSFERASE 11 IU/L (13-69); ALBUMIN/GLOBULIN RATIO 0.52; ALKALINE PHOSPHATASE 116 IU/L (42-121); ANION GAP 11 (5-13); ASPARTATE AMINO TRANSFERASE 20 IU/L (15-46); BILIRUBIN,INDIRECT 0.1 mg/dl (0-1.1); BILIRUBIN,TOTAL 0.1 mg/dl (0.2-1.3); BLOOD UREA NITROGEN 17 mg/dl (7-20); CALCIUM 6.6 mg/dl (8.4-10.2); CARBON DIOXIDE 22 mmol/L (21-31); CHLORIDE 109 mmol/L (97-110); CREATININE 2.35 mg/dl (0.44-1.00); Estimated GFR 26 mL/min (>60); GLUCOSE 207 mg/dl (70-220); POTASSIUM 3.2 mmol/L (3.5-5.1); SODIUM 142 mmol/L (135-144); TOTAL PROTEIN 5.8 g/dl (6.1-8.1)
[2017-12-15] MEDS ORDERED: ONDANSETRON 4 MG INJ (00:45)
[2017-12-15] MEDS ORDERED: ACETAMINOPHEN 325 MG TAB PO (02:00)
[2017-12-15] MEDS ORDERED: ONDANSETRON 4 MG INJ IV (02:00)
[2017-12-15] MEDS ORDERED: HEPARIN 5,000 UNIT/0.5 ML VIAL SC ×2 (09:00→10:30)
[2017-12-15] MEDS ORDERED: INSULIN ASPART [NOVOLOG] 3 ML PEN SC (10:30)
[2017-12-15] MEDS ORDERED: GLUCOSE GEL 15 GRAM TUBE PO (11:00)
[2017-12-15] MEDS: LOSARTAN 50 MG TAB PO ×2 (11:05→21:32)
[2017-12-15] MEDS: POTASSIUM CHLORIDE (SR) 10 MEQ TAB PO (11:06)
[2017-12-15] MEDS: SEVELAMER CARBONATE 0.8 GM PKT PO ×2 (11:06→17:26)
[2017-12-15] MEDS: PANTOPRAZOLE (EC) 40 MG TAB PO (11:15)
[2017-12-15] MEDS: Insulin NOVOLOG SS MILD Algorithm (SS with meals and bedtime) SC ×2 (12:41→17:24)
[2017-12-15] MEDS: METOPROLOL (XL) 100 MG TAB PO ×2 (12:42→21:32)
[2017-12-15] MEDS: morphine 10 MG INJ IM (13:15)
[2017-12-15] MEDS ORDERED: HEPARIN 5,000 UNIT/0.5 ML VIAL ×2 (14:12→20:15)
[2017-12-15] MEDS: ONDANSETRON 4 MG INJ IV ×2 (14:15→21:38)
[2017-12-15] MEDS: HEPARIN 5,000 UNIT/1 ML VIAL SC ×2 (14:17→21:36)
[2017-12-15] MEDS: EPOETIN 10000 UNITS/1 ML INJ (ESRD) SC (14:22)
[2017-12-15] MEDS ORDERED: DIPHENHYDRAMINE 25 MG CAP PO (21:30)
[2017-12-15] MEDS: INSULIN ASPART [NOVOLOG] 3 ML PEN SC (21:35)
[2017-12-15] MEDS: INSULIN GLARGINE [LANTus] (100 UNITS/ML) SYG SC (21:36)
[2017-12-15] MEDS: morphine 2 MG INJ IV (21:37)
[2017-12-15] MEDS: DIPHENHYDRAMINE 50 MG INJ IV (22:50)
[2017-12-16] MEDS: ACCU-CHEK XX (02:00)
[2017-12-16] MEDS: PANTOPRAZOLE (EC) 40 MG TAB PO (05:37)
[2017-12-16 06:02] LABS: ADD MAN DIFF? NO
[2017-12-16 06:08] LABS: BASOPHILS % 0.8 % (0.0-2.0); EOSINOPHILS # 0.1 10^3/ul (0.0-0.5); EOSINOPHILS % 1.7 % (0.0-7.0); HEMATOCRIT 31.9 % (37.0-47.0); HEMOGLOBIN 9.7 g/dl (12.0-16.0); LYMPHOCYTES % 21.8 % (15.0-51.0); MEAN CORPUSCULAR HEMOGLOBIN 32.1 pg (29.0-33.0); MEAN CORPUSCULAR HGB CONC 30.4 g/dl (32.0-37.0); MEAN CORPUSCULAR VOLUME 105.6 fl (82.0-101.0); MONOCYTE # 0.6 10^3/ul (0.3-0.9); MONOCYTES % 12.2 % (0.0-11.0); NEUTROPHILS % 62.9 % (39.0-77.0); NUCLEATED RED BLOOD CELLS # 0.1 10^3/ul (0.0-0.0); NUCLEATED RED BLOOD CELLS% 2.7 /100WBC (0.0-0.0); PLATELET COUNT 187 10^3/UL (140-415); RED BLOOD COUNT 3.02 10^6/ul (4.20-5.40); RED CELL DISTRIBUTION WIDTH 20.1 % (11.5-14.5)
[2017-12-16 06:08] LABS: WHITE BLOOD COUNT 4.8 10^3/ul (4.8-10.8)
[2017-12-16 06:33] LABS: ANION GAP 13 (5-13); BLOOD UREA NITROGEN 31 mg/dl (7-20); CALCIUM 8.8 mg/dl (8.4-10.2); CARBON DIOXIDE 27 mmol/L (21-31); CHLORIDE 99 mmol/L (97-110); CREATININE 4.17 mg/dl (0.44-1.00); Estimated GFR 13 mL/min (>60); GLUCOSE 74 mg/dl (70-220); PHOSPHORUS 5.1 mg/dl (2.5-4.9); POTASSIUM 4.8 mmol/L (3.5-5.1); SODIUM 139 mmol/L (135-144)
[2017-12-16] MEDS: SEVELAMER CARBONATE 0.8 GM PKT PO ×4 (07:35→18:36)
[2017-12-16] MEDS: INSULIN ASPART [NOVOLOG] 3 ML PEN SC ×4 (08:00→20:36)
[2017-12-16] MEDS ORDERED: HEPARIN 5,000 UNIT/0.5 ML VIAL ×2 (08:26→20:12)
[2017-12-16] MEDS: METOPROLOL (XL) 100 MG TAB PO ×3 (08:47→20:35)
[2017-12-16] MEDS: LOSARTAN 50 MG TAB PO ×3 (08:47→20:35)
[2017-12-16] MEDS: HEPARIN 5,000 UNIT/1 ML VIAL SC ×2 (08:49→20:38)
[2017-12-16] MEDS: ONDANSETRON 4 MG INJ IV ×2 (09:00→20:32)
[2017-12-16] MEDS: PIPER-TAZO 2.25 GM (PMX) 50 ML IVPB ×2 (13:21→22:15)
[2017-12-16] MEDS ORDERED: PENDING SANTYL ORDER FOR WOUND CARE XX (18:00)
[2017-12-16] MEDS: DIPHENHYDRAMINE 50 MG INJ IV (20:32)
[2017-12-16] MEDS: INSULIN GLARGINE [LANTus] (100 UNITS/ML) SYG SC (20:37)
[2017-12-17] MEDS: ONDANSETRON 4 MG INJ IV ×3 (01:07→23:57)
[2017-12-17] MEDS: morphine 2 MG INJ IV ×3 (01:08→23:57)
[2017-12-17] MEDS: ACCU-CHEK XX (02:00)
[2017-12-17] MEDS: PIPER-TAZO 2.25 GM (PMX) 50 ML IVPB ×2 (06:00→17:38)
[2017-12-17] MEDS: PANTOPRAZOLE (EC) 40 MG TAB PO (06:37)
[2017-12-17] MEDS: INSULIN ASPART [NOVOLOG] 3 ML PEN SC ×6 (08:00→21:09)
[2017-12-17] MEDS ORDERED: HEPARIN 5,000 UNIT/0.5 ML VIAL ×2 (08:25→21:03)
[2017-12-17] MEDS: SEVELAMER CARBONATE 0.8 GM PKT PO ×3 (08:55→17:27)
[2017-12-17] MEDS: METOPROLOL (XL) 100 MG TAB PO ×2 (08:57→21:07)
[2017-12-17] MEDS: LOSARTAN 50 MG TAB PO ×2 (08:57→21:06)
[2017-12-17] MEDS: HEPARIN 5,000 UNIT/1 ML VIAL SC ×2 (08:58→21:10)
[2017-12-17] MEDS: COLLAGENASE 5 GM (UD JAR) TOP (08:59)
[2017-12-17] MEDS: CLOPIDOGREL 75 MG TAB PO (09:01)
[2017-12-17] MEDS: SODIUM HYPOCHLORITE (1/40) 1 APPLIC BTL IRR (11:52)
[2017-12-17] MEDS: ERTAPENEM SODIUM 0.5 GM in SOD CHLORIDE 0.9% 100 ML IVPB (13:00)
[2017-12-17] MEDS: CLINDAMYCIN 600 MG/D5W (PMX) 50 ML IVPB ×2 (13:00→17:38)
[2017-12-17 13:44] LABS: ADD MAN DIFF? NO
[2017-12-17 13:45] LABS: WHITE BLOOD COUNT 5.7 10^3/ul (4.8-10.8)
[2017-12-17 13:45] LABS: BASOPHILS % 0.7 % (0.0-2.0); EOSINOPHILS # 0.1 10^3/ul (0.0-0.5); EOSINOPHILS % 1.7 % (0.0-7.0); HEMATOCRIT 30.7 % (37.0-47.0); HEMOGLOBIN 9.6 g/dl (12.0-16.0); LYMPHOCYTES # 1.3 10^3/ul (0.8-2.9); MEAN CORPUSCULAR HEMOGLOBIN 32.9 pg (29.0-33.0); MEAN CORPUSCULAR HGB CONC 31.3 g/dl (32.0-37.0); MEAN CORPUSCULAR VOLUME 105.1 fl (82.0-101.0); MONOCYTE # 0.7 10^3/ul (0.3-0.9); MONOCYTES % 12.4 % (0.0-11.0); NEUTROPHIL # 3.6 10^3/ul (1.6-7.5); NEUTROPHILS % 62.7 % (39.0-77.0); NUCLEATED RED BLOOD CELLS # 0.1 10^3/ul (0.0-0.0); NUCLEATED RED BLOOD CELLS% 1.9 /100WBC (0.0-0.0); PLATELET COUNT 179 10^3/UL (140-415); RED BLOOD COUNT 2.92 10^6/ul (4.20-5.40); RED CELL DISTRIBUTION WIDTH 20.2 % (11.5-14.5)
[2017-12-17 14:04] LABS: ANION GAP 17 (5-13); BLOOD UREA NITROGEN 41 mg/dl (7-20); CALCIUM 8.8 mg/dl (8.4-10.2); CARBON DIOXIDE 22 mmol/L (21-31); CHLORIDE 98 mmol/L (97-110); CREATININE 5.42 mg/dl (0.44-1.00); Estimated GFR 10 mL/min (>60); GLUCOSE 185 mg/dl (70-220); IRON 100 ug/dl (35-150); POTASSIUM 5.2 mmol/L (3.5-5.1); SODIUM 137 mmol/L (135-144)
[2017-12-17 14:05] LABS: C-REACTIVE PROTEIN 4.7 mg/dl (0.0-0.9)
[2017-12-17 14:14] LABS: % IRON SATURATION 57 % SAT (22-52); TOTAL IRON BINDING CAPACITY 175 ug/dl (241-421)
[2017-12-17 14:33] LABS: HEPATITIS B SURFACE ANTIGEN NEGATIVE (NEGATIVE)
[2017-12-17 15:34] LABS: ERYTHROCYTE SEDIMENTATION RATE 35 mm/Hr (0-30)
[2017-12-17] MEDS: ATORVASTATIN 40 MG TAB PO (21:06)
[2017-12-17] MEDS: INSULIN GLARGINE [LANTus] (100 UNITS/ML) SYG SC (21:10)
[2017-12-17] MEDS: DIPHENHYDRAMINE 50 MG INJ IV (21:15)
[2017-12-18] MEDS: CLINDAMYCIN 600 MG/D5W (PMX) 50 ML IVPB ×3 (00:42→12:40)
[2017-12-18] MEDS: ACCU-CHEK XX (02:00)
[2017-12-18] MEDS: PIPER-TAZO 2.25 GM (PMX) 50 ML IVPB (05:55)
[2017-12-18] MEDS: DIPHENHYDRAMINE 50 MG INJ IV ×2 (06:05→15:01)
[2017-12-18] MEDS: PANTOPRAZOLE (EC) 40 MG TAB PO (06:05)
[2017-12-18 06:06] LABS: ADD MAN DIFF? NO
[2017-12-18 06:09] LABS: BASOPHILS % 0.5 % (0.0-2.0); EOSINOPHILS # 0.1 10^3/ul (0.0-0.5); EOSINOPHILS % 1.6 % (0.0-7.0); HEMATOCRIT 32.1 % (37.0-47.0); HEMOGLOBIN 9.7 g/dl (12.0-16.0); LYMPHOCYTES # 0.9 10^3/ul (0.8-2.9); LYMPHOCYTES % 16.5 % (15.0-51.0); MEAN CORPUSCULAR HGB CONC 30.2 g/dl (32.0-37.0); MEAN CORPUSCULAR VOLUME 105.9 fl (82.0-101.0); MEAN PLATELET VOLUME 11.4 fl (7.4-10.4); MONOCYTE # 0.8 10^3/ul (0.3-0.9); MONOCYTES % 13.8 % (0.0-11.0); NEUTROPHIL # 3.7 10^3/ul (1.6-7.5); NEUTROPHILS % 67.2 % (39.0-77.0); NUCLEATED RED BLOOD CELLS% 0.7 /100WBC (0.0-0.0); PLATELET COUNT 182 10^3/UL (140-415); RED BLOOD COUNT 3.03 10^6/ul (4.20-5.40); RED CELL DISTRIBUTION WIDTH 20.4 % (11.5-14.5)
[2017-12-18 06:09] LABS: WHITE BLOOD COUNT 5.6 10^3/ul (4.8-10.8)
[2017-12-18 06:49] LABS: ANION GAP 14 (5-13); BLOOD UREA NITROGEN 25 mg/dl (7-20); CALCIUM 8.4 mg/dl (8.4-10.2); CARBON DIOXIDE 26 mmol/L (21-31); CHLORIDE 100 mmol/L (97-110); CREATININE 3.88 mg/dl (0.44-1.00); Estimated GFR 14 mL/min (>60); GLUCOSE 181 mg/dl (70-220); MAGNESIUM 1.9 mg/dl (1.7-2.5); PHOSPHORUS 4.4 mg/dl (2.5-4.9); SODIUM 140 mmol/L (135-144)
[2017-12-18] MEDS: SEVELAMER CARBONATE 0.8 GM PKT PO ×3 (07:35→17:35)
[2017-12-18] MEDS: INSULIN ASPART [NOVOLOG] 3 ML PEN SC ×7 (08:00→21:31)
[2017-12-18] MEDS ORDERED: HEPARIN 5,000 UNIT/0.5 ML VIAL ×2 (08:19→20:22)
[2017-12-18] MEDS: LOSARTAN 50 MG TAB PO ×2 (08:39→21:27)
[2017-12-18] MEDS: METOPROLOL (XL) 100 MG TAB PO ×2 (08:40→22:49)
[2017-12-18] MEDS: COLLAGENASE 5 GM (UD JAR) TOP ×2 (08:41→17:03)
[2017-12-18] MEDS: HEPARIN 5,000 UNIT/1 ML VIAL SC ×2 (08:41→21:29)
[2017-12-18] MEDS: SODIUM HYPOCHLORITE (1/40) 1 APPLIC BTL IRR ×2 (08:47→17:02)
[2017-12-18] MEDS: CLOPIDOGREL 75 MG TAB PO (08:54)
[2017-12-18] MEDS: ONDANSETRON 4 MG INJ IV ×2 (09:04→22:49)
[2017-12-18] MEDS: morphine 2 MG INJ IV ×2 (09:04→22:46)
[2017-12-18] MEDS ORDERED: GENTAMICIN IV PER PHARMACY XX (13:30)
[2017-12-18] MEDS: EPOETIN 10000 UNITS/1 ML INJ (ESRD) SC (14:03)
[2017-12-18] MEDS: GENTAMICIN 100 MG/50 ML NS IVPB (14:59)
[2017-12-18] MEDS: LINEZOLID 600 MG/D5W (PMX) 300 ML IVPB (21:00)
[2017-12-18] MEDS: ATORVASTATIN 40 MG TAB PO ×2 (21:26→21:42)
[2017-12-18] MEDS: INSULIN GLARGINE [LANTus] (100 UNITS/ML) SYG SC (21:30)
[2017-12-19] MEDS: DIPHENHYDRAMINE 50 MG INJ IV ×3 (00:45→20:23)
[2017-12-19] MEDS: ACCU-CHEK XX (02:00)
[2017-12-19] MEDS: PANTOPRAZOLE (EC) 40 MG TAB PO (06:05)
[2017-12-19] MEDS: INSULIN ASPART [NOVOLOG] 3 ML PEN SC ×7 (08:00→21:00)
[2017-12-19] MEDS: SEVELAMER CARBONATE 0.8 GM PKT PO ×3 (08:31→17:52)
[2017-12-19] MEDS ORDERED: HEPARIN 5,000 UNIT/0.5 ML VIAL ×2 (08:48→20:04)
[2017-12-19] MEDS: METOPROLOL (XL) 100 MG TAB PO ×2 (09:00→20:20)
[2017-12-19] MEDS: LINEZOLID 600 MG/D5W (PMX) 300 ML IVPB (09:00)
[2017-12-19] MEDS: LOSARTAN 50 MG TAB PO ×2 (09:00→20:19)
[2017-12-19] MEDS: HEPARIN 5,000 UNIT/1 ML VIAL SC ×2 (09:00→20:22)
[2017-12-19] MEDS: COLLAGENASE 5 GM (UD JAR) TOP (09:00)
[2017-12-19] MEDS: SODIUM HYPOCHLORITE (1/40) 1 APPLIC BTL IRR (09:00)
[2017-12-19] MEDS: CLOPIDOGREL 75 MG TAB PO (09:31)
[2017-12-19] MEDS: morphine 2 MG INJ IV (12:11)
[2017-12-19] MEDS: EPOETIN 10000 UNITS/1 ML INJ (ESRD) SC (20:18)
[2017-12-19] MEDS: ZYVOX 600 MG TAB PO (21:00)
[2017-12-19] MEDS: INSULIN GLARGINE [LANTus] (100 UNITS/ML) SYG SC (21:53)
[2017-12-20] MEDS: ACCU-CHEK XX (01:03)
[2017-12-20] MEDS: DIPHENHYDRAMINE 50 MG INJ IV ×3 (02:35→20:23)
[2017-12-20] MEDS: ONDANSETRON 4 MG INJ IV ×3 (03:47→16:27)
[2017-12-20] MEDS: morphine 2 MG INJ IV ×3 (03:47→16:33)
[2017-12-20] MEDS: PANTOPRAZOLE (EC) 40 MG TAB PO (06:03)
[2017-12-20 06:21] LABS: ADD MAN DIFF? NO
[2017-12-20 06:31] LABS: WHITE BLOOD COUNT 5.2 10^3/ul (4.8-10.8)
[2017-12-20 06:31] LABS: BASOPHILS % 0.6 % (0.0-2.0); EOSINOPHILS % 0.8 % (0.0-7.0); HEMATOCRIT 29.9 % (37.0-47.0); HEMOGLOBIN 9.1 g/dl (12.0-16.0); LYMPHOCYTES # 0.9 10^3/ul (0.8-2.9); LYMPHOCYTES % 16.3 % (15.0-51.0); MEAN CORPUSCULAR HEMOGLOBIN 32.5 pg (29.0-33.0); MEAN CORPUSCULAR HGB CONC 30.4 g/dl (32.0-37.0); MEAN CORPUSCULAR VOLUME 106.8 fl (82.0-101.0); MEAN PLATELET VOLUME 11.1 fl (7.4-10.4); MONOCYTE # 0.7 10^3/ul (0.3-0.9); MONOCYTES % 12.4 % (0.0-11.0); NEUTROPHIL # 3.6 10^3/ul (1.6-7.5); NEUTROPHILS % 68.9 % (39.0-77.0); NUCLEATED RED BLOOD CELLS% 0.6 /100WBC (0.0-0.0); PLATELET COUNT 168 10^3/UL (140-415); RED CELL DISTRIBUTION WIDTH 20.9 % (11.5-14.5)
[2017-12-20] MEDS: INSULIN ASPART [NOVOLOG] 3 ML PEN SC ×7 (07:35→20:26)
[2017-12-20] MEDS: SEVELAMER CARBONATE 0.8 GM PKT PO ×3 (08:33→17:51)
[2017-12-20] MEDS ORDERED: HEPARIN 5,000 UNIT/0.5 ML VIAL ×2 (08:34→20:13)
[2017-12-20] MEDS: LOSARTAN 50 MG TAB PO ×2 (08:38→20:21)
[2017-12-20] MEDS: CLOPIDOGREL 75 MG TAB PO (08:38)
[2017-12-20] MEDS: ZYVOX 600 MG TAB PO ×2 (08:38→08:56)
[2017-12-20] MEDS: METOPROLOL (XL) 100 MG TAB PO ×2 (08:38→20:22)
[2017-12-20] MEDS: HEPARIN 5,000 UNIT/1 ML VIAL SC ×2 (08:45→20:27)
[2017-12-20] MEDS: SODIUM HYPOCHLORITE (1/40) 1 APPLIC BTL IRR (09:00)
[2017-12-20] MEDS: COLLAGENASE 5 GM (UD JAR) TOP (09:00)
[2017-12-20] MEDS: GENTAMICIN 60 MG in SOD CHLORIDE 0.9% 50 ML IVPB (10:14)
[2017-12-20] MEDS: ATORVASTATIN 40 MG TAB PO (20:21)
[2017-12-20] MEDS: INSULIN GLARGINE [LANTus] (100 UNITS/ML) SYG SC (20:24)
[2017-12-21] MEDS: ACCU-CHEK XX (02:00)
[2017-12-21] MEDS: DIPHENHYDRAMINE 50 MG INJ IV ×3 (04:18→23:39)
[2017-12-21] MEDS: PANTOPRAZOLE (EC) 40 MG TAB PO (05:21)
[2017-12-21 06:20] LABS: ADD MAN DIFF? NO
[2017-12-21 06:30] LABS: WHITE BLOOD COUNT 5.4 10^3/ul (4.8-10.8)
[2017-12-21 06:30] LABS: BASOPHILS % 0.6 % (0.0-2.0); EOSINOPHILS # 0.1 10^3/ul (0.0-0.5); EOSINOPHILS % 1.7 % (0.0-7.0); HEMATOCRIT 33.3 % (37.0-47.0); HEMOGLOBIN 10.4 g/dl (12.0-16.0); LYMPHOCYTES # 0.9 10^3/ul (0.8-2.9); LYMPHOCYTES % 16.4 % (15.0-51.0); MEAN CORPUSCULAR HEMOGLOBIN 32.9 pg (29.0-33.0); MEAN CORPUSCULAR HGB CONC 31.2 g/dl (32.0-37.0); MEAN CORPUSCULAR VOLUME 105.4 fl (82.0-101.0); MONOCYTE # 0.9 10^3/ul (0.3-0.9); MONOCYTES % 16.6 % (0.0-11.0); NEUTROPHIL # 3.4 10^3/ul (1.6-7.5); NUCLEATED RED BLOOD CELLS% 0.7 /100WBC (0.0-0.0); PLATELET COUNT 201 10^3/UL (140-415); RED BLOOD COUNT 3.16 10^6/ul (4.20-5.40)
[2017-12-21] MEDS: SEVELAMER CARBONATE 0.8 GM PKT PO ×3 (07:35→17:10)
[2017-12-21] MEDS: INSULIN ASPART [NOVOLOG] 3 ML PEN SC ×7 (08:00→20:45)
[2017-12-21] MEDS: METOPROLOL (XL) 100 MG TAB PO ×2 (09:00→20:44)
[2017-12-21 11:07] LABS: ANION GAP 13 (5-13); BLOOD UREA NITROGEN 37 mg/dl (7-20); CALCIUM 8.8 mg/dl (8.4-10.2); CARBON DIOXIDE 23 mmol/L (21-31); CHLORIDE 100 mmol/L (97-110); Estimated GFR 10 mL/min (>60); GLUCOSE 108 mg/dl (70-220); MAGNESIUM 1.9 mg/dl (1.7-2.5); PHOSPHORUS 6.2 mg/dl (2.5-4.9); POTASSIUM 5.1 mmol/L (3.5-5.1); SODIUM 136 mmol/L (135-144)
[2017-12-21] MEDS: CLOPIDOGREL 75 MG TAB PO (14:08)
[2017-12-21] MEDS: LOSARTAN 50 MG TAB PO ×2 (14:09→20:43)
[2017-12-21] MEDS ORDERED: HEPARIN 5,000 UNIT/0.5 ML VIAL ×2 (14:13→20:30)
[2017-12-21] MEDS: HEPARIN 5,000 UNIT/1 ML VIAL SC ×2 (14:14→20:39)
[2017-12-21] MEDS: morphine 2 MG INJ IV ×2 (15:38→23:39)
[2017-12-21] MEDS: ONDANSETRON 4 MG INJ IV ×2 (15:41→23:54)
[2017-12-21] MEDS: SODIUM HYPOCHLORITE (1/40) 1 APPLIC BTL IRR (16:16)
[2017-12-21] MEDS: COLLAGENASE 5 GM (UD JAR) TOP (16:16)
[2017-12-21] MEDS: GENTAMICIN 60 MG in SOD CHLORIDE 0.9% 50 ML IVPB (16:55)
[2017-12-21] MEDS: EPOETIN 10000 UNITS/1 ML INJ (ESRD) SC (17:12)
[2017-12-21] MEDS: ATORVASTATIN 40 MG TAB PO (20:35)
[2017-12-21] MEDS: INSULIN GLARGINE [LANTus] (100 UNITS/ML) SYG SC (20:38)
[2017-12-22] MEDS: ACCU-CHEK XX ×2 (02:00→23:54)
[2017-12-22] MEDS: DIPHENHYDRAMINE 50 MG INJ IV ×2 (06:11→17:57)
[2017-12-22] MEDS: PANTOPRAZOLE (EC) 40 MG TAB PO (06:11)
[2017-12-22] MEDS ORDERED: HEPARIN 5,000 UNIT/0.5 ML VIAL ×2 (07:43→20:07)
[2017-12-22] MEDS: INSULIN ASPART [NOVOLOG] 3 ML PEN SC ×7 (08:00→21:00)
[2017-12-22] MEDS: SEVELAMER CARBONATE 0.8 GM PKT PO ×3 (08:03→17:26)
[2017-12-22] MEDS: METOPROLOL (XL) 100 MG TAB PO ×2 (08:03→21:34)
[2017-12-22] MEDS: LOSARTAN 50 MG TAB PO ×2 (08:03→21:00)
[2017-12-22] MEDS: CLOPIDOGREL 75 MG TAB PO (08:03)
[2017-12-22] MEDS: HEPARIN 5,000 UNIT/1 ML VIAL SC ×2 (08:05→21:34)
[2017-12-22] MEDS: ONDANSETRON 4 MG INJ IV (09:44)
[2017-12-22] MEDS: morphine 2 MG INJ IV (09:47)
[2017-12-22] MEDS: ATORVASTATIN 40 MG TAB PO (21:00)
[2017-12-22] MEDS: INSULIN GLARGINE [LANTus] (100 UNITS/ML) SYG SC (21:33)
[2017-12-22] MEDS: SODIUM HYPOCHLORITE (1/40) 1 APPLIC BTL IRR (23:00)
[2017-12-22] MEDS: COLLAGENASE 5 GM (UD JAR) TOP (23:00)
[2017-12-23] MEDS: DIPHENHYDRAMINE 50 MG INJ IV ×3 (00:28→22:00)
[2017-12-23] MEDS: morphine 2 MG INJ IV ×2 (03:37→23:43)
[2017-12-23] MEDS: ONDANSETRON 4 MG INJ IV (03:37)
[2017-12-23] MEDS: PANTOPRAZOLE (EC) 40 MG TAB PO (06:32)
[2017-12-23] MEDS: INSULIN ASPART [NOVOLOG] 3 ML PEN SC ×7 (07:35→21:00)
[2017-12-23] MEDS: SEVELAMER CARBONATE 0.8 GM PKT PO ×3 (07:35→18:06)
[2017-12-23] MEDS: DEXTROSE 50% 50 ML SYRINGE IV (08:09)
[2017-12-23] MEDS ORDERED: HEPARIN 5,000 UNIT/0.5 ML VIAL ×2 (08:22→19:50)
[2017-12-23 08:48] LABS: GLUCOSE 47 mg/dl (70-220)
[2017-12-23] MEDS: SODIUM HYPOCHLORITE (1/40) 1 APPLIC BTL IRR (09:00)
[2017-12-23] MEDS: COLLAGENASE 5 GM (UD JAR) TOP (09:00)
[2017-12-23] MEDS: LOSARTAN 50 MG TAB PO ×2 (10:01→20:06)
[2017-12-23] MEDS: HEPARIN 5,000 UNIT/1 ML VIAL SC ×2 (10:04→20:13)
[2017-12-23] MEDS: CLOPIDOGREL 75 MG TAB PO (10:04)
[2017-12-23] MEDS: METOPROLOL (XL) 100 MG TAB PO ×2 (10:06→20:07)
[2017-12-23] MEDS: ATORVASTATIN 40 MG TAB PO (20:06)
[2017-12-23] MEDS: INSULIN GLARGINE [LANTus] (100 UNITS/ML) SYG SC (20:48)
[2017-12-24] MEDS: ONDANSETRON 4 MG INJ IV ×2 (00:06→20:39)
[2017-12-24] MEDS: ACCU-CHEK XX (02:00)
[2017-12-24] MEDS: DIPHENHYDRAMINE 50 MG INJ IV ×2 (04:05→13:43)
[2017-12-24] MEDS: PANTOPRAZOLE (EC) 40 MG TAB PO (05:25)
[2017-12-24 05:57] LABS: ADD MAN DIFF? NO
[2017-12-24 06:05] LABS: BASOPHILS % 0.8 % (0.0-2.0); EOSINOPHILS # 0.1 10^3/ul (0.0-0.5); EOSINOPHILS % 2.1 % (0.0-7.0); HEMATOCRIT 35.2 % (37.0-47.0); LYMPHOCYTES # 1.3 10^3/ul (0.8-2.9); LYMPHOCYTES % 25.2 % (15.0-51.0); MEAN CORPUSCULAR HEMOGLOBIN 33.2 pg (29.0-33.0); MEAN CORPUSCULAR HGB CONC 31.3 g/dl (32.0-37.0); MEAN CORPUSCULAR VOLUME 106.3 fl (82.0-101.0); MEAN PLATELET VOLUME 11.3 fl (7.4-10.4); MONOCYTE # 0.8 10^3/ul (0.3-0.9); MONOCYTES % 16.2 % (0.0-11.0); NEUTROPHIL # 2.9 10^3/ul (1.6-7.5); NEUTROPHILS % 54.9 % (39.0-77.0); NUCLEATED RED BLOOD CELLS% 0.4 /100WBC (0.0-0.0); PLATELET COUNT 228 10^3/UL (140-415); RED BLOOD COUNT 3.31 10^6/ul (4.20-5.40); RED CELL DISTRIBUTION WIDTH 20.8 % (11.5-14.5)
[2017-12-24 06:05] LABS: WHITE BLOOD COUNT 5.2 10^3/ul (4.8-10.8)
[2017-12-24 06:29] LABS: ANION GAP 15 (5-13); BLOOD UREA NITROGEN 42 mg/dl (7-20); CALCIUM 8.7 mg/dl (8.4-10.2); CARBON DIOXIDE 22 mmol/L (21-31); CHLORIDE 102 mmol/L (97-110); CREATININE 6.38 mg/dl (0.44-1.00); Estimated GFR 8 mL/min (>60); MAGNESIUM 2.2 mg/dl (1.7-2.5); PHOSPHORUS 7.7 mg/dl (2.5-4.9); POTASSIUM 4.5 mmol/L (3.5-5.1); SODIUM 139 mmol/L (135-144)
[2017-12-24 06:33] LABS: GLUCOSE 49 mg/dl (70-220)
[2017-12-24] MEDS: INSULIN ASPART [NOVOLOG] 3 ML PEN SC ×7 (07:35→21:00)
[2017-12-24] MEDS ORDERED: HEPARIN 5,000 UNIT/0.5 ML VIAL ×2 (08:14→20:18)
[2017-12-24] MEDS: COLLAGENASE 5 GM (UD JAR) TOP (09:00)
[2017-12-24] MEDS: LOSARTAN 50 MG TAB PO ×2 (09:00→21:05)
[2017-12-24] MEDS: SODIUM HYPOCHLORITE (1/40) 1 APPLIC BTL IRR (09:00)
[2017-12-24] MEDS: METOPROLOL (XL) 100 MG TAB PO ×2 (09:00→21:04)
[2017-12-24] MEDS: CLOPIDOGREL 75 MG TAB PO (10:14)
[2017-12-24] MEDS: HEPARIN 5,000 UNIT/1 ML VIAL SC ×2 (10:14→21:07)
[2017-12-24] MEDS: SEVELAMER CARBONATE 0.8 GM PKT PO ×2 (13:38→17:35)
[2017-12-24] MEDS: GENTAMICIN 60 MG in SOD CHLORIDE 0.9% 50 ML IVPB (16:36)
[2017-12-24] MEDS: morphine 2 MG INJ IV ×2 (16:56→20:28)
[2017-12-24] MEDS: ATORVASTATIN 40 MG TAB PO (21:04)
[2017-12-24] MEDS: INSULIN GLARGINE [LANTus] (100 UNITS/ML) SYG SC (21:08)
[2017-12-25] MEDS: DEXTROSE 5%-0.45% NACL 1,000 ML IV ×2 (00:05→20:00)
[2017-12-25] MEDS: INSULIN ASPART [NOVOLOG] 3 ML PEN SC ×8 (01:44→20:17)
[2017-12-25] MEDS: DIPHENHYDRAMINE 50 MG INJ IV ×2 (01:46→22:08)
[2017-12-25] MEDS: morphine 2 MG INJ IV ×2 (05:31→22:53)
[2017-12-25] MEDS: ONDANSETRON 4 MG INJ IV ×2 (05:37→22:52)
[2017-12-25] MEDS: PANTOPRAZOLE (EC) 40 MG TAB PO (06:00)
[2017-12-25] MEDS: SEVELAMER CARBONATE 0.8 GM PKT PO ×3 (07:35→19:49)
[2017-12-25] MEDS: HEPARIN 5,000 UNIT/1 ML VIAL SC ×2 (09:00→20:14)
[2017-12-25] MEDS: LOSARTAN 50 MG TAB PO ×2 (09:00→20:12)
[2017-12-25] MEDS: CLOPIDOGREL 75 MG TAB PO (09:00)
[2017-12-25] MEDS: METOPROLOL (XL) 100 MG TAB PO ×2 (09:00→20:12)
[2017-12-25] MEDS: ACCU-CHEK XX ×5 (09:00→22:07)
[2017-12-25] MEDS ORDERED: HEPARIN 1000 UNITS/NS (A-LINE) 1,000 ML (13:16)
[2017-12-25] MEDS ORDERED: MIDAZOLAM 1 MG/ML 2 ML INJ (13:16)
[2017-12-25] MEDS ORDERED: FENTAnyl 50 MCG/ML VIAL (13:16)
[2017-12-25] MEDS ORDERED: LIDOCAINE 2% (MDV) 20 ML INJ (13:16)
[2017-12-25] MEDS ORDERED: HEPARIN 1000 UNITS/ML 10 ML INJ (14:08)
[2017-12-25] MEDS ORDERED: IODIXANOL LOCM 100 ML BTL ×2 (15:34→16:16)
[2017-12-25] MEDS: COLLAGENASE 5 GM (UD JAR) TOP (19:48)
[2017-12-25] MEDS: SODIUM HYPOCHLORITE (1/40) 1 APPLIC BTL IRR (19:48)
[2017-12-25] MEDS ORDERED: HEPARIN 5,000 UNIT/0.5 ML VIAL (20:01)
[2017-12-25] MEDS: ATORVASTATIN 40 MG TAB PO ×3 (20:09→22:07)
[2017-12-25] MEDS: INSULIN GLARGINE [LANTus] (100 UNITS/ML) SYG SC (20:16)
[2017-12-26] MEDS: PANTOPRAZOLE (EC) 40 MG TAB PO (05:52)
[2017-12-26] MEDS ORDERED: HEPARIN 5,000 UNIT/0.5 ML VIAL ×2 (07:51→20:23)
[2017-12-26] MEDS: INSULIN ASPART [NOVOLOG] 3 ML PEN SC ×7 (07:55→20:35)
[2017-12-26] MEDS: SEVELAMER CARBONATE 0.8 GM PKT PO ×3 (07:55→17:55)
[2017-12-26] MEDS: CLOPIDOGREL 75 MG TAB PO (08:10)
[2017-12-26] MEDS: LOSARTAN 50 MG TAB PO ×2 (08:11→20:29)
[2017-12-26] MEDS: METOPROLOL (XL) 100 MG TAB PO ×2 (08:12→20:28)
[2017-12-26] MEDS: SODIUM HYPOCHLORITE (1/40) 1 APPLIC BTL IRR (08:12)
[2017-12-26] MEDS: COLLAGENASE 5 GM (UD JAR) TOP (08:12)
[2017-12-26] MEDS: HEPARIN 5,000 UNIT/1 ML VIAL SC ×2 (08:17→20:29)
[2017-12-26] MEDS: GENTAMICIN 60 MG in SOD CHLORIDE 0.9% 50 ML IVPB (17:20)
[2017-12-26] MEDS: DIPHENHYDRAMINE 50 MG INJ IV (20:29)
[2017-12-26] MEDS: INSULIN GLARGINE [LANTus] (100 UNITS/ML) SYG SC (20:30)
[2017-12-26] MEDS: ATORVASTATIN 40 MG TAB PO (20:36)
[2017-12-27] MEDS: ACCU-CHEK XX (02:09)
[2017-12-27] MEDS: DIPHENHYDRAMINE 50 MG INJ IV ×3 (02:09→19:40)
[2017-12-27] MEDS: PANTOPRAZOLE (EC) 40 MG TAB PO (05:12)
[2017-12-27] MEDS: SEVELAMER CARBONATE 0.8 GM PKT PO ×3 (07:55→17:53)
[2017-12-27] MEDS: INSULIN ASPART [NOVOLOG] 3 ML PEN SC ×7 (07:55→20:35)
[2017-12-27 08:10] LABS: ADD MAN DIFF? NO
[2017-12-27 08:13] LABS: BASOPHILS % 0.6 % (0.0-2.0); EOSINOPHILS # 0.1 10^3/ul (0.0-0.5); EOSINOPHILS % 1.2 % (0.0-7.0); HEMATOCRIT 29.8 % (37.0-47.0); HEMOGLOBIN 9.3 g/dl (12.0-16.0); LYMPHOCYTES % 16.1 % (15.0-51.0); MEAN CORPUSCULAR HEMOGLOBIN 33.8 pg (29.0-33.0); MEAN CORPUSCULAR HGB CONC 31.2 g/dl (32.0-37.0); MEAN CORPUSCULAR VOLUME 108.4 fl (82.0-101.0); MEAN PLATELET VOLUME 10.9 fl (7.4-10.4); MONOCYTES % 15.4 % (0.0-11.0); NEUTROPHIL # 4.3 10^3/ul (1.6-7.5); NEUTROPHILS % 66.2 % (39.0-77.0); PLATELET COUNT 207 10^3/UL (140-415); RED BLOOD COUNT 2.75 10^6/ul (4.20-5.40); RED CELL DISTRIBUTION WIDTH 20.3 % (11.5-14.5)
[2017-12-27 08:13] LABS: WHITE BLOOD COUNT 6.4 10^3/ul (4.8-10.8)
[2017-12-27] MEDS: SODIUM HYPOCHLORITE (1/40) 1 APPLIC BTL IRR (08:34)
[2017-12-27] MEDS: COLLAGENASE 5 GM (UD JAR) TOP (08:34)
[2017-12-27 08:37] LABS: ANION GAP 13 (5-13); BLOOD UREA NITROGEN 22 mg/dl (7-20); CALCIUM 8.2 mg/dl (8.4-10.2); CARBON DIOXIDE 26 mmol/L (21-31); CHLORIDE 100 mmol/L (97-110); CREATININE 4.17 mg/dl (0.44-1.00); Estimated GFR 13 mL/min (>60); GLUCOSE 87 mg/dl (70-220); MAGNESIUM 1.9 mg/dl (1.7-2.5); POTASSIUM 3.7 mmol/L (3.5-5.1); SODIUM 139 mmol/L (135-144)
[2017-12-27] MEDS: IODIXANOL LOCM 100 ML BTL (08:43)
[2017-12-27] MEDS: SOD CHLORIDE 0.9% 100 ML (08:43)
[2017-12-27] MEDS: IODIXANOL LOCM 50 ML BTL (08:43)
[2017-12-27] MEDS ORDERED: HEPARIN 5,000 UNIT/0.5 ML VIAL ×2 (09:20→20:07)
[2017-12-27] MEDS: HEPARIN 5,000 UNIT/1 ML VIAL SC ×2 (09:59→20:44)
[2017-12-27] MEDS: METOPROLOL (XL) 100 MG TAB PO ×2 (10:03→20:33)
[2017-12-27] MEDS: LOSARTAN 50 MG TAB PO ×2 (10:03→20:34)
[2017-12-27] MEDS: CLOPIDOGREL 75 MG TAB PO (10:04)
[2017-12-27] MEDS: morphine 2 MG INJ IV (16:21)
[2017-12-27] MEDS: ATORVASTATIN 40 MG TAB PO (20:34)
[2017-12-27] MEDS: INSULIN GLARGINE [LANTus] (100 UNITS/ML) SYG SC (20:44)
[2017-12-28] MEDS: DIPHENHYDRAMINE 50 MG INJ IV ×2 (01:28→21:15)
[2017-12-28] MEDS: ACCU-CHEK XX (02:00)
[2017-12-28] MEDS: PANTOPRAZOLE (EC) 40 MG TAB PO (06:09)
[2017-12-28] MEDS: INSULIN ASPART [NOVOLOG] 3 ML PEN SC ×7 (07:42→20:54)
[2017-12-28] MEDS ORDERED: HEPARIN 5,000 UNIT/0.5 ML VIAL ×2 (08:00→20:04)
[2017-12-28] MEDS: SEVELAMER CARBONATE 0.8 GM PKT PO ×3 (08:03→17:55)
[2017-12-28] MEDS: METOPROLOL (XL) 100 MG TAB PO ×3 (08:03→21:00)
[2017-12-28] MEDS: COLLAGENASE 5 GM (UD JAR) TOP (08:03)
[2017-12-28] MEDS: LOSARTAN 50 MG TAB PO ×3 (08:03→21:00)
[2017-12-28] MEDS: CLOPIDOGREL 75 MG TAB PO (08:03)
[2017-12-28] MEDS: SODIUM HYPOCHLORITE (1/40) 1 APPLIC BTL IRR (08:03)
[2017-12-28] MEDS: HEPARIN 5,000 UNIT/1 ML VIAL SC ×2 (08:08→20:56)
[2017-12-28] MEDS: GLUCOSE GEL 15 GRAM TUBE BUCCAL (11:32)
[2017-12-28] MEDS: INSULIN GLARGINE [LANTus] (100 UNITS/ML) SYG SC (20:55)
[2017-12-28] MEDS: ATORVASTATIN 40 MG TAB PO (21:00)
[2017-12-29] MEDS: ACCU-CHEK XX (02:00)
[2017-12-29] MEDS: DIPHENHYDRAMINE 50 MG INJ IV ×3 (03:27→21:29)
[2017-12-29] MEDS: PANTOPRAZOLE (EC) 40 MG TAB PO (06:22)
[2017-12-29] MEDS: INSULIN ASPART [NOVOLOG] 3 ML PEN SC ×7 (08:00→21:00)
[2017-12-29] MEDS ORDERED: HEPARIN 5,000 UNIT/0.5 ML VIAL ×2 (08:41→20:29)
[2017-12-29] MEDS: LOSARTAN 50 MG TAB PO ×2 (08:53→20:41)
[2017-12-29] MEDS: COLLAGENASE 5 GM (UD JAR) TOP (08:53)
[2017-12-29] MEDS: CLOPIDOGREL 75 MG TAB PO (08:53)
[2017-12-29] MEDS: SODIUM HYPOCHLORITE (1/40) 1 APPLIC BTL IRR (08:54)
[2017-12-29] MEDS: HEPARIN 5,000 UNIT/1 ML VIAL SC ×2 (08:58→20:51)
[2017-12-29] MEDS: METOPROLOL (XL) 100 MG TAB PO ×2 (10:36→20:41)
[2017-12-29] MEDS: SEVELAMER CARBONATE 0.8 GM PKT PO ×3 (10:37→17:57)
[2017-12-29] MEDS: DEXTROSE 50% 50 ML SYRINGE IV (13:25)
[2017-12-29] MEDS: ATORVASTATIN 40 MG TAB PO (20:40)
[2017-12-29] MEDS: INSULIN GLARGINE [LANTus] (100 UNITS/ML) SYG SC (20:51)
[2017-12-30] MEDS: ACCU-CHEK XX (02:00)
[2017-12-30] MEDS: DIPHENHYDRAMINE 50 MG INJ IV ×2 (03:29→22:46)
[2017-12-30] MEDS: PANTOPRAZOLE (EC) 40 MG TAB PO (05:11)
[2017-12-30] MEDS: INSULIN ASPART [NOVOLOG] 3 ML PEN SC ×7 (08:00→20:33)
[2017-12-30] MEDS ORDERED: HEPARIN 5,000 UNIT/0.5 ML VIAL ×2 (08:05→20:01)
[2017-12-30] MEDS: GLUCAGON 1 MG INJ IM ×2 (08:33→17:22)
[2017-12-30] MEDS: LOSARTAN 50 MG TAB PO ×2 (08:36→20:32)
[2017-12-30] MEDS: METOPROLOL (XL) 100 MG TAB PO ×2 (08:36→20:32)
[2017-12-30] MEDS: CLOPIDOGREL 75 MG TAB PO (08:36)
[2017-12-30] MEDS: SEVELAMER CARBONATE 0.8 GM PKT PO ×3 (08:37→17:29)
[2017-12-30] MEDS: SODIUM HYPOCHLORITE (1/40) 1 APPLIC BTL IRR (08:37)
[2017-12-30] MEDS: COLLAGENASE 5 GM (UD JAR) TOP (08:37)
[2017-12-30] MEDS: HEPARIN 5,000 UNIT/1 ML VIAL SC ×2 (08:39→20:35)
[2017-12-30] MEDS ORDERED: morphine LIQ (10 MG/5 ML) CUP PO (16:00)
[2017-12-30] MEDS: DEXTROSE 50% 50 ML SYRINGE IV (17:48)
[2017-12-30] MEDS: DEXTROSE 5%-0.45% NACL 1,000 ML IV (20:25)
[2017-12-30] MEDS: ATORVASTATIN 40 MG TAB PO (20:31)
[2017-12-31] MEDS: ACCU-CHEK XX (01:38)
[2017-12-31] MEDS: PANTOPRAZOLE (EC) 40 MG TAB PO (05:11)
[2017-12-31] MEDS: DIPHENHYDRAMINE 50 MG INJ IV ×4 (05:11→20:35)
[2017-12-31] MEDS: INSULIN ASPART [NOVOLOG] 3 ML PEN SC ×6 (08:00→20:30)
[2017-12-31] MEDS ORDERED: HEPARIN 5,000 UNIT/0.5 ML VIAL ×2 (08:03→20:05)
[2017-12-31] MEDS: COLLAGENASE 5 GM (UD JAR) TOP (08:23)
[2017-12-31] MEDS: CLOPIDOGREL 75 MG TAB PO (08:23)
[2017-12-31] MEDS: SEVELAMER CARBONATE 0.8 GM PKT PO ×3 (08:24→18:00)
[2017-12-31] MEDS: SODIUM HYPOCHLORITE (1/40) 1 APPLIC BTL IRR (08:24)
[2017-12-31] MEDS: LOSARTAN 50 MG TAB PO ×2 (08:29→20:30)
[2017-12-31] MEDS: HEPARIN 5,000 UNIT/1 ML VIAL SC ×2 (08:29→20:32)
[2017-12-31] MEDS: METOPROLOL (XL) 100 MG TAB PO ×2 (08:30→20:30)
[2017-12-31] MEDS ORDERED: LINAGLIPTIN 5 MG TABLET PO (09:30)
[2017-12-31] MEDS: EPOETIN 10000 UNITS/1 ML INJ (ESRD) SC (18:25)
[2017-12-31] MEDS: DEXTROSE 5%-0.45% NACL 1,000 ML IV (19:30)
[2017-12-31] MEDS: ATORVASTATIN 40 MG TAB PO (20:30)
[2017-12-31] MEDS: INSULIN DETEMIR [LEVEMIR] (100 UNITS/ML) SYG SC (20:34)
[2018-01-01] MEDS: ACCU-CHEK XX (01:04)
[2018-01-01] MEDS: DIPHENHYDRAMINE 50 MG INJ IV ×2 (03:03→21:25)
[2018-01-01] MEDS: PANTOPRAZOLE (EC) 40 MG TAB PO (05:32)
[2018-01-01] MEDS: INSULIN ASPART [NOVOLOG] 3 ML PEN SC ×7 (08:00→21:00)
[2018-01-01] MEDS: SEVELAMER CARBONATE 0.8 GM PKT PO ×3 (08:00→18:00)
[2018-01-01] MEDS ORDERED: HEPARIN 5,000 UNIT/0.5 ML VIAL ×2 (08:04→20:05)
[2018-01-01] MEDS: HEPARIN 5,000 UNIT/1 ML VIAL SC ×2 (08:44→21:15)
[2018-01-01] MEDS: CLOPIDOGREL 75 MG TAB PO (08:55)
[2018-01-01] MEDS: LOSARTAN 50 MG TAB PO ×2 (08:55→21:13)
[2018-01-01] MEDS: METOPROLOL (XL) 100 MG TAB PO ×2 (08:56→21:12)
[2018-01-01] MEDS: COLLAGENASE 5 GM (UD JAR) TOP (08:56)
[2018-01-01] MEDS: SODIUM HYPOCHLORITE (1/40) 1 APPLIC BTL IRR (08:56)
[2018-01-01] MEDS: DEXTROSE 5%-0.45% NACL 1,000 ML IV (10:09)
[2018-01-01] MEDS: ZOLPIDEM 5 MG TAB PO (21:13)
[2018-01-01] MEDS: ATORVASTATIN 40 MG TAB PO (21:13)
[2018-01-01] MEDS: INSULIN DETEMIR [LEVEMIR] (100 UNITS/ML) SYG SC (21:16)
[2018-01-02] MEDS: ACCU-CHEK XX (01:40)
[2018-01-02] MEDS: GLUCOSE GEL 15 GRAM TUBE PO (05:52)
[2018-01-02] MEDS: PANTOPRAZOLE (EC) 40 MG TAB PO (06:00)
[2018-01-02] MEDS: DEXTROSE 50% 50 ML SYRINGE IV (06:21)
[2018-01-02] MEDS: INSULIN ASPART [NOVOLOG] 3 ML PEN SC ×9 (08:45→20:57)
[2018-01-02] MEDS ORDERED: HEPARIN 5,000 UNIT/0.5 ML VIAL ×2 (08:52→20:31)
[2018-01-02] MEDS: SEVELAMER CARBONATE 0.8 GM PKT PO ×4 (08:54→17:17)
[2018-01-02] MEDS: CLOPIDOGREL 75 MG TAB PO (08:54)
[2018-01-02] MEDS: METOPROLOL (XL) 100 MG TAB PO ×2 (08:55→20:50)
[2018-01-02] MEDS: LOSARTAN 50 MG TAB PO ×2 (08:55→20:50)
[2018-01-02] MEDS: COLLAGENASE 5 GM (UD JAR) TOP (08:55)
[2018-01-02] MEDS: SODIUM HYPOCHLORITE (1/40) 1 APPLIC BTL IRR (08:56)
[2018-01-02] MEDS: HEPARIN 5,000 UNIT/1 ML VIAL SC ×2 (09:00→21:05)
[2018-01-02 09:48] LABS: ADD MAN DIFF? NO
[2018-01-02 09:56] LABS: WHITE BLOOD COUNT 4.8 10^3/ul (4.8-10.8)
[2018-01-02 09:56] LABS: BASOPHILS % 0.8 % (0.0-2.0); EOSINOPHILS % 0.6 % (0.0-7.0); HEMATOCRIT 33.1 % (37.0-47.0); HEMOGLOBIN 10.4 g/dl (12.0-16.0); LYMPHOCYTES % 21.3 % (15.0-51.0); MEAN CORPUSCULAR HEMOGLOBIN 34.3 pg (29.0-33.0); MEAN CORPUSCULAR HGB CONC 31.4 g/dl (32.0-37.0); MEAN CORPUSCULAR VOLUME 109.2 fl (82.0-101.0); MEAN PLATELET VOLUME 10.5 fl (7.4-10.4); MONOCYTE # 0.9 10^3/ul (0.3-0.9); MONOCYTES % 19.4 % (0.0-11.0); NEUTROPHIL # 2.7 10^3/ul (1.6-7.5); NEUTROPHILS % 57.3 % (39.0-77.0); PLATELET COUNT 251 10^3/UL (140-415); RED BLOOD COUNT 3.03 10^6/ul (4.20-5.40); RED CELL DISTRIBUTION WIDTH 18.8 % (11.5-14.5)
[2018-01-02 10:16] LABS: ANION GAP 12 (5-13); BLOOD UREA NITROGEN 38 mg/dl (7-20); CALCIUM 8.4 mg/dl (8.4-10.2); CARBON DIOXIDE 25 mmol/L (21-31); CHLORIDE 100 mmol/L (97-110); Estimated GFR 11 mL/min (>60); GLUCOSE 162 mg/dl (70-220); PHOSPHORUS 5.8 mg/dl (2.5-4.9); POTASSIUM 4.8 mmol/L (3.5-5.1); SODIUM 137 mmol/L (135-144)
[2018-01-02] MEDS: EPOETIN 10000 UNITS/1 ML INJ (ESRD) SC (17:00)
[2018-01-02] MEDS: DIPHENHYDRAMINE 50 MG INJ IV ×2 (17:17→21:56)
[2018-01-02] MEDS: DEXTROSE 5%-0.45% NACL 1,000 ML IV (20:48)
[2018-01-02] MEDS: ATORVASTATIN 40 MG TAB PO (20:49)
[2018-01-02] MEDS: INSULIN DETEMIR [LEVEMIR] (100 UNITS/ML) SYG SC ×2 (21:25)
[2018-01-03] MEDS: ACCU-CHEK XX (01:40)
[2018-01-03] MEDS: DIPHENHYDRAMINE 50 MG INJ IV ×3 (01:54→13:54)
[2018-01-03] MEDS: PANTOPRAZOLE (EC) 40 MG TAB PO (06:00)
[2018-01-03] MEDS ORDERED: HEPARIN 5,000 UNIT/0.5 ML VIAL (08:31)
[2018-01-03] MEDS: LOSARTAN 50 MG TAB PO (08:36)
[2018-01-03] MEDS: METOPROLOL (XL) 100 MG TAB PO (08:37)
[2018-01-03] MEDS: SEVELAMER CARBONATE 0.8 GM PKT PO ×2 (08:37→12:00)
[2018-01-03] MEDS: COLLAGENASE 5 GM (UD JAR) TOP (08:37)
[2018-01-03] MEDS: CLOPIDOGREL 75 MG TAB PO (08:37)
[2018-01-03] MEDS: DRONABINOL 2.5 MG CAP PO (08:37)
[2018-01-03] MEDS: HEPARIN 5,000 UNIT/1 ML VIAL SC (08:38)
[2018-01-03] MEDS: SODIUM HYPOCHLORITE (1/40) 1 APPLIC BTL IRR (09:33)
[2018-01-03] MEDS: INSULIN ASPART [NOVOLOG] 3 ML PEN SC ×4 (09:35→13:55)
== END 2018-01-03 16:10 | DRG 981 ==
LOC: E/R 20:32 → TEL 12-25 17:31 → 2NE 12-28 18:07 → PP2 12-15 01:41
PROC: 047U3ZZ Dilation of Left Peroneal Artery, Percutaneous Approach (ICD-10-PCS; principal; 2017-12-25 13:07)
PROC: 047S3ZZ Dilation of Left Posterior Tibial Artery, Percutaneous Approach (ICD-10-PCS; 2017-12-25 13:07)
PROC: 5A1D70Z Performance of Urinary Filtration, Intermittent, Less than 6 Hours Per Day (ICD-10-PCS; 2017-12-25 13:07)
DX: G92 Toxic encephalopathy (principal); N18.6 End stage renal disease; I70.262 Atherosclerosis of native arteries of extremities with gangrene, left leg; L03.116 Cellulitis of left lower limb; I13.2 Hypertensive heart and chronic kidney disease with heart failure and with stage 5 chronic kidney disease, or end stage renal disease; I50.22 Chronic systolic (congestive) heart failure; E11.52 Type 2 diabetes mellitus with diabetic peripheral angiopathy with gangrene; I42.8 Other cardiomyopathies; N25.81 Secondary hyperparathyroidism of renal origin; E78.5 Hyperlipidemia, unspecified; E11.622 Type 2 diabetes mellitus with other skin ulcer; E11.22 Type 2 diabetes mellitus with diabetic chronic kidney disease; D63.1 Anemia in chronic kidney disease; Z86.73 Personal history of transient ischemic attack (TIA), and cerebral infarction without residual deficits; G89.4 Chronic pain syndrome; K29.70 Gastritis, unspecified, without bleeding; K27.9 Peptic ulcer, site unspecified, unspecified as acute or chronic, without hemorrhage or perforation; Z99.2 Dependence on renal dialysis; E83.89 Other disorders of mineral metabolism; E11.649 Type 2 diabetes mellitus with hypoglycemia without coma; E11.43 Type 2 diabetes mellitus with diabetic autonomic (poly)neuropathy; K31.84 Gastroparesis
CPT/HCPCS: 70450; 73590; 73630; 73630-LT; 75635; 80048; 80053; 82728; 82947; 82962; 83540; 83735; 84100; 84443; 85025; 85651; 86140; 87040; 87081; 87340; 90935; 93922; 96374; 96375; 97110; 97116; 97162; 97530; 99285-25

== ENCOUNTER 2018-02-07 16:20 | Inpatient (IN) | payer MEDICARE, MEDICAID ==
[2018-02-07] MEDS ORDERED: ONDANSETRON 4 MG INJ IV (18:00)
[2018-02-07] MEDS ORDERED: ACETAMINOPHEN 325 MG TAB PO (18:00)
[2018-02-07 18:15] LABS: ADD MAN DIFF? NO
[2018-02-07 18:19] LABS: ABNORMAL IP MESSAGE 1; BASOPHILS % 0.5 % (0.0-2.0); EOSINOPHILS % 0.5 % (0.0-7.0); LYMPHOCYTES # 0.6 10^3/ul (0.8-2.9); LYMPHOCYTES % 9.2 % (15.0-51.0); MEAN CORPUSCULAR HEMOGLOBIN 34.3 pg (29.0-33.0); MEAN CORPUSCULAR HGB CONC 31.4 g/dl (32.0-37.0); MEAN PLATELET VOLUME 11.4 fl (7.4-10.4); MONOCYTE # 0.7 10^3/ul (0.3-0.9); MONOCYTES % 10.6 % (0.0-11.0); NEUTROPHIL # 5.1 10^3/ul (1.6-7.5); NEUTROPHILS % 78.7 % (39.0-77.0); PLATELET COUNT 204 10^3/UL (140-415); RED BLOOD COUNT 3.21 10^6/ul (4.20-5.40); RED CELL DISTRIBUTION WIDTH 16.5 % (11.5-14.5)
[2018-02-07 18:19] LABS: WHITE BLOOD COUNT 6.4 10^3/ul (4.8-10.8)
[2018-02-07 18:20] LABS: POSITIVE DIFF @See below
[2018-02-07 18:35] LABS: HEMOGLOBIN A1C 6.2 % (0-5.9)
[2018-02-07 18:37] LABS: ALANINE AMINOTRANSFERASE 9 IU/L (13-69); ALBUMIN 3.7 g/dl (3.3-4.9); ALBUMIN/GLOBULIN RATIO 0.62; ALKALINE PHOSPHATASE 228 IU/L (42-121); ANION GAP 15 (5-13); ASPARTATE AMINO TRANSFERASE 30 IU/L (15-46); BILIRUBIN,INDIRECT 0.5 mg/dl (0-1.1); BILIRUBIN,TOTAL 0.8 mg/dl (0.2-1.3); BLOOD UREA NITROGEN 30 mg/dl (7-20); CALCIUM 9.2 mg/dl (8.4-10.2); CARBON DIOXIDE 29 mmol/L (21-31); CHLORIDE 94 mmol/L (97-110); CREATININE 3.88 mg/dl (0.44-1.00); Estimated GFR 14 mL/min (>60); GLUCOSE 282 mg/dl (70-220); POTASSIUM 5.1 mmol/L (3.5-5.1); SODIUM 138 mmol/L (135-144); TOTAL PROTEIN 9.6 g/dl (6.1-8.1)
[2018-02-07 18:40] LABS: PROTIME 14.4 Sec (11.9-14.9); PT RATIO 1.1
[2018-02-07 18:40] LABS: C-REACTIVE PROTEIN 5.1 mg/dl (0.0-0.9)
[2018-02-07 18:41] LABS: PARTIAL THROMBOPLASTIN TIME 30.4 Sec (23.0-35.0)
[2018-02-07 18:48] LABS: TROPONIN-I < 0.012 ng/ml (0.000-0.120)
[2018-02-07] MEDS: ONDANSETRON 4 MG INJ IV (19:11)
[2018-02-07] MEDS: morphine 4 MG/ML VIAL IV (19:12)
[2018-02-07] MEDS: PIPER-TAZO 3.375 GM IV (PMX) 100 ML IVPB (20:00)
[2018-02-07] MEDS: CLINDAMYCIN 900 MG/D5W (PMX) 50 ML IVPB (20:00)
[2018-02-07] MEDS: GENTAMICIN 120 MG/NS (PMX) 100 ML IVPB (20:55)
[2018-02-08] MEDS ORDERED: ACETAMINOPHEN 325 MG TAB PO (01:30)
[2018-02-08] MEDS: ACCU-CHEK XX (02:00)
[2018-02-08 05:30] LABS: ADD MAN DIFF? NO
[2018-02-08] MEDS: LACTULOSE 30ML CUP PO ×3 (05:34→17:50)
[2018-02-08 05:38] LABS: BASOPHILS % 0.5 % (0.0-2.0); EOSINOPHILS # 0.1 10^3/ul (0.0-0.5); EOSINOPHILS % 1.3 % (0.0-7.0); HEMATOCRIT 30.8 % (37.0-47.0); HEMOGLOBIN 9.7 g/dl (12.0-16.0); LYMPHOCYTES # 0.7 10^3/ul (0.8-2.9); LYMPHOCYTES % 13.5 % (15.0-51.0); MEAN CORPUSCULAR HEMOGLOBIN 34.5 pg (29.0-33.0); MEAN CORPUSCULAR HGB CONC 31.5 g/dl (32.0-37.0); MEAN CORPUSCULAR VOLUME 109.6 fl (82.0-101.0); MEAN PLATELET VOLUME 11.4 fl (7.4-10.4); MONOCYTE # 0.6 10^3/ul (0.3-0.9); MONOCYTES % 11.6 % (0.0-11.0); NEUTROPHILS % 72.6 % (39.0-77.0); PLATELET COUNT 176 10^3/UL (140-415); RED BLOOD COUNT 2.81 10^6/ul (4.20-5.40); RED CELL DISTRIBUTION WIDTH 16.7 % (11.5-14.5)
[2018-02-08 05:38] LABS: WHITE BLOOD COUNT 5.5 10^3/ul (4.8-10.8)
[2018-02-08] MEDS ORDERED: PIPER-TAZO 3.375 GM IV (PMX) 100 ML IVPB (06:00)
[2018-02-08 06:04] LABS: ANION GAP 11 (5-13); BLOOD UREA NITROGEN 37 mg/dl (7-20); CALCIUM 8.7 mg/dl (8.4-10.2); CARBON DIOXIDE 28 mmol/L (21-31); CHLORIDE 101 mmol/L (97-110); CREATININE 4.28 mg/dl (0.44-1.00); Estimated GFR 13 mL/min (>60); GLUCOSE 167 mg/dl (70-220); POTASSIUM 4.7 mmol/L (3.5-5.1); SODIUM 140 mmol/L (135-144)
[2018-02-08] MEDS: PIPER-TAZO 2.25 GM (PMX) 50 ML IVPB (06:19)
[2018-02-08] MEDS: DIPHENHYDRAMINE 50 MG CAP PO ×2 (06:33→16:00)
[2018-02-08] MEDS: DIPHENHYDRAMINE 50 MG INJ IV ×2 (07:25→21:04)
[2018-02-08] MEDS ORDERED: METOPROLOL (XL) 100 MG TAB PO (09:00)
[2018-02-08] MEDS ORDERED: CLINDAMYCIN 600 MG/D5W (PMX) 50 ML IVPB (09:00)
[2018-02-08] MEDS ORDERED: HEPARIN 5,000 UNIT/0.5 ML VIAL SC (09:00)
[2018-02-08] MEDS: CLOPIDOGREL 75 MG TAB PO (09:18)
[2018-02-08] MEDS: LOSARTAN 50 MG TAB PO (09:19)
[2018-02-08] MEDS: METOPROLOL (XL) 100 MG TAB PO (09:19)
[2018-02-08] MEDS: SEVELAMER CARBONATE 0.8 GM PKT PO ×3 (09:20→17:51)
[2018-02-08] MEDS: PANTOPRAZOLE (EC) 40 MG TAB PO (09:20)
[2018-02-08] MEDS: DRONABINOL 2.5 MG CAP PO (09:23)
[2018-02-08] MEDS: INSULIN ASPART [NOVOLOG] 3 ML PEN SC ×7 (09:27→20:45)
[2018-02-08] MEDS: morphine LIQ (10 MG/5 ML) CUP PO ×2 (09:37→21:04)
[2018-02-08] MEDS: HEPARIN 5,000 UNIT/1 ML VIAL SC ×2 (12:00→20:52)
[2018-02-08 13:16] LABS: HEPATITIS B SURFACE ANTIGEN NEGATIVE (NEGATIVE)
[2018-02-08] MEDS: ONDANSETRON 4 MG TAB PO ×2 (14:23→21:04)
[2018-02-08] MEDS: CLINDAMYCIN 900 MG/D5W (PMX) 50 ML IVPB ×2 (15:12→22:29)
[2018-02-08] MEDS: LEVOFLOXACIN 500 MG TAB PO (15:19)
[2018-02-08 17:05] LABS: C-REACTIVE PROTEIN 4.8 mg/dl (0.0-0.9)
[2018-02-08] MEDS: EPOETIN 10000 UNITS/1 ML INJ (ESRD) SC (17:52)
[2018-02-08 17:53] LABS: ERYTHROCYTE SEDIMENTATION RATE 40 mm/Hr (0-30)
[2018-02-08] MEDS: ATORVASTATIN 40 MG TAB PO (20:48)
[2018-02-08] MEDS: INSULIN GLARGINE [LANTus] (100 UNITS/ML) SYG SC (20:52)
[2018-02-09] MEDS: ACCU-CHEK XX (02:00)
[2018-02-09 05:17] LABS: WHITE BLOOD COUNT 5.4 10^3/ul (4.8-10.8)
[2018-02-09 05:17] LABS: ABNORMAL IP MESSAGE 1; ADD MAN DIFF? NO; BASOPHILS % 0.7 % (0.0-2.0); EOSINOPHILS % 0.6 % (0.0-7.0); HEMATOCRIT 31.5 % (37.0-47.0); HEMOGLOBIN 9.9 g/dl (12.0-16.0); LYMPHOCYTES # 0.6 10^3/ul (0.8-2.9); MEAN CORPUSCULAR HEMOGLOBIN 34.4 pg (29.0-33.0); MEAN CORPUSCULAR HGB CONC 31.4 g/dl (32.0-37.0); MEAN CORPUSCULAR VOLUME 109.4 fl (82.0-101.0); MEAN PLATELET VOLUME 10.8 fl (7.4-10.4); MONOCYTE # 0.8 10^3/ul (0.3-0.9); MONOCYTES % 13.8 % (0.0-11.0); NEUTROPHILS % 74.2 % (39.0-77.0); PLATELET COUNT 185 10^3/UL (140-415); RED BLOOD COUNT 2.88 10^6/ul (4.20-5.40); RED CELL DISTRIBUTION WIDTH 16.6 % (11.5-14.5)
[2018-02-09 05:41] LABS: POSITIVE DIFF @See below
[2018-02-09 05:44] LABS: LYMPHOCYTES % 10.3 % (15.0-51.0)
[2018-02-09 05:48] LABS: ANION GAP 13 (5-13); BLOOD UREA NITROGEN 26 mg/dl (7-20); CALCIUM 8.8 mg/dl (8.4-10.2); CARBON DIOXIDE 31 mmol/L (21-31); CHLORIDE 98 mmol/L (97-110); CREATININE 3.34 mg/dl (0.44-1.00); Estimated GFR 17 mL/min (>60); POTASSIUM 4.4 mmol/L (3.5-5.1); SODIUM 142 mmol/L (135-144)
[2018-02-09 05:52] LABS: GLUCOSE 40 mg/dl (70-220)
[2018-02-09] MEDS: GLUCOSE GEL 15 GRAM TUBE PO (06:00)
[2018-02-09] MEDS: DEXTROSE 50% 50 ML SYRINGE IV (06:12)
[2018-02-09] MEDS: PANTOPRAZOLE (EC) 40 MG TAB PO ×2 (06:17→09:00)
[2018-02-09] MEDS: LACTULOSE 30ML CUP PO ×4 (06:18→18:00)
[2018-02-09] MEDS: CLINDAMYCIN 900 MG/D5W (PMX) 50 ML IVPB ×3 (07:15→22:00)
[2018-02-09] MEDS: SODIUM HYPOCHLORITE (1/40) 1 APPLIC BTL IRR (08:59)
[2018-02-09] MEDS: CLOPIDOGREL 75 MG TAB PO (09:00)
[2018-02-09] MEDS: LOSARTAN 50 MG TAB PO ×2 (09:01→20:05)
[2018-02-09] MEDS: DRONABINOL 2.5 MG CAP PO (09:01)
[2018-02-09] MEDS: METOPROLOL (XL) 50 MG TAB PO ×2 (09:01→20:05)
[2018-02-09] MEDS: SEVELAMER CARBONATE 0.8 GM PKT PO ×3 (09:01→18:15)
[2018-02-09] MEDS: HEPARIN 5,000 UNIT/1 ML VIAL SC ×2 (09:02→20:22)
[2018-02-09] MEDS: INSULIN ASPART [NOVOLOG] 3 ML PEN SC ×7 (09:03→20:26)
[2018-02-09] MEDS: EPOETIN 10000 UNITS/1 ML INJ (ESRD) SC (18:16)
[2018-02-09] MEDS: DIPHENHYDRAMINE 50 MG INJ IV (20:00)
[2018-02-09] MEDS: ATORVASTATIN 40 MG TAB PO (20:26)
[2018-02-09] MEDS: INSULIN GLARGINE [LANTus] (100 UNITS/ML) SYG SC (20:26)
[2018-02-09] MEDS: ONDANSETRON 4 MG TAB PO (22:02)
[2018-02-09] MEDS: morphine LIQ (10 MG/5 ML) CUP PO (22:03)
[2018-02-10] MEDS: DIPHENHYDRAMINE 50 MG INJ IV ×2 (00:53→21:28)
[2018-02-10] MEDS: ACCU-CHEK XX (02:00)
[2018-02-10] MEDS: morphine LIQ (10 MG/5 ML) CUP PO ×2 (02:29→21:28)
[2018-02-10] MEDS: GLUCOSE GEL 15 GRAM TUBE PO (04:33)
[2018-02-10] MEDS: DEXTROSE 50% 50 ML SYRINGE IV (04:34)
[2018-02-10] MEDS ORDERED: VITAMIN A & D 5 GM OINT PACKET TOP (04:44)
[2018-02-10] MEDS: LACTULOSE 30ML CUP PO ×5 (06:00→23:45)
[2018-02-10] MEDS: CLINDAMYCIN 900 MG/D5W (PMX) 50 ML IVPB ×3 (06:05→21:13)
[2018-02-10] MEDS: LEVOFLOXACIN 250 MG TAB PO (06:06)
[2018-02-10] MEDS: PANTOPRAZOLE (EC) 40 MG TAB PO (06:06)
[2018-02-10] MEDS: INSULIN ASPART [NOVOLOG] 3 ML PEN SC ×8 (08:50→21:58)
[2018-02-10] MEDS: SEVELAMER CARBONATE 0.8 GM PKT PO ×3 (09:01→17:50)
[2018-02-10] MEDS: CLOPIDOGREL 75 MG TAB PO (09:01)
[2018-02-10] MEDS: ONDANSETRON 4 MG TAB PO ×2 (09:02→21:28)
[2018-02-10] MEDS: LOSARTAN 50 MG TAB PO ×2 (09:02→21:12)
[2018-02-10] MEDS: SODIUM HYPOCHLORITE (1/40) 1 APPLIC BTL IRR (09:05)
[2018-02-10] MEDS: HEPARIN 5,000 UNIT/1 ML VIAL SC ×2 (09:09→21:19)
[2018-02-10] MEDS: METOPROLOL (XL) 50 MG TAB PO ×2 (09:12→21:12)
[2018-02-10] MEDS: DRONABINOL 2.5 MG CAP PO (09:17)
[2018-02-10] MEDS: EPOETIN 10000 UNITS/1 ML INJ (ESRD) SC (18:04)
[2018-02-10] MEDS: ATORVASTATIN 40 MG TAB PO (21:11)
[2018-02-10] MEDS: INSULIN GLARGINE [LANTus] (100 UNITS/ML) SYG SC (21:17)
[2018-02-11] MEDS: ACCU-CHEK XX (02:13)
[2018-02-11] MEDS: LACTULOSE 30ML CUP PO ×4 (05:44→18:00)
[2018-02-11] MEDS: CLINDAMYCIN 900 MG/D5W (PMX) 50 ML IVPB ×3 (05:44→22:18)
[2018-02-11] MEDS: PANTOPRAZOLE (EC) 40 MG TAB PO (05:44)
[2018-02-11] MEDS: DRONABINOL 2.5 MG CAP PO (09:00)
[2018-02-11] MEDS: INSULIN ASPART [NOVOLOG] 3 ML PEN SC ×7 (09:21→21:00)
[2018-02-11] MEDS: CLOPIDOGREL 75 MG TAB PO (09:22)
[2018-02-11] MEDS: SEVELAMER CARBONATE 0.8 GM PKT PO ×3 (09:22→18:30)
[2018-02-11] MEDS: LOSARTAN 50 MG TAB PO (09:35)
[2018-02-11] MEDS: HEPARIN 5,000 UNIT/1 ML VIAL SC ×2 (09:38→21:55)
[2018-02-11] MEDS: SODIUM HYPOCHLORITE (1/40) 1 APPLIC BTL IRR (12:46)
[2018-02-11] MEDS: METOPROLOL (XL) 100 MG TAB PO (12:46)
[2018-02-11] MEDS ORDERED: LIDOCAINE 1% (MPF) 30 ML INJ INJ (16:00)
[2018-02-11] MEDS: morphine LIQ (10 MG/5 ML) CUP PO ×2 (16:03→23:11)
[2018-02-11] MEDS: EPOETIN 10000 UNITS/1 ML INJ (ESRD) SC (17:53)
[2018-02-11] MEDS: HYDROmorphONE 0.5 MG/0.5 ML SYG IV ×2 (18:36→19:45)
[2018-02-11 18:56] LABS: C-REACTIVE PROTEIN 4.9 mg/dl (0.0-0.9)
[2018-02-11 20:12] LABS: ERYTHROCYTE SEDIMENTATION RATE 38 mm/Hr (0-30)
[2018-02-11] MEDS: ATORVASTATIN 40 MG TAB PO (21:25)
[2018-02-11] MEDS: INSULIN GLARGINE [LANTus] (100 UNITS/ML) SYG SC (21:55)
[2018-02-11] MEDS: DIPHENHYDRAMINE 50 MG INJ IV (23:10)
[2018-02-11] MEDS: LOPERAMIDE 2 MG CAP PO (23:44)
[2018-02-11] MEDS: ONDANSETRON 4 MG TAB PO (23:57)
[2018-02-12] MEDS: ACCU-CHEK XX (02:00)
[2018-02-12] MEDS: LACTULOSE 30ML CUP PO ×2 (05:46)
[2018-02-12] MEDS: LEVOFLOXACIN 250 MG TAB PO (05:47)
[2018-02-12] MEDS: CLINDAMYCIN 900 MG/D5W (PMX) 50 ML IVPB ×3 (05:47→20:53)
[2018-02-12] MEDS: PANTOPRAZOLE (EC) 40 MG TAB PO (05:47)
[2018-02-12] MEDS: ONDANSETRON 4 MG TAB PO (07:06)
[2018-02-12] MEDS: METOPROLOL (XL) 50 MG TAB PO ×2 (09:00→20:33)
[2018-02-12] MEDS: LOSARTAN 50 MG TAB PO ×2 (09:00→20:33)
[2018-02-12] MEDS: SEVELAMER CARBONATE 0.8 GM PKT PO ×3 (09:16→18:00)
[2018-02-12] MEDS: INSULIN ASPART [NOVOLOG] 3 ML PEN SC ×7 (09:17→20:37)
[2018-02-12] MEDS: CLOPIDOGREL 75 MG TAB PO (09:18)
[2018-02-12] MEDS: HEPARIN 5,000 UNIT/1 ML VIAL SC ×2 (09:19→20:36)
[2018-02-12] MEDS: SODIUM HYPOCHLORITE (1/40) 1 APPLIC BTL IRR (09:20)
[2018-02-12] MEDS: DRONABINOL 2.5 MG CAP PO (09:23)
[2018-02-12] MEDS: DIPHENHYDRAMINE 50 MG INJ IV ×2 (12:09→20:48)
[2018-02-12] MEDS: EPOETIN 10000 UNITS/1 ML INJ (ESRD) SC (18:01)
[2018-02-12] MEDS: ATORVASTATIN 40 MG TAB PO (20:32)
[2018-02-12] MEDS: INSULIN GLARGINE [LANTus] (100 UNITS/ML) SYG SC (20:36)
[2018-02-13] MEDS: ACCU-CHEK XX (02:00)
[2018-02-13 05:32] LABS: ADD MAN DIFF? NO
[2018-02-13] MEDS: CLINDAMYCIN 900 MG/D5W (PMX) 50 ML IVPB ×3 (05:39→21:58)
[2018-02-13 05:41] LABS: WHITE BLOOD COUNT 5.2 10^3/ul (4.8-10.8)
[2018-02-13 05:41] LABS: BASOPHILS % 0.8 % (0.0-2.0); EOSINOPHILS # 0.1 10^3/ul (0.0-0.5); EOSINOPHILS % 1.2 % (0.0-7.0); HEMATOCRIT 34.8 % (37.0-47.0); HEMOGLOBIN 11.1 g/dl (12.0-16.0); LYMPHOCYTES # 0.7 10^3/ul (0.8-2.9); LYMPHOCYTES % 13.1 % (15.0-51.0); MEAN CORPUSCULAR HEMOGLOBIN 34.5 pg (29.0-33.0); MEAN CORPUSCULAR HGB CONC 31.9 g/dl (32.0-37.0); MEAN CORPUSCULAR VOLUME 108.1 fl (82.0-101.0); MEAN PLATELET VOLUME 11.3 fl (7.4-10.4); MONOCYTE # 1.1 10^3/ul (0.3-0.9); MONOCYTES % 20.2 % (0.0-11.0); NEUTROPHIL # 3.3 10^3/ul (1.6-7.5); NEUTROPHILS % 64.1 % (39.0-77.0); PLATELET COUNT 202 10^3/UL (140-415); RED BLOOD COUNT 3.22 10^6/ul (4.20-5.40); RED CELL DISTRIBUTION WIDTH 16.5 % (11.5-14.5)
[2018-02-13] MEDS: PANTOPRAZOLE (EC) 40 MG TAB PO (05:41)
[2018-02-13 06:13] LABS: ANION GAP 13 (5-13); BLOOD UREA NITROGEN 20 mg/dl (7-20); CALCIUM 8.4 mg/dl (8.4-10.2); CARBON DIOXIDE 27 mmol/L (21-31); CHLORIDE 100 mmol/L (97-110); Estimated GFR 21 mL/min (>60); GLUCOSE 97 mg/dl (70-220); PHOSPHORUS 5.5 mg/dl (2.5-4.9); POTASSIUM 4.7 mmol/L (3.5-5.1); SODIUM 140 mmol/L (135-144)
[2018-02-13] MEDS: INSULIN ASPART [NOVOLOG] 3 ML PEN SC ×7 (07:50→21:00)
[2018-02-13] MEDS: DRONABINOL 2.5 MG CAP PO (09:00)
[2018-02-13] MEDS: CLOPIDOGREL 75 MG TAB PO (09:11)
[2018-02-13] MEDS: SEVELAMER CARBONATE 0.8 GM PKT PO ×3 (09:11→17:55)
[2018-02-13] MEDS: SODIUM HYPOCHLORITE (1/40) 1 APPLIC BTL IRR (09:14)
[2018-02-13] MEDS: HEPARIN 5,000 UNIT/1 ML VIAL SC ×2 (09:15→21:51)
[2018-02-13] MEDS: LOSARTAN 50 MG TAB PO (09:20)
[2018-02-13] MEDS: METOPROLOL (XL) 100 MG TAB PO (09:20)
[2018-02-13] MEDS: ONDANSETRON 4 MG TAB PO (09:21)
[2018-02-13] MEDS: DIPHENHYDRAMINE 50 MG INJ IV ×2 (13:39→21:14)
[2018-02-13] MEDS: GLUCOSE GEL 15 GRAM TUBE BUCCAL (17:57)
[2018-02-13] MEDS: DEXTROSE 50% 50 ML SYRINGE IV (18:12)
[2018-02-13 18:45] LABS: GLUCOSE 66 mg/dl (70-220)
[2018-02-13] MEDS: ATORVASTATIN 40 MG TAB PO (21:21)
[2018-02-13] MEDS: INSULIN GLARGINE [LANTus] (100 UNITS/ML) SYG SC (21:51)
[2018-02-14] MEDS: ACCU-CHEK XX (02:00)
[2018-02-14] MEDS: PANTOPRAZOLE (EC) 40 MG TAB PO (06:40)
[2018-02-14] MEDS: CLINDAMYCIN 900 MG/D5W (PMX) 50 ML IVPB ×3 (06:40→21:59)
[2018-02-14] MEDS: INSULIN ASPART [NOVOLOG] 3 ML PEN SC ×7 (07:50→21:00)
[2018-02-14] MEDS: DEXTROSE 50% 50 ML SYRINGE IV ×2 (08:26→19:49)
[2018-02-14] MEDS: CLOPIDOGREL 75 MG TAB PO (08:55)
[2018-02-14] MEDS: SEVELAMER CARBONATE 0.8 GM PKT PO ×3 (08:56→17:55)
[2018-02-14] MEDS: METOPROLOL (XL) 50 MG TAB PO ×2 (08:56→21:00)
[2018-02-14] MEDS: LOSARTAN 50 MG TAB PO ×2 (08:58→21:00)
[2018-02-14] MEDS: LEVOFLOXACIN 250 MG TAB PO (08:58)
[2018-02-14] MEDS: DRONABINOL 2.5 MG CAP PO (09:00)
[2018-02-14] MEDS: SODIUM HYPOCHLORITE (1/40) 1 APPLIC BTL IRR (09:01)
[2018-02-14] MEDS: HEPARIN 5,000 UNIT/1 ML VIAL SC ×2 (09:14→21:00)
[2018-02-14 11:06] LABS: GLUCOSE 160 mg/dl (70-220)
[2018-02-14] MEDS: DIPHENHYDRAMINE 50 MG INJ IV ×2 (15:26→21:08)
[2018-02-14] MEDS: morphine LIQ (10 MG/5 ML) CUP PO (15:26)
[2018-02-14] MEDS: COLLAGENASE 5 GM (UD JAR) TOP (18:28)
[2018-02-14] MEDS: GLUCOSE GEL 15 GRAM TUBE PO (19:02)
[2018-02-14] MEDS ORDERED: INSULIN GLARGINE [LANTus] (100 UNITS/ML) SYG SC ×2 (21:00)
[2018-02-14] MEDS: ATORVASTATIN 40 MG TAB PO (21:59)
[2018-02-15] MEDS: DIPHENHYDRAMINE 50 MG INJ IV ×2 (01:03→21:49)
[2018-02-15] MEDS: DEXTROSE 50% 50 ML SYRINGE IV ×2 (01:17→09:22)
[2018-02-15] MEDS: ACCU-CHEK XX (01:24)
[2018-02-15] MEDS: CLINDAMYCIN 900 MG/D5W (PMX) 50 ML IVPB ×3 (05:17→21:49)
[2018-02-15] MEDS: SEVELAMER CARBONATE 0.8 GM PKT PO ×4 (07:50→17:55)
[2018-02-15] MEDS: INSULIN ASPART [NOVOLOG] 3 ML PEN SC ×7 (07:50→21:00)
[2018-02-15] MEDS: DRONABINOL 2.5 MG CAP PO (09:04)
[2018-02-15] MEDS: PANTOPRAZOLE (EC) 40 MG TAB PO (09:04)
[2018-02-15 10:14] LABS: C-REACTIVE PROTEIN 4.7 mg/dl (0.0-0.9)
[2018-02-15 10:55] LABS: ERYTHROCYTE SEDIMENTATION RATE 30 mm/Hr (0-30)
[2018-02-15] MEDS: METOPROLOL (XL) 100 MG TAB PO (11:30)
[2018-02-15] MEDS: LOSARTAN 50 MG TAB PO (11:30)
[2018-02-15] MEDS: CLOPIDOGREL 75 MG TAB PO (12:12)
[2018-02-15] MEDS: HEPARIN 5,000 UNIT/1 ML VIAL SC ×2 (12:13→22:03)
[2018-02-15] MEDS: HYDROCORTISONE 100 MG INJ IV (14:10)
[2018-02-15] MEDS: INSULIN GLARGINE [LANTus] (100 UNITS/ML) SYG SC (15:31)
[2018-02-15] MEDS: SODIUM HYPOCHLORITE (1/40) 1 APPLIC BTL IRR (15:59)
[2018-02-15] MEDS: COLLAGENASE 5 GM (UD JAR) TOP (16:00)
[2018-02-15] MEDS: ATORVASTATIN 40 MG TAB PO (21:49)
[2018-02-16] MEDS: ACCU-CHEK XX (02:00)
[2018-02-16] MEDS: morphine LIQ (10 MG/5 ML) CUP PO (03:16)
[2018-02-16] MEDS: ONDANSETRON 4 MG TAB PO (03:16)
[2018-02-16] MEDS: DIPHENHYDRAMINE 50 MG INJ IV ×2 (04:04→10:21)
[2018-02-16 05:10] LABS: ADD MAN DIFF? NO
[2018-02-16 05:22] LABS: WHITE BLOOD COUNT 5.6 10^3/ul (4.8-10.8)
[2018-02-16 05:22] LABS: ABNORMAL IP MESSAGE 1; BASOPHILS % 0.2 % (0.0-2.0); HEMATOCRIT 35.7 % (37.0-47.0); HEMOGLOBIN 12.1 g/dl (12.0-16.0); LYMPHOCYTES # 0.5 10^3/ul (0.8-2.9); LYMPHOCYTES % 8.9 % (15.0-51.0); MEAN CORPUSCULAR HEMOGLOBIN 35.1 pg (29.0-33.0); MEAN CORPUSCULAR HGB CONC 33.9 g/dl (32.0-37.0); MEAN CORPUSCULAR VOLUME 103.5 fl (82.0-101.0); MEAN PLATELET VOLUME 11.4 fl (7.4-10.4); MONOCYTE # 0.8 10^3/ul (0.3-0.9); MONOCYTES % 14.1 % (0.0-11.0); NEUTROPHIL # 4.3 10^3/ul (1.6-7.5); NEUTROPHILS % 76.1 % (39.0-77.0); NUCLEATED RED BLOOD CELLS # 0.1 10^3/ul (0.0-0.0); NUCLEATED RED BLOOD CELLS% 1.8 /100WBC (0.0-0.0); PLATELET COUNT 210 10^3/UL (140-415); RED BLOOD COUNT 3.45 10^6/ul (4.20-5.40); RED CELL DISTRIBUTION WIDTH 17.2 % (11.5-14.5)
[2018-02-16 05:48] LABS: POSITIVE DIFF @See below
[2018-02-16 05:58] LABS: ALBUMIN/GLOBULIN RATIO 0.73; ANION GAP 21 (5-13); Estimated GFR 15 mL/min (>60)
[2018-02-16 06:03] LABS: ALANINE AMINOTRANSFERASE 12 IU/L (13-69); ALBUMIN 3.8 g/dl (3.3-4.9); ALKALINE PHOSPHATASE 197 IU/L (42-121); ASPARTATE AMINO TRANSFERASE 41 IU/L (15-46); BILIRUBIN,INDIRECT 0.6 mg/dl (0-1.1); BILIRUBIN,TOTAL 1.4 mg/dl (0.2-1.3); BLOOD UREA NITROGEN 21 mg/dl (7-20); CARBON DIOXIDE 22 mmol/L (21-31); CHLORIDE 100 mmol/L (97-110); CREATININE 3.69 mg/dl (0.44-1.00); GLUCOSE 230 mg/dl (70-220); POTASSIUM 4.9 mmol/L (3.5-5.1); SODIUM 143 mmol/L (135-144)
[2018-02-16 06:17] LABS: PHOSPHORUS 7.1 mg/dl (2.5-4.9)
[2018-02-16] MEDS: CLINDAMYCIN 900 MG/D5W (PMX) 50 ML IVPB ×3 (06:19→22:45)
[2018-02-16] MEDS: PANTOPRAZOLE (EC) 40 MG TAB PO (06:20)
[2018-02-16] MEDS: LEVOFLOXACIN 250 MG TAB PO (06:40)
[2018-02-16] MEDS: SEVELAMER CARBONATE 0.8 GM PKT PO ×3 (07:50→17:55)
[2018-02-16] MEDS: COLLAGENASE 5 GM (UD JAR) TOP (09:32)
[2018-02-16] MEDS: INSULIN ASPART [NOVOLOG] 3 ML PEN SC ×7 (09:39→21:00)
[2018-02-16] MEDS: DRONABINOL 2.5 MG CAP PO (09:41)
[2018-02-16] MEDS: HEPARIN 5,000 UNIT/1 ML VIAL SC ×2 (09:41→21:35)
[2018-02-16] MEDS: CLOPIDOGREL 75 MG TAB PO (09:41)
[2018-02-16] MEDS: METOPROLOL (XL) 50 MG TAB PO ×2 (10:22→21:00)
[2018-02-16] MEDS: SODIUM HYPOCHLORITE (1/40) 1 APPLIC BTL IRR (10:23)
[2018-02-16] MEDS: LOSARTAN 50 MG TAB PO ×2 (10:23→21:00)
[2018-02-16] MEDS: INSULIN GLARGINE [LANTus] (100 UNITS/ML) SYG SC (11:56)
[2018-02-16 15:22] LABS: C-PEPTIDE 5.03 ng/mL (0.80-3.85)
[2018-02-16] MEDS: ATORVASTATIN 40 MG TAB PO (21:00)
[2018-02-17] MEDS: ACCU-CHEK XX (02:00)
[2018-02-17] MEDS: COLLAGENASE 5 GM (UD JAR) TOP (04:22)
[2018-02-17] MEDS: PANTOPRAZOLE (EC) 40 MG TAB PO (05:47)
[2018-02-17] MEDS: CLINDAMYCIN 900 MG/D5W (PMX) 50 ML IVPB ×3 (05:48→21:59)
[2018-02-17] MEDS: INSULIN ASPART [NOVOLOG] 3 ML PEN SC ×7 (07:50→21:00)
[2018-02-17] MEDS: DRONABINOL 2.5 MG CAP PO ×2 (09:00→09:11)
[2018-02-17] MEDS: SEVELAMER CARBONATE 0.8 GM PKT PO ×3 (09:11→17:55)
[2018-02-17] MEDS: CLOPIDOGREL 75 MG TAB PO (09:11)
[2018-02-17] MEDS: HEPARIN 5,000 UNIT/1 ML VIAL SC ×2 (09:12→21:54)
[2018-02-17] MEDS: INSULIN GLARGINE [LANTus] (100 UNITS/ML) SYG SC (09:14)
[2018-02-17] MEDS: LOSARTAN 50 MG TAB PO ×2 (09:19→21:58)
[2018-02-17] MEDS: METOPROLOL (XL) 50 MG TAB PO ×2 (09:20→21:59)
[2018-02-17] MEDS: SODIUM HYPOCHLORITE (1/40) 1 APPLIC BTL IRR (09:21)
[2018-02-17] MEDS: GLUCOSE GEL 15 GRAM TUBE PO (12:56)
[2018-02-17] MEDS: GLUCAGON 1 MG INJ IM ×3 (13:46→14:37)
[2018-02-17] MEDS: DEXTROSE 50% 50 ML SYRINGE IV (14:54)
[2018-02-17] MEDS: ATORVASTATIN 40 MG TAB PO (21:00)
[2018-02-17] MEDS: DIPHENHYDRAMINE 50 MG INJ IV (23:48)
[2018-02-18] MEDS: ACCU-CHEK XX (01:17)
[2018-02-18] MEDS: CLINDAMYCIN 900 MG/D5W (PMX) 50 ML IVPB ×2 (05:54→13:26)
[2018-02-18] MEDS: PANTOPRAZOLE (EC) 40 MG TAB PO (06:37)
[2018-02-18] MEDS: LEVOFLOXACIN 250 MG TAB PO (06:38)
[2018-02-18] MEDS: INSULIN ASPART [NOVOLOG] 3 ML PEN SC ×8 (07:50→22:00)
[2018-02-18] MEDS: SEVELAMER CARBONATE 0.8 GM PKT PO ×3 (07:50→17:06)
[2018-02-18] MEDS: COLLAGENASE 5 GM (UD JAR) TOP (08:37)
[2018-02-18] MEDS: SODIUM HYPOCHLORITE (1/40) 1 APPLIC BTL IRR (08:40)
[2018-02-18] MEDS: DRONABINOL 2.5 MG CAP PO (09:53)
[2018-02-18] MEDS: CLOPIDOGREL 75 MG TAB PO (09:53)
[2018-02-18] MEDS: LOSARTAN 50 MG TAB PO (09:54)
[2018-02-18] MEDS: METOPROLOL (XL) 100 MG TAB PO (09:55)
[2018-02-18] MEDS: INSULIN GLARGINE [LANTus] (100 UNITS/ML) SYG SC (09:57)
[2018-02-18] MEDS: HEPARIN 5,000 UNIT/1 ML VIAL SC ×2 (09:57→21:18)
[2018-02-18] MEDS: DIPHENHYDRAMINE 50 MG INJ IV ×2 (10:14→17:06)
[2018-02-18] MEDS: DAPTOMYCIN 335 MG in SOD CHLORIDE 0.9% 100 ML IVPB (15:30)
[2018-02-18] MEDS: ATORVASTATIN 10 MG TAB PO (20:22)
[2018-02-19] MEDS: DIPHENHYDRAMINE 50 MG INJ IV ×3 (00:07→23:42)
[2018-02-19] MEDS: ACCU-CHEK XX (01:47)
[2018-02-19] MEDS ORDERED: VITAMIN A & D 5 GM OINT PACKET TOP (04:35)
[2018-02-19 06:10] LABS: ADD MAN DIFF? NO
[2018-02-19 06:32] LABS: BASOPHILS % 0.6 % (0.0-2.0); EOSINOPHILS # 0.1 10^3/ul (0.0-0.5); EOSINOPHILS % 1.1 % (0.0-7.0); HEMATOCRIT 32.4 % (37.0-47.0); HEMOGLOBIN 10.6 g/dl (12.0-16.0); LYMPHOCYTES # 0.6 10^3/ul (0.8-2.9); LYMPHOCYTES % 13.7 % (15.0-51.0); MEAN CORPUSCULAR HEMOGLOBIN 35.7 pg (29.0-33.0); MEAN CORPUSCULAR HGB CONC 32.7 g/dl (32.0-37.0); MEAN CORPUSCULAR VOLUME 109.1 fl (82.0-101.0); MEAN PLATELET VOLUME 11.9 fl (7.4-10.4); MONOCYTE # 0.5 10^3/ul (0.3-0.9); MONOCYTES % 11.2 % (0.0-11.0); NEUTROPHIL # 3.4 10^3/ul (1.6-7.5); NEUTROPHILS % 72.3 % (39.0-77.0); NUCLEATED RED BLOOD CELLS # 0.1 10^3/ul (0.0-0.0); NUCLEATED RED BLOOD CELLS% 2.8 /100WBC (0.0-0.0); PLATELET COUNT 156 10^3/UL (140-415); RED BLOOD COUNT 2.97 10^6/ul (4.20-5.40); RED CELL DISTRIBUTION WIDTH 18.7 % (11.5-14.5)
[2018-02-19 06:32] LABS: WHITE BLOOD COUNT 4.7 10^3/ul (4.8-10.8)
[2018-02-19] MEDS: INSULIN ASPART [NOVOLOG] 3 ML PEN SC ×7 (07:50→20:32)
[2018-02-19] MEDS: PANTOPRAZOLE (EC) 40 MG TAB PO (08:44)
[2018-02-19] MEDS: SEVELAMER CARBONATE 0.8 GM PKT PO ×3 (08:45→18:34)
[2018-02-19] MEDS: SODIUM HYPOCHLORITE (1/40) 1 APPLIC BTL IRR (08:45)
[2018-02-19] MEDS: LOSARTAN 50 MG TAB PO ×2 (08:46→20:20)
[2018-02-19] MEDS: DRONABINOL 2.5 MG CAP PO (08:46)
[2018-02-19] MEDS: METOPROLOL (XL) 50 MG TAB PO ×2 (08:46→20:20)
[2018-02-19] MEDS: CLOPIDOGREL 75 MG TAB PO (08:46)
[2018-02-19] MEDS: HEPARIN 5,000 UNIT/1 ML VIAL SC ×2 (08:49→20:23)
[2018-02-19] MEDS: INSULIN GLARGINE [LANTus] (100 UNITS/ML) SYG SC (08:50)
[2018-02-19] MEDS: COLLAGENASE 5 GM (UD JAR) TOP (08:52)
[2018-02-19 08:58] LABS: ALANINE AMINOTRANSFERASE 11 IU/L (13-69); ALBUMIN 3.3 g/dl (3.3-4.9); ALKALINE PHOSPHATASE 171 IU/L (42-121); ASPARTATE AMINO TRANSFERASE 29 IU/L (15-46); BILIRUBIN,INDIRECT 0.5 mg/dl (0-1.1); BILIRUBIN,TOTAL 0.7 mg/dl (0.2-1.3); TOTAL PROTEIN 8.2 g/dl (6.1-8.1)
[2018-02-19 09:08] LABS: CK-MB 1.42 ng/ml (0.0-2.4); TROPONIN-I < 0.012 ng/ml (0.000-0.120)
[2018-02-19 10:15] LABS: ANION GAP 18 (5-13); BLOOD UREA NITROGEN 32 mg/dl (7-20); CALCIUM 8.8 mg/dl (8.4-10.2); CARBON DIOXIDE 25 mmol/L (21-31); CHLORIDE 105 mmol/L (97-110); CK INDEX 3.3; CREATINE KINASE 43 IU/L (23-200); CREATININE 4.13 mg/dl (0.44-1.00); Estimated GFR 13 mL/min (>60); GLUCOSE 159 mg/dl (70-220); POTASSIUM 4.4 mmol/L (3.5-5.1); SODIUM 148 mmol/L (135-144)
[2018-02-19] MEDS: EPOETIN 10000 UNITS/1 ML INJ (ESRD) SC ×2 (12:40→18:33)
[2018-02-19] MEDS: TRIAMCINOLONE ACET 0.5% 15 GM CR TOP ×2 (15:32→20:28)
[2018-02-19] MEDS: ATORVASTATIN 40 MG TAB PO (20:19)
[2018-02-19] MEDS: ONDANSETRON 4 MG TAB PO (23:50)
[2018-02-20] MEDS: morphine LIQ (10 MG/5 ML) CUP PO (00:12)
[2018-02-20] MEDS: ACCU-CHEK XX (01:53)
[2018-02-20 05:06] LABS: ADD MAN DIFF? NO
[2018-02-20 05:13] LABS: BASOPHILS % 0.3 % (0.0-2.0); EOSINOPHILS % 0.7 % (0.0-7.0); HEMOGLOBIN 9.5 g/dl (12.0-16.0); LYMPHOCYTES # 0.7 10^3/ul (0.8-2.9); MEAN CORPUSCULAR HEMOGLOBIN 34.9 pg (29.0-33.0); MEAN CORPUSCULAR HGB CONC 32.8 g/dl (32.0-37.0); MEAN CORPUSCULAR VOLUME 106.6 fl (82.0-101.0); MEAN PLATELET VOLUME 11.8 fl (7.4-10.4); MONOCYTE # 0.9 10^3/ul (0.3-0.9); MONOCYTES % 14.2 % (0.0-11.0); NEUTROPHIL # 4.3 10^3/ul (1.6-7.5); NEUTROPHILS % 72.1 % (39.0-77.0); NUCLEATED RED BLOOD CELLS% 0.5 /100WBC (0.0-0.0); PLATELET COUNT 159 10^3/UL (140-415); RED BLOOD COUNT 2.72 10^6/ul (4.20-5.40)
[2018-02-20 05:53] LABS: ANION GAP 11 (5-13); BLOOD UREA NITROGEN 20 mg/dl (7-20); CALCIUM 8.2 mg/dl (8.4-10.2); CARBON DIOXIDE 31 mmol/L (21-31); CHLORIDE 98 mmol/L (97-110); CREATININE 2.78 mg/dl (0.44-1.00); Estimated GFR 21 mL/min (>60); GLUCOSE 227 mg/dl (70-220); PHOSPHORUS 3.9 mg/dl (2.5-4.9); POTASSIUM 3.9 mmol/L (3.5-5.1); SODIUM 140 mmol/L (135-144)
[2018-02-20] MEDS: PANTOPRAZOLE (EC) 40 MG TAB PO (06:42)
[2018-02-20] MEDS: LEVOFLOXACIN 250 MG TAB PO (06:42)
[2018-02-20] MEDS: CHOLECALCIFEROL 1,000 UNIT TAB PO (09:11)
[2018-02-20] MEDS: SEVELAMER CARBONATE 0.8 GM PKT PO ×3 (09:11→17:55)
[2018-02-20] MEDS: MULTIVIT/CA CARB/B CMPLX/FA TAB PO (09:11)
[2018-02-20] MEDS: CLOPIDOGREL 75 MG TAB PO (09:11)
[2018-02-20] MEDS: INSULIN GLARGINE [LANTus] (100 UNITS/ML) SYG SC (09:13)
[2018-02-20] MEDS: HEPARIN 5,000 UNIT/1 ML VIAL SC ×2 (09:13→21:44)
[2018-02-20] MEDS: INSULIN ASPART [NOVOLOG] 3 ML PEN SC ×5 (09:14→21:00)
[2018-02-20] MEDS: LOSARTAN 50 MG TAB PO (09:20)
[2018-02-20] MEDS: METOPROLOL (XL) 100 MG TAB PO (09:21)
[2018-02-20] MEDS: DRONABINOL 2.5 MG CAP PO (10:42)
[2018-02-20] MEDS: SODIUM HYPOCHLORITE (1/40) 1 APPLIC BTL IRR (12:51)
[2018-02-20] MEDS: COLLAGENASE 5 GM (UD JAR) TOP (12:52)
[2018-02-20] MEDS: TRIAMCINOLONE ACET 0.5% 15 GM CR TOP ×2 (12:52→21:42)
[2018-02-20] MEDS: DIPHENHYDRAMINE 50 MG INJ IV (12:53)
[2018-02-20] MEDS: LINAGLIPTIN 5 MG TABLET PO (14:43)
[2018-02-20] MEDS: ONDANSETRON 4 MG TAB PO (16:42)
[2018-02-20] MEDS: SOD CHLORIDE 0.9% IVPB (16:42)
[2018-02-20] MEDS: DAPTOMYCIN IVPB (16:42)
[2018-02-20] MEDS: ATORVASTATIN 40 MG TAB PO (21:24)
[2018-02-21] MEDS: ONDANSETRON 4 MG INJ IV (00:19)
[2018-02-21] MEDS: DIPHENHYDRAMINE 50 MG INJ IV ×3 (00:19→14:04)
[2018-02-21] MEDS: morphine LIQ (10 MG/5 ML) CUP PO (00:20)
[2018-02-21] MEDS: ACCU-CHEK XX (02:00)
[2018-02-21] MEDS: PANTOPRAZOLE (EC) 40 MG TAB PO (07:22)
[2018-02-21] MEDS: SEVELAMER CARBONATE 0.8 GM PKT PO ×3 (07:50→18:39)
[2018-02-21] MEDS: CHOLECALCIFEROL 1,000 UNIT TAB PO (08:47)
[2018-02-21] MEDS: LINAGLIPTIN 5 MG TABLET PO (08:47)
[2018-02-21] MEDS: MULTIVIT/CA CARB/B CMPLX/FA TAB PO (08:48)
[2018-02-21] MEDS: LOSARTAN 50 MG TAB PO ×3 (08:48→20:29)
[2018-02-21] MEDS: CLOPIDOGREL 75 MG TAB PO (08:49)
[2018-02-21] MEDS: DRONABINOL 2.5 MG CAP PO (08:49)
[2018-02-21] MEDS: METOPROLOL (XL) 50 MG TAB PO ×3 (08:49→20:29)
[2018-02-21] MEDS: HEPARIN 5,000 UNIT/1 ML VIAL SC ×2 (08:50→20:36)
[2018-02-21] MEDS: INSULIN ASPART [NOVOLOG] 3 ML PEN SC ×4 (08:51→20:36)
[2018-02-21] MEDS: TRIAMCINOLONE ACET 0.1% 15 GM OINT TOP ×2 (09:00→20:30)
[2018-02-21] MEDS: EPOETIN 10000 UNITS/1 ML INJ (ESRD) SC (11:39)
[2018-02-21] MEDS: SODIUM HYPOCHLORITE (1/40) 1 APPLIC BTL IRR (11:39)
[2018-02-21] MEDS: COLLAGENASE 5 GM (UD JAR) TOP (11:40)
[2018-02-21] MEDS: ATORVASTATIN 40 MG TAB PO (20:29)
[2018-02-22] MEDS: DIPHENHYDRAMINE 50 MG INJ IV ×2 (00:29→20:50)
[2018-02-22] MEDS: ONDANSETRON 4 MG INJ IV ×2 (00:29→20:49)
[2018-02-22] MEDS: morphine LIQ (10 MG/5 ML) CUP PO (00:29)
[2018-02-22] MEDS: ACCU-CHEK XX (01:29)
[2018-02-22] MEDS ORDERED: VITAMIN A & D 5 GM OINT PACKET TOP (02:56)
[2018-02-22 06:06] LABS: ALANINE AMINOTRANSFERASE 7 IU/L (13-69); ALBUMIN 3.5 g/dl (3.3-4.9); ALBUMIN/GLOBULIN RATIO 0.63; ALKALINE PHOSPHATASE 214 IU/L (42-121); ANION GAP 14 (5-13); ASPARTATE AMINO TRANSFERASE 28 IU/L (15-46); BILIRUBIN,INDIRECT 0.5 mg/dl (0-1.1); BILIRUBIN,TOTAL 0.6 mg/dl (0.2-1.3); BLOOD UREA NITROGEN 23 mg/dl (7-20); CALCIUM 8.6 mg/dl (8.4-10.2); CARBON DIOXIDE 29 mmol/L (21-31); CHLORIDE 99 mmol/L (97-110); CREATININE 3.15 mg/dl (0.44-1.00); Estimated GFR 18 mL/min (>60); GLUCOSE 272 mg/dl (70-220); POTASSIUM 4.4 mmol/L (3.5-5.1); SODIUM 142 mmol/L (135-144)
[2018-02-22] MEDS: PANTOPRAZOLE (EC) 40 MG TAB PO (07:26)
[2018-02-22] MEDS: SEVELAMER CARBONATE 0.8 GM PKT PO ×3 (08:53→17:53)
[2018-02-22] MEDS: MULTIVIT/CA CARB/B CMPLX/FA TAB PO (08:53)
[2018-02-22] MEDS: LINAGLIPTIN 5 MG TABLET PO (08:54)
[2018-02-22] MEDS: CLOPIDOGREL 75 MG TAB PO (08:54)
[2018-02-22] MEDS: CHOLECALCIFEROL 1,000 UNIT TAB PO (08:54)
[2018-02-22] MEDS: DRONABINOL 2.5 MG CAP PO (08:55)
[2018-02-22] MEDS: INSULIN ASPART [NOVOLOG] 3 ML PEN SC ×4 (08:56→20:44)
[2018-02-22] MEDS: HEPARIN 5,000 UNIT/1 ML VIAL SC ×2 (08:56→20:45)
[2018-02-22] MEDS: COLLAGENASE 5 GM (UD JAR) TOP (08:57)
[2018-02-22] MEDS: TRIAMCINOLONE ACET 0.1% 15 GM OINT TOP ×2 (08:57→20:47)
[2018-02-22] MEDS: SODIUM HYPOCHLORITE (1/40) 1 APPLIC BTL IRR (08:57)
[2018-02-22] MEDS: LEVOFLOXACIN 250 MG TAB PO (13:06)
[2018-02-22] MEDS: LOSARTAN 50 MG TAB PO (13:09)
[2018-02-22] MEDS: METOPROLOL (XL) 100 MG TAB PO (13:11)
[2018-02-22] MEDS: SOD CHLORIDE 0.9% IVPB (15:16)
[2018-02-22] MEDS: DAPTOMYCIN IVPB (15:16)
[2018-02-22] MEDS: BROMOCRIPTINE 2.5 MG TAB PO (16:42)
[2018-02-22] MEDS: ATORVASTATIN 40 MG TAB PO (20:43)
[2018-02-23] MEDS: DIPHENHYDRAMINE 50 MG INJ IV ×3 (01:49→17:43)
[2018-02-23] MEDS: ONDANSETRON 4 MG INJ IV (01:49)
[2018-02-23] MEDS: ACCU-CHEK XX ×2 (02:00→22:34)
[2018-02-23] MEDS: PANTOPRAZOLE (EC) 40 MG TAB PO (06:24)
[2018-02-23] MEDS: CLOPIDOGREL 75 MG TAB PO (08:24)
[2018-02-23] MEDS: DRONABINOL 2.5 MG CAP PO (08:25)
[2018-02-23] MEDS: BROMOCRIPTINE 2.5 MG TAB PO (08:25)
[2018-02-23] MEDS: CHOLECALCIFEROL 1,000 UNIT TAB PO (08:26)
[2018-02-23] MEDS: LOSARTAN 50 MG TAB PO ×2 (08:26→22:21)
[2018-02-23] MEDS: INSULIN ASPART [NOVOLOG] 3 ML PEN SC ×4 (09:00→21:00)
[2018-02-23] MEDS: SEVELAMER CARBONATE 0.8 GM PKT PO ×3 (09:12→17:46)
[2018-02-23] MEDS: SODIUM HYPOCHLORITE (1/40) 1 APPLIC BTL IRR (09:13)
[2018-02-23] MEDS: LINAGLIPTIN 5 MG TABLET PO (09:14)
[2018-02-23] MEDS: HEPARIN 5,000 UNIT/1 ML VIAL SC ×2 (09:16→22:18)
[2018-02-23] MEDS: COLLAGENASE 5 GM (UD JAR) TOP (09:19)
[2018-02-23] MEDS: TRIAMCINOLONE ACET 0.1% 15 GM OINT TOP ×2 (09:19→21:00)
[2018-02-23] MEDS: METOPROLOL (XL) 50 MG TAB PO ×2 (09:21→22:22)
[2018-02-23] MEDS: MULTIVIT/CA CARB/B CMPLX/FA TAB PO (09:21)
[2018-02-23 16:15] LABS: ADD MAN DIFF? NO
[2018-02-23 16:26] LABS: WHITE BLOOD COUNT 5.5 10^3/ul (4.8-10.8)
[2018-02-23 16:26] LABS: ABNORMAL IP MESSAGE 1; BASOPHILS % 0.5 % (0.0-2.0); EOSINOPHILS # 0.1 10^3/ul (0.0-0.5); HEMATOCRIT 32.1 % (37.0-47.0); HEMOGLOBIN 10.2 g/dl (12.0-16.0); LYMPHOCYTES # 0.5 10^3/ul (0.8-2.9); LYMPHOCYTES % 9.4 % (15.0-51.0); MEAN CORPUSCULAR HEMOGLOBIN 35.3 pg (29.0-33.0); MEAN CORPUSCULAR HGB CONC 31.8 g/dl (32.0-37.0); MEAN CORPUSCULAR VOLUME 111.1 fl (82.0-101.0); MEAN PLATELET VOLUME 11.6 fl (7.4-10.4); MONOCYTE # 0.8 10^3/ul (0.3-0.9); MONOCYTES % 14.3 % (0.0-11.0); NEUTROPHILS % 73.4 % (39.0-77.0); PLATELET COUNT 153 10^3/UL (140-415); RED BLOOD COUNT 2.89 10^6/ul (4.20-5.40); RED CELL DISTRIBUTION WIDTH 18.3 % (11.5-14.5)
[2018-02-23 16:27] LABS: POSITIVE DIFF @See below
[2018-02-23 16:47] LABS: ANION GAP 14 (5-13); BLOOD UREA NITROGEN 42 mg/dl (7-20); CARBON DIOXIDE 26 mmol/L (21-31); CHLORIDE 101 mmol/L (97-110); CREATININE 4.55 mg/dl (0.44-1.00); Estimated GFR 12 mL/min (>60); GLUCOSE 214 mg/dl (70-220); MAGNESIUM 2.1 mg/dl (1.7-2.5); PHOSPHORUS 6.7 mg/dl (2.5-4.9); POTASSIUM 4.8 mmol/L (3.5-5.1); SODIUM 141 mmol/L (135-144)
[2018-02-23] MEDS: CAPSAICIN 0.025% 60 GM CR TOP ×2 (17:00→22:16)
[2018-02-23] MEDS: NATEGLINIDE 60 MG TAB PO ×2 (17:25→22:17)
[2018-02-23] MEDS: ATORVASTATIN 40 MG TAB PO (22:16)
[2018-02-24] MEDS: DIPHENHYDRAMINE 50 MG INJ IV ×2 (05:06→23:41)
[2018-02-24] MEDS: LEVOFLOXACIN 250 MG TAB PO (06:09)
[2018-02-24] MEDS: PANTOPRAZOLE (EC) 40 MG TAB PO (06:09)
[2018-02-24] MEDS: INSULIN ASPART [NOVOLOG] 3 ML PEN SC ×4 (08:15→20:38)
[2018-02-24] MEDS: SEVELAMER CARBONATE 0.8 GM PKT PO ×3 (08:15→17:55)
[2018-02-24] MEDS: LINAGLIPTIN 5 MG TABLET PO (09:00)
[2018-02-24] MEDS: CAPSAICIN 0.025% 60 GM CR TOP ×4 (09:07→20:41)
[2018-02-24] MEDS: TRIAMCINOLONE ACET 0.1% 15 GM OINT TOP ×2 (09:07→20:41)
[2018-02-24] MEDS: SODIUM HYPOCHLORITE (1/40) 1 APPLIC BTL IRR (09:07)
[2018-02-24 09:08] LABS: GLUCOSE 67 mg/dl (70-220)
[2018-02-24] MEDS: CLOPIDOGREL 75 MG TAB PO (09:08)
[2018-02-24] MEDS: COLLAGENASE 5 GM (UD JAR) TOP (09:08)
[2018-02-24] MEDS: MULTIVIT/CA CARB/B CMPLX/FA TAB PO (09:08)
[2018-02-24] MEDS: CHOLECALCIFEROL 1,000 UNIT TAB PO (09:08)
[2018-02-24] MEDS: HEPARIN 5,000 UNIT/1 ML VIAL SC ×2 (09:10→20:30)
[2018-02-24] MEDS: DRONABINOL 2.5 MG CAP PO (09:16)
[2018-02-24] MEDS: LOSARTAN 50 MG TAB PO ×2 (09:16→20:37)
[2018-02-24] MEDS: METOPROLOL (XL) 50 MG TAB PO ×2 (09:17→23:01)
[2018-02-24] MEDS: NATEGLINIDE 60 MG TAB PO ×2 (12:30→17:54)
[2018-02-24] MEDS: SOD CHLORIDE 0.9% IVPB (15:17)
[2018-02-24] MEDS: DAPTOMYCIN IVPB (15:17)
[2018-02-24] MEDS: ONDANSETRON 4 MG INJ IV (15:17)
[2018-02-24] MEDS: ATORVASTATIN 40 MG TAB PO (20:28)
[2018-02-25] MEDS: ACCU-CHEK XX (02:00)
[2018-02-25] MEDS: PANTOPRAZOLE (EC) 40 MG TAB PO (06:11)
[2018-02-25] MEDS: CLOPIDOGREL 75 MG TAB PO (08:39)
[2018-02-25] MEDS: MULTIVIT/CA CARB/B CMPLX/FA TAB PO (08:39)
[2018-02-25] MEDS: NATEGLINIDE 60 MG TAB PO ×3 (08:39→17:25)
[2018-02-25] MEDS: HEPARIN 5,000 UNIT/1 ML VIAL SC ×2 (08:40→21:00)
[2018-02-25] MEDS: SEVELAMER CARBONATE 0.8 GM PKT PO ×3 (08:40→17:40)
[2018-02-25] MEDS: INSULIN ASPART [NOVOLOG] 3 ML PEN SC ×4 (08:41→21:00)
[2018-02-25] MEDS: SODIUM HYPOCHLORITE (1/40) 1 APPLIC BTL IRR (08:42)
[2018-02-25] MEDS: LOSARTAN 50 MG TAB PO (09:00)
[2018-02-25] MEDS: METOPROLOL (XL) 100 MG TAB PO (09:00)
[2018-02-25] MEDS: DRONABINOL 2.5 MG CAP PO (09:00)
[2018-02-25] MEDS: TRIAMCINOLONE ACET 0.1% 15 GM OINT TOP ×2 (09:20→21:00)
[2018-02-25] MEDS: LINAGLIPTIN 5 MG TABLET PO (09:21)
[2018-02-25] MEDS: COLLAGENASE 5 GM (UD JAR) TOP (09:21)
[2018-02-25] MEDS: CAPSAICIN 0.025% 60 GM CR TOP ×4 (09:21→21:00)
[2018-02-25] MEDS: CHOLECALCIFEROL 1,000 UNIT TAB PO (09:21)
[2018-02-25] MEDS: DIPHENHYDRAMINE 50 MG INJ IV (16:06)
[2018-02-25 16:51] LABS: PTH INTACT 486 pg/mL (14-64)
[2018-02-25] MEDS: ATORVASTATIN 40 MG TAB PO (21:00)
[2018-02-26] MEDS: HEPARIN 5,000 UNIT/1 ML VIAL SC ×3 (00:32→22:06)
[2018-02-26] MEDS: DIPHENHYDRAMINE 50 MG INJ IV ×3 (01:40→22:05)
[2018-02-26] MEDS: ACCU-CHEK XX (02:00)
[2018-02-26 05:14] LABS: ADD MAN DIFF? NO
[2018-02-26 05:15] LABS: ABNORMAL IP MESSAGE 1; BASOPHILS % 0.3 % (0.0-2.0); EOSINOPHILS # 0.1 10^3/ul (0.0-0.5); EOSINOPHILS % 1.4 % (0.0-7.0); HEMATOCRIT 31.6 % (37.0-47.0); LYMPHOCYTES # 0.6 10^3/ul (0.8-2.9); LYMPHOCYTES % 8.8 % (15.0-51.0); MEAN CORPUSCULAR HEMOGLOBIN 35.5 pg (29.0-33.0); MEAN CORPUSCULAR HGB CONC 31.6 g/dl (32.0-37.0); MEAN CORPUSCULAR VOLUME 112.1 fl (82.0-101.0); MEAN PLATELET VOLUME 11.6 fl (7.4-10.4); MONOCYTE # 0.9 10^3/ul (0.3-0.9); MONOCYTES % 14.7 % (0.0-11.0); NEUTROPHIL # 4.7 10^3/ul (1.6-7.5); NEUTROPHILS % 74.5 % (39.0-77.0); PLATELET COUNT 156 10^3/UL (140-415); RED BLOOD COUNT 2.82 10^6/ul (4.20-5.40); RED CELL DISTRIBUTION WIDTH 18.4 % (11.5-14.5)
[2018-02-26 05:15] LABS: WHITE BLOOD COUNT 6.3 10^3/ul (4.8-10.8)
[2018-02-26 05:18] LABS: POSITIVE DIFF @See below
[2018-02-26 05:38] LABS: ANION GAP 15 (5-13); BLOOD UREA NITROGEN 32 mg/dl (7-20); CALCIUM 8.5 mg/dl (8.4-10.2); CARBON DIOXIDE 29 mmol/L (21-31); CHLORIDE 98 mmol/L (97-110); CREATININE 3.58 mg/dl (0.44-1.00); Estimated GFR 16 mL/min (>60); GLUCOSE 197 mg/dl (70-220); MAGNESIUM 2.1 mg/dl (1.7-2.5); PHOSPHORUS 4.1 mg/dl (2.5-4.9); POTASSIUM 4.6 mmol/L (3.5-5.1); SODIUM 142 mmol/L (135-144)
[2018-02-26 05:52] LABS: CREATINE KINASE 42 IU/L (23-200)
[2018-02-26] MEDS: LEVOFLOXACIN 250 MG TAB PO (06:00)
[2018-02-26] MEDS: LOSARTAN 50 MG TAB PO ×2 (09:00→22:11)
[2018-02-26] MEDS: LINAGLIPTIN 5 MG TABLET PO (09:02)
[2018-02-26] MEDS: CLOPIDOGREL 75 MG TAB PO (09:02)
[2018-02-26] MEDS: MULTIVIT/CA CARB/B CMPLX/FA TAB PO (09:02)
[2018-02-26] MEDS: NATEGLINIDE 60 MG TAB PO ×3 (09:02→17:57)
[2018-02-26] MEDS: CHOLECALCIFEROL 1,000 UNIT TAB PO (09:02)
[2018-02-26] MEDS: PANTOPRAZOLE (EC) 40 MG TAB PO (09:02)
[2018-02-26] MEDS: SEVELAMER CARBONATE 0.8 GM PKT PO ×3 (09:03→17:55)
[2018-02-26] MEDS: SODIUM HYPOCHLORITE (1/40) 1 APPLIC BTL IRR (09:04)
[2018-02-26] MEDS: COLLAGENASE 5 GM (UD JAR) TOP ×2 (09:04→20:00)
[2018-02-26] MEDS: INSULIN ASPART [NOVOLOG] 3 ML PEN SC ×4 (09:05→21:00)
[2018-02-26] MEDS: CAPSAICIN 0.025% 60 GM CR TOP ×4 (09:06→21:00)
[2018-02-26] MEDS: TRIAMCINOLONE ACET 0.1% 15 GM OINT TOP ×2 (09:06→21:00)
[2018-02-26] MEDS: METOPROLOL (XL) 50 MG TAB PO ×2 (09:59→22:12)
[2018-02-26] MEDS: DRONABINOL 2.5 MG CAP PO (09:59)
[2018-02-26] MEDS: DAPTOMYCIN 335 MG in SOD CHLORIDE 0.9% 100 ML IVPB (15:00)
[2018-02-26] MEDS: ATORVASTATIN 40 MG TAB PO (22:05)
[2018-02-27] MEDS: ACCU-CHEK XX (02:00)
[2018-02-27] MEDS: ONDANSETRON 4 MG INJ IV ×2 (03:42→20:34)
[2018-02-27] MEDS: morphine LIQ (10 MG/5 ML) CUP PO ×2 (03:42→08:46)
[2018-02-27] MEDS: DIPHENHYDRAMINE 50 MG INJ IV ×3 (05:01→20:34)
[2018-02-27] MEDS: SEVELAMER CARBONATE 0.8 GM PKT PO ×4 (07:50→17:55)
[2018-02-27] MEDS: CALCITRIOL 1 MCG INJ IV ×2 (08:00→17:56)
[2018-02-27] MEDS: EPOETIN 4000 UNITS/1 ML INJ (ESRD) SC ×2 (08:30→18:00)
[2018-02-27] MEDS: CLOPIDOGREL 75 MG TAB PO (08:38)
[2018-02-27] MEDS: CHOLECALCIFEROL 1,000 UNIT TAB PO (08:38)
[2018-02-27] MEDS: GENTAMICIN 0.1% 15 GM OINT TOP (08:38)
[2018-02-27] MEDS: PANTOPRAZOLE (EC) 40 MG TAB PO (08:38)
[2018-02-27] MEDS: LINAGLIPTIN 5 MG TABLET PO (08:39)
[2018-02-27] MEDS: NATEGLINIDE 60 MG TAB PO ×3 (08:39→17:25)
[2018-02-27] MEDS: SODIUM HYPOCHLORITE (1/40) 1 APPLIC BTL IRR (08:40)
[2018-02-27] MEDS: MULTIVIT/CA CARB/B CMPLX/FA TAB NGT (08:40)
[2018-02-27] MEDS: TRIAMCINOLONE ACET 0.1% 15 GM OINT TOP (08:42)
[2018-02-27] MEDS: CAPSAICIN 0.025% 60 GM CR TOP ×3 (08:42→17:00)
[2018-02-27] MEDS: INSULIN ASPART [NOVOLOG] 3 ML PEN SC ×4 (08:45→20:34)
[2018-02-27 08:46] LABS: PTH INTACT 638 pg/mL (14-64)
[2018-02-27] MEDS: HEPARIN 5,000 UNIT/1 ML VIAL SC ×2 (08:46→20:35)
[2018-02-27] MEDS: MULTIVIT/CA CARB/B CMPLX/FA TAB PO (08:52)
[2018-02-27] MEDS: METOPROLOL (XL) 100 MG TAB PO (09:00)
[2018-02-27] MEDS: LOSARTAN 50 MG TAB PO (09:00)
[2018-02-27] MEDS: DRONABINOL 2.5 MG CAP PO (09:09)
[2018-02-27] MEDS ORDERED: LOPERAMIDE 2 MG CAP PO (10:30)
[2018-02-27] MEDS: ATORVASTATIN 40 MG TAB PO (20:35)
== END 2018-02-27 21:40 | DRG 623 ==
LOC: MS1 17:36 → E/R 16:20
PROC: 5A1D70Z Performance of Urinary Filtration, Intermittent, Less than 6 Hours Per Day (ICD-10-PCS; 2018-02-08)
PROC: 0JBR0ZZ Excision of Left Foot Subcutaneous Tissue and Fascia, Open Approach (ICD-10-PCS; principal; 2018-02-11)
DX: E10.621 Type 1 diabetes mellitus with foot ulcer (principal); I96 Gangrene, not elsewhere classified; L03.116 Cellulitis of left lower limb; L97.228 Non-pressure chronic ulcer of left calf with other specified severity; M86.8X7 Other osteomyelitis, ankle and foot; E10.52 Type 1 diabetes mellitus with diabetic peripheral angiopathy with gangrene; R44.3 Hallucinations, unspecified; I13.2 Hypertensive heart and chronic kidney disease with heart failure and with stage 5 chronic kidney disease, or end stage renal disease; I50.22 Chronic systolic (congestive) heart failure; D63.1 Anemia in chronic kidney disease; E78.5 Hyperlipidemia, unspecified; E10.622 Type 1 diabetes mellitus with other skin ulcer; E10.69 Type 1 diabetes mellitus with other specified complication; E10.42 Type 1 diabetes mellitus with diabetic polyneuropathy; E10.22 Type 1 diabetes mellitus with diabetic chronic kidney disease; G89.4 Chronic pain syndrome; I25.10 Atherosclerotic heart disease of native coronary artery without angina pectoris; I34.0 Nonrheumatic mitral (valve) insufficiency; L97.529 Non-pressure chronic ulcer of other part of left foot with unspecified severity; L89.620 Pressure ulcer of left heel, unstageable; L29.8 Other pruritus; N18.6 End stage renal disease; N25.81 Secondary hyperparathyroidism of renal origin; R41.0 Disorientation, unspecified; T42.8X5A Adverse effect of antiparkinsonism drugs and other central muscle-tone depressants, initial encounter; Z99.2 Dependence on renal dialysis; Z86.73 Personal history of transient ischemic attack (TIA), and cerebral infarction without residual deficits; Z87.11 Personal history of peptic ulcer disease; Z79.4 Long term (current) use of insulin
CPT/HCPCS: 29581-50; 71045; 73610; 73630-LT; 73718; 73721; 80048; 80053; 80076; 82306; 82533; 82550; 82553; 82652; 82947; 82962; 83036; 83605; 83735; 83970; 84100; 84484; 84681; 85025; 85610; 85651; 85730; 86140; 87040; 87070; 87081; 87340; 90935; 93005; 93922; 99285-25